=== PATIENT | male | born 1970 | race Two or more races ===

== ENCOUNTER 2020-02-09 13:24 | Inpatient (IN) | payer MEDICAID ==
[~2020-02-09] VITALS: Ht 172.7 cm; Wt 88.5 kg
--- NOTE | 2020-02-09 13:35 | NUR ---
ED Nurse Note: Patient walked in to ER from home c/o SOB x 1 week, his is COVID (+), pt appears to be in respiratory distress O2 saturation 77% on RA, 100.8 oral temp. Patient AAO x4, walked in with steady gait, skin is hot to touch
--- NOTE | 2020-02-09 13:38 | NUR ---
ED Nurse Note: IV line was established on right AC 18ga, blood sent to lab
[2020-02-09 13:40] VITALS: BP 133/77
[2020-02-09] MEDS ORDERED: cefTRIAXone 1 GM in NS 55 ML IV ONE (14:00)
[2020-02-09] MEDS ORDERED: Azithromycin 500 MG in NS 275 ML IVPB ONE (14:00)
[2020-02-09] MEDS ORDERED: Acetaminophen 500mg (ES) tab ORAL ONE (14:00)
[2020-02-09] MEDS ORDERED: dexAMETHasone 10mg/ml Inj IV ONE (14:00)
--- NOTE | 2020-02-09 14:02 | Emergency Room Report ---
History of Present Illness General Chief Complaint: Dyspnea/Respdistress Source: Patient Present Illness HPI Disclaimer: Please note that this report is being documented using Plex[employer] technology. This can lead to erroneous entry secondary to incorrect interpretation by the dictating instrument. HPI: 49-year-old male history of hypertension, asthma and diabetes presents for evaluation of shortness of breath. Patient states he has been feeling fatigued, low-grade fevers, chest congestion with cough and worsening shortness of breath over the past 2 weeks. His was diagnosed with COVID-19 last week but he himself has not yet been tested. Worsening shortness of breath over the past few days. Has not taken any medication prior to arrival. Is no longer using medication for diabetes or asthma. Denies smoking. Has not taken medication prior to arrival. No exacerbating or relieving factors. Denies chest pain, palpitations, abdominal pain, nausea. Reports diarrhea yesterday. PMH: Hypertension, asthma, diabetes PSH: Reviewed Allergies: Denied Social Hx: Non-smoker Allergies: Coded Allergies: No Known Allergies (Unverified , 02/09/20) COVID-19 Screening Contact w/high risk pt: Yes Experienced COVID-19 symptoms?: Yes COVID-19 Testing performed SUPPORT TECHNICIAN: No Nursing Documentation-PMH Hx Diabetes: Yes Review of Systems All Other Systems: negative except mentioned in HPI Physical Exam Vital Signs Date Time Temp Pulse Resp B/P (MAP) Pulse Ox O2 Delivery O2 Flow Rate FiO2 02/09/20 13:30 100.8 122 31 78 Room Air General: Awake and alert, appears uncomfortable HEENT: NC/AT. EOMI. Cardiovascular: Tachycardic Resp: Tachypnea and increased work of breathing. 78% on room air. Abdomen: Abdomen is soft, nondistended. Nontender Skin: Intact. No abrasions, laceration or rash over the exposed skin MSK: Normal tone and bulk. Moving all extremities. No obvious deformity. Neuro: Awake and alert. Mentating appropriately. Procedures Critical Care Time Critical Care Time Total critical care time: Approximately 45 minutes Due to a high probability of clinically significant, life threatening deterioration, the patient required the highest level of preparedness to intervene emergently and I personally spent this critical care time directly and personally managing the patient. This critical care time included obtaining a history, examining the patient, pulse oximetry, ordering and reviewing studies, ordering treatments, evaluating response to treatment and updating management plan as needed, frequent reassessment and discussion with other providers as well as arranging for ultimate disposition. This critical to care time was performed to assess and manage the high probability of life-threatening deterioration that could result in multiorgan failure. This critical care time is separate from the separately billable procedures and treating other patients. Medical Decision Making Diagnostic Impression: Primary Impression: Hypoxia Additional Impressions: COVID-19 Pneumonia Elevated d-dimer ER Course 49-year-old male presenting for evaluation of shortness of breath. Differential includes is not limited to COVID-19, pneumonia, asthma exacerbation, sepsis, viral syndrome, ACS, bronchitis, pneumothorax among others. Patient arrives hypoxic and given the recent positive COVID-19 test for his strong suspicion for COVID-19. Send rapid swab patient placed on supplemental oxygen which improved saturation to 95% on 15 L nonrebreather however he will require BiPAP for his work of breathing. Treated with dexamethasone and antibiotics. D-dimer positive and patient treated with Lovenox. Broad labs including culture sent. Will require admission. Accepted to panel physicianJaycee. Laboratory Tests Test 02/09/20 14:10 White Blood Count 7.2 K/UL (4.8-10.8) Red Blood Count 5.39 M/UL (4.70-6.10) Hemoglobin 15.8 G/DL (14.2-18.0) Hematocrit 47.7 % (42.0-52.0) Mean Corpuscular Volume 89 FL (80-99) Mean Corpuscular Hemoglobin 29.3 PG (27.0-31.0) Mean Corpuscular Hemoglobin Concent 33.1 G/DL (32.0-36.0) Red Cell Distribution Width 11.7 % (11.6-14.8) Platelet Count 290 K/UL (150-450) Mean Platelet Volume 5.6 FL (6.5-10.1) L Neutrophils (%) (Auto) 82.9 % (45.0-75.0) H Lymphocytes (%) (Auto) 13.4 % (20.0-45.0) L Monocytes (%) (Auto) 3.5 % (1.0-10.0) Eosinophils (%) (Auto) 0.0 % (0.0-3.0) Basophils (%) (Auto) 0.3 % (0.0-2.0) Prothrombin Time 10.9 SEC (9.30-11.50) Prothrombin Time INR 1.0 (0.9-1.1) Activated Partial Thromboplast Time 30 SEC (23-33) D-Dimer 0.73 mg/L FEU (0.00-0.49) H Sodium Level 134 MMOL/L (136-145) L Potassium Level 3.7 MMOL/L (3.5-5.1) Chloride Level 99 MMOL/L (98-107) Carbon Dioxide Level 26 MMOL/L (21-32) Anion Gap 9 mmol/L (5-15) Blood Urea Nitrogen 11 mg/dL (7-18) Creatinine 0.8 MG/DL (0.55-1.30) Estimated Glomerular Filtration Rate > 60 mL/min (>60) Glucose Level 246 MG/DL (74-106) H Lactic Acid Level 1.70 mmol/L (0.4-2.0) Calcium Level 8.9 MG/DL (8.5-10.1) Phosphorus Level 2.6 MG/DL (2.5-4.9) Magnesium Level 2.0 MG/DL (1.8-2.4) Ferritin 1441 NG/ML (8-388) H Total Bilirubin 0.5 MG/DL (0.2-1.0) Aspartate Amino Transferase (AST) 53 U/L (15-37) H Alanine Aminotransferase (ALT) 57 U/L (12-78) Alkaline Phosphatase 64 U/L (46-116) Lactate Dehydrogenase 401 U/L (81-234) H Total Creatine Kinase 107 U/L (26-308) Creatine Kinase MB < 0.5 NG/ML (0.0-3.6) Creatine Kinase MB Relative Index 0.4 Troponin I 0.000 ng/mL (0.000-0.056) C-Reactive Protein, Quantitative 31.9 mg/dL (0.00-0.90) H Pro-B-Type Natriuretic Peptide 41 pg/mL (0-125) Total Protein 8.2 G/DL (6.4-8.2) Albumin 2.8 G/DL (3.4-5.0) L Globulin 5.4 g/dL Albumin/Globulin Ratio 0.5 (1.0-2.7) L Lipase 138 U/L (73-393) Microbiology Date/Time Source Procedure Growth Status 02/09/20 14:10 Nasopharynx SARS-CoV-2 RdRp Gene Assay - Final Complete EKG Diagnostic Results Troponin ordered: Yes When was troponin ordered?: Feb 09, 2020 EKG Time: 14:15 Rate: normal Rhythm: NSR ST Segments: no acute changes Other Impression Sinus rhythm, normal axis, normal intervals, QTC [address] segment elevation Rhythm Strip Diag. Results Rhythm Strip Time: 14:15 EP Interpretation: yes Rate: 100 Rhythm: NSR, no PVC's, no ectopy Chest X-Ray Diagnostic Results Chest X-Ray Diagnostic Results : Chest X-Ray Ordered: Yes # of Views/Limited/Complete: 1 View Indication: Shortness of Breath EP Interpretation: Yes Interpretation: no pneumothorax, other - Bilateral infiltrates. Possible right-sided effusion Impression: Other - Bilateral pneumonia Electronically Signed by: Electronically signed by Dr. Tj He MD Last Vital Signs Date Time Temp Pulse Resp B/P (MAP) Pulse Ox O2 Delivery O2 Flow Rate FiO2 02/09/20 13:30 100.8 122 31 78 Room Air Disposition: ADMITTED INPATIENT Condition: Serious Tj He MD Feb 09, 2020 14:02
[2020-02-09 14:16] LABS: BASOPHILS % (AUTO) 0.3 % (0.0-2.0); HEMATOCRIT 47.7 % (42.0-52.0); HEMOGLOBIN 15.8 G/DL (14.2-18.0); LYMPHOCYTES % (AUTO) 13.4 % (20.0-45.0); MEAN CORPUSCULAR VOLUME 89 FL (80-99); MONOCYTES % (AUTO) 3.5 % (1.0-10.0); NEUTROPHILS % (AUTO) 82.9 % (45.0-75.0); PLATELET COUNT 290 K/UL (150-450); RED BLOOD COUNT 5.39 M/UL (4.70-6.10); RED CELL DISTRIBUTION WIDTH 11.7 % (11.6-14.8); WHITE BLOOD COUNT 7.2 K/UL (4.8-10.8)
[2020-02-09 14:30] LABS: ANION GAP 9 mmol/L (5-15); BLOOD UREA NITROGEN 11 mg/dL (7-18); CALCIUM 8.9 MG/DL (8.5-10.1); CARBON DIOXIDE 26 MMOL/L (21-32); CHLORIDE 99 MMOL/L (98-107); CREATININE 0.8 MG/DL (0.55-1.30); POTASSIUM 3.7 MMOL/L (3.5-5.1); SODIUM 134 MMOL/L (136-145)
--- NOTE | 2020-02-09 14:38 | Diagnostic Imaging Report ---
EXAM: XR Chest, 1 View CLINICAL HISTORY: SOB TECHNIQUE: Frontal view of the chest. COMPARISON: No relevant prior studies available. FINDINGS: Bilateral airspace infiltrates. Some predilection for the periphery in the left lung. Question pneumonia, with particular concern for coronavirus infection in this distribution. Component of atelectasis at the right base with elevation of the hemidiaphragm. No pneumothorax. Heart is not grossly enlarged given portable technique. Degenerative changes of the shoulders. IMPRESSION: Bilateral airspace infiltrates. Question pneumonia, with particular concern for coronavirus infection. Right basilar atelectasis.
[2020-02-09 14:47] LABS: ALANINE AMINOTRANSFERASE 57 U/L (12-78); ALBUMIN 2.8 G/DL (3.4-5.0); ALBUMIN/GLOBULIN RATIO 0.5 (1.0-2.7); ALKALINE PHOSPHATASE 64 U/L (46-116); ASPARTATE AMINO TRANSFERASE 53 U/L (15-37); BILIRUBIN,TOTAL 0.5 MG/DL (0.2-1.0); CKMB < 0.5 NG/ML (0.0-3.6); CREATINE KINASE 107 U/L (26-308); LACTATE DEHYDROGENASE 401 U/L (81-234); PHOSPHORUS 2.6 MG/DL (2.5-4.9)
[2020-02-09 15:14] LABS: FERRITIN 1441 NG/ML (8-388)
[2020-02-09] MEDS ORDERED: Enoxaparin 60mg Inj SUBQ ONE (15:15)
[2020-02-09 15:40] VITALS: BP 132/77
--- NOTE | 2020-02-09 17:40 | NUR ---
ED Nurse Note: Patient resting in the bed, VSS at this time
[2020-02-09 18:28] VITALS: BP 128/77
--- NOTE | 2020-02-09 19:12 | NUR ---
HAND-OFF: Report given to SHARIF Vinson.
[2020-02-09] MEDS ORDERED: oxyCODONE 5mg IR tab ORAL PRN (19:30)
[2020-02-09] MEDS ORDERED: Milk of Magnesia 30ml Ud ORAL PRN (19:30)
[2020-02-09] MEDS ORDERED: Albuterol ud Inhalation HHN SCH (19:30)
[2020-02-09] MEDS ORDERED: Miralax 17gm pkt ORAL PRN (19:30)
[2020-02-09] MEDS ORDERED: Acetaminophen 500mg (ES) tab ORAL PRN (19:30)
--- NOTE | 2020-02-09 20:10 | NUR ---
TRANSFER TO FLOOR: Patient transferred to [facility] as ordered, per Jason . Report given to SHARIF Proctor. All Belongings sent with the pt. RN and screening nurse transferred pt to floor in stable condition
--- NOTE | 2020-02-09 20:17 | Cardiac Electrophysiology PN ---
Subjective Subjective Seen in ER and DW ER [id number] Objective Last 24 Hour Vital Signs Date Time Temp Pulse Resp B/P (MAP) Pulse Ox O2 Delivery O2 Flow Rate FiO2 02/09/20 18:28 98.9 74 30 128/77 98 Non-Rebreather 15.0 02/09/20 15:40 99.5 80 28 132/77 97 Non-Rebreather 15.0 02/09/20 14:34 99.8 02/09/20 13:40 100.8 91 31 133/77 78 Room Air 02/09/20 13:40 122 31 Room Air 02/09/20 13:30 100.8 122 31 78 Room Air Laboratory Tests Test 02/09/20 14:10 White Blood Count 7.2 K/UL (4.8-10.8) Red Blood Count 5.39 M/UL (4.70-6.10) Hemoglobin 15.8 G/DL (14.2-18.0) Hematocrit 47.7 % (42.0-52.0) Mean Corpuscular Volume 89 FL (80-99) Mean Corpuscular Hemoglobin 29.3 PG (27.0-31.0) Mean Corpuscular Hemoglobin Concent 33.1 G/DL (32.0-36.0) Red Cell Distribution Width 11.7 % (11.6-14.8) Platelet Count 290 K/UL (150-450) Mean Platelet Volume 5.6 FL (6.5-10.1) L Neutrophils (%) (Auto) 82.9 % (45.0-75.0) H Lymphocytes (%) (Auto) 13.4 % (20.0-45.0) L Monocytes (%) (Auto) 3.5 % (1.0-10.0) Eosinophils (%) (Auto) 0.0 % (0.0-3.0) Basophils (%) (Auto) 0.3 % (0.0-2.0) Prothrombin Time 10.9 SEC (9.30-11.50) Prothromb Time International Ratio 1.0 (0.9-1.1) Activated Partial Thromboplast Time 30 SEC (23-33) D-Dimer 0.73 mg/L FEU (0.00-0.49) H Sodium Level 134 MMOL/L (136-145) L Potassium Level 3.7 MMOL/L (3.5-5.1) Chloride Level 99 MMOL/L (98-107) Carbon Dioxide Level 26 MMOL/L (21-32) Anion Gap 9 mmol/L (5-15) Blood Urea Nitrogen 11 mg/dL (7-18) Creatinine 0.8 MG/DL (0.55-1.30) Estimat Glomerular Filtration Rate > 60 mL/min (>60) Glucose Level 246 MG/DL (74-106) H Lactic Acid Level 1.70 mmol/L (0.4-2.0) Calcium Level 8.9 MG/DL (8.5-10.1) Phosphorus Level 2.6 MG/DL (2.5-4.9) Magnesium Level 2.0 MG/DL (1.8-2.4) Ferritin 1441 NG/ML (8-388) H Total Bilirubin 0.5 MG/DL (0.2-1.0) Aspartate Amino Transf (AST/SGOT) 53 U/L (15-37) H Alanine Aminotransferase (ALT/SGPT) 57 U/L (12-78) Alkaline Phosphatase 64 U/L (46-116) Lactate Dehydrogenase 401 U/L (81-234) H Total Creatine Kinase 107 U/L (26-308) Creatine Kinase MB < 0.5 NG/ML (0.0-3.6) Creatine Kinase MB Relative Index 0.4 Troponin I 0.000 ng/mL (0.000-0.056) C-Reactive Protein, Quantitative 31.9 mg/dL (0.00-0.90) H Pro-B-Type Natriuretic Peptide 41 pg/mL (0-125) Total Protein 8.2 G/DL (6.4-8.2) Albumin 2.8 G/DL (3.4-5.0) L Globulin 5.4 g/dL Albumin/Globulin Ratio 0.5 (1.0-2.7) L Lipase 138 U/L (73-393) Microbiology Date/Time Source Procedure Growth Status 02/09/20 14:10 Nasopharynx SARS-CoV-2 RdRp Gene Assay - Final Complete Kiko Rubalcava MD Feb 09, 2020 20:17
--- NOTE | 2020-02-09 20:22 | NUR ---
NURSE NOTES: Received report from SHARIF Vinson. 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 R AC 18g asymptomatic and flushing well. No complaints of pain. Vital signs are BP 128/98, 83 BPM, T 97.5. Will continue to monitor.
--- NOTE | 2020-02-09 20:31 | History and Physical ---
History of Present Illness General Date patient seen: Feb 09, 2020 Reason for Hospitalization: Dyspnea/Respdistress Present Illness Allergies: Coded Allergies: No Known Allergies (Unverified , 02/09/20) COVID-19 Screening Contact w/high risk pt: Yes Experienced COVID-19 symptoms?: Yes Coronavirus symptoms experienc: Shortness of Breath, Cough Patient History Healthcare decision maker Resuscitation status Full Code Advanced Directive on File Patient History Narrative Maltese Interpretor used This is a 49-year-old male with a past medical history of diabetes, hypertension, asthma who presents with 2-week history of worsening productive cough and shortness of breath. Also with subjective fever and chills. His was diagnosed with COVID-19 but he himself has not yet been tested. His symptoms have worsened over the past few days. He had some chest pain, midsternal, pleuritic, non-radiating, 2/10, earlier in the day which has now resolved. Also with some palpitations. But no dizziness, syncope or near syncope. Patient febrile to 100.8 tachycardic to 122 and working hard to breathe on admission. He was placed on nonrebreather and saturating 95 to 96%. Covid positive. Chest x-ray showing bilateral infiltrates. Troponin negative. EKG showing normal sinus rhythm no ischemic changes, QTC 425. He was given 1 L of fluid, Rocephin, azithromycin and dexamethasone. Allergies: NKDA Meds: none PMHx: See HPI SurgHx: none Family history: Mother DM Social Hx: Harvey tobacco, etoh or drug use Review of Systems ROS Narrative Review of systems: Constitutional: Endorses chills and fatigue HEENT: Denies: eye pain, blurred vision, double vision, ear pain, nose pain, throat pain, Cardiovascular: Denies: chest pain, edema, lightheadedness, palpitations Respiratory: Endorses cough and SOB Gastrointestinal/Abdominal: Denies: abdominal pain, black stools, blood in stool, constipation, diarrhea, nausea, poor fluid intake vomiting, other Genitourinary: Denies: burning, discharge, frequency, Neurologic/Psychiatric: Denies: headache, numbness, paresthesia, new weakness, other Endocrine: Denies: excessive sweating, flushing, intolerance to cold, MSK: denies joint pains, swelling, stiffness Hematologic/Lymphatic: Denies: anemia, easy bleeding, easy bruising, Psych: no anxiety, depression, SI or HI Physical Exam Physical Exam Narrative General: WDWN male in NAD, A&O x 4 HEENT: Normocephalic cephalic atraumatic, pupils equal round reactive to light and accommodation, nares patent and no symmetrical, no tonsillar exudates, mucous membranes moist CV: Regular rate regular rhythm, no murmurs, rubs, or gallops Pulm: Lungs clear to auscultation bilaterally. No wheezes, rhonchi, or rales GI: Soft, nontender, nondistended, bowel sounds present Neuro: CN 2-12 intact bilaterally, no focal signs. Ext: No lower extremity edema bilaterally Skin: no rashes lesions or ulcers Msk: Joints symmetrical in upper extremity and lower extremity bilaterally, no joint swelling. Lymph: No lymphadenopathy in upper extremity and lower extremity Last 24 Hour Vital Signs Date Time Temp Pulse Resp B/P (MAP) Pulse Ox O2 Delivery O2 Flow Rate FiO2 02/09/20 18:28 98.9 74 30 128/77 98 Non-Rebreather 15.0 02/09/20 15:40 99.5 80 28 132/77 97 Non-Rebreather 15.0 02/09/20 14:34 99.8 02/09/20 13:40 100.8 91 31 133/77 78 Room Air 02/09/20 13:40 122 31 Room Air 02/09/20 13:30 100.8 122 31 78 Room Air Laboratory Tests Test 02/09/20 14:10 White Blood Count 7.2 K/UL (4.8-10.8) Red Blood Count 5.39 M/UL (4.70-6.10) Hemoglobin 15.8 G/DL (14.2-18.0) Hematocrit 47.7 % (42.0-52.0) Mean Corpuscular Volume 89 FL (80-99) Mean Corpuscular Hemoglobin 29.3 PG (27.0-31.0) Mean Corpuscular Hemoglobin Concent 33.1 G/DL (32.0-36.0) Red Cell Distribution Width 11.7 % (11.6-14.8) Platelet Count 290 K/UL (150-450) Mean Platelet Volume 5.6 FL (6.5-10.1) L Neutrophils (%) (Auto) 82.9 % (45.0-75.0) H Lymphocytes (%) (Auto) 13.4 % (20.0-45.0) L Monocytes (%) (Auto) 3.5 % (1.0-10.0) Eosinophils (%) (Auto) 0.0 % (0.0-3.0) Basophils (%) (Auto) 0.3 % (0.0-2.0) Prothrombin Time 10.9 SEC (9.30-11.50) Prothromb Time International Ratio 1.0 (0.9-1.1) Activated Partial Thromboplast Time 30 SEC (23-33) D-Dimer 0.73 mg/L FEU (0.00-0.49) H Sodium Level 134 MMOL/L (136-145) L Potassium Level 3.7 MMOL/L (3.5-5.1) Chloride Level 99 MMOL/L (98-107) Carbon Dioxide Level 26 MMOL/L (21-32) Anion Gap 9 mmol/L (5-15) Blood Urea Nitrogen 11 mg/dL (7-18) Creatinine 0.8 MG/DL (0.55-1.30) Estimat Glomerular Filtration Rate > 60 mL/min (>60) Glucose Level 246 MG/DL (74-106) H Lactic Acid Level 1.70 mmol/L (0.4-2.0) Calcium Level 8.9 MG/DL (8.5-10.1) Phosphorus Level 2.6 MG/DL (2.5-4.9) Magnesium Level 2.0 MG/DL (1.8-2.4) Ferritin 1441 NG/ML (8-388) H Total Bilirubin 0.5 MG/DL (0.2-1.0) Aspartate Amino Transf (AST/SGOT) 53 U/L (15-37) H Alanine Aminotransferase (ALT/SGPT) 57 U/L (12-78) Alkaline Phosphatase 64 U/L (46-116) Lactate Dehydrogenase 401 U/L (81-234) H Total Creatine Kinase 107 U/L (26-308) Creatine Kinase MB < 0.5 NG/ML (0.0-3.6) Creatine Kinase MB Relative Index 0.4 Troponin I 0.000 ng/mL (0.000-0.056) C-Reactive Protein, Quantitative 31.9 mg/dL (0.00-0.90) H Pro-B-Type Natriuretic Peptide 41 pg/mL (0-125) Total Protein 8.2 G/DL (6.4-8.2) Albumin 2.8 G/DL (3.4-5.0) L Globulin 5.4 g/dL Albumin/Globulin Ratio 0.5 (1.0-2.7) L Lipase 138 U/L (73-393) Microbiology Date/Time Source Procedure Growth Status 02/09/20 14:10 Nasopharynx SARS-CoV-2 RdRp Gene Assay - Final Complete Height (Feet): 5 Height (Inches): 8.00 Weight (Pounds): 200 Medications Current Medications Medications (Trade) Dose Ordered Sig/Deepa Route PRN Reason Start Time Stop Time Status Last Admin Dose Admin Acetaminophen (Tylenol) 500 mg Q6H PRN ORAL Mild Pain (Pain Scale 1-3) 02/09/20 19:30 03/10/20 19:29 Acetaminophen (Tylenol) 500 mg Q6H PRN ORAL Temp >100.5 02/09/20 19:45 03/10/20 19:44 Albuterol/ Ipratropium (Combivent Respimat) 1 puff Q6HRT INH 02/10/20 20:00 03/11/20 19:59 Bisacodyl (Dulcolax) 10 mg DAILYPRN PRN RECTAL Constipation 02/09/20 19:30 05/09/20 19:29 Ceftriaxone Sodium 1 gm/ Dextrose 55 ml @ 110 mls/hr Q24H IVPB 02/10/20 14:00 02/17/20 13:59 Dexamethasone Sodium Phosphate (Decadron 10mg/ ml Inj) 6 mg DAILY IV 02/10/20 09:00 02/19/20 09:01 Dextrose (Dextrose 50%) 25 ml Q30M PRN IV Hypoglycemia 02/09/20 19:30 05/09/20 19:29 Dextrose (Dextrose 50%) 50 ml Q30M PRN IV Hypoglycemia 02/09/20 19:30 05/09/20 19:29 Diphenhydramine HCl (Benadryl) 25 mg Q6H PRN ORAL Itching/Pruritis 02/09/20 19:30 03/10/20 19:29 Docusate Sodium (Colace) 100 mg EVERY 12 HOURS ORAL 02/09/20 21:00 03/10/20 20:59 Doxycycline Monohydrate (Doxycycline Monohydrate) 100 mg EVERY 12 HOURS ORAL 02/09/20 21:00 02/16/20 20:59 Enoxaparin Sodium (Lovenox) 40 mg Q24H SUBQ 02/10/20 15:00 05/10/20 14:59 Hydralazine HCl (Apresoline) 10 mg Q4H PRN IV htn 02/09/20 20:30 05/09/20 20:29 Insulin Aspart (NovoLOG) BEFORE MEALS AND HS SUBQ 02/09/20 21:00 05/09/20 20:59 Magnesium Hydroxide (Mom) 30 ml HSPRN PRN ORAL Constipation 02/09/20 19:30 03/10/20 19:29 Ondansetron HCl (Zofran) 4 mg Q6H PRN IVP Nausea & Vomiting 02/09/20 19:30 03/10/20 19:29 Oxycodone HCl (Roxicodone) 5 mg Q6H PRN ORAL pain 4-10 02/09/20 19:30 02/16/20 19:29 Pantoprazole (Protonix) 40 mg DAILY ORAL 02/10/20 09:00 03/11/20 08:59 Polyethylene Glycol (Miralax) 17 gm DAILYPRN PRN ORAL Constipation 02/09/20 19:30 03/10/20 19:29 Prochlorperazine (Compazine) 10 mg Q6H PRN IVP Nausea & Vomiting 02/09/20 19:30 03/10/20 19:29 Remdesivir 100 mg/ Sodium Chloride 250 ml @ 250 mls/hr Q24H IV 02/10/20 21:00 02/13/20 21:59 Remdesivir 200 mg/ Sodium Chloride 250 ml @ 125 mls/hr ONCE IV 02/09/20 21:00 02/09/20 22:59 Assessment/Plan Assessment/Plan: #Acute hypoxic respiratory failure secondary to Covid pneumonia #?CAP #Covid pneumonia #Dyspnea #Sinus tachycardia due to COVID pna #chest pain, resolved. Likely related to COVID. Appreciate cards input #Fever due to above #asthma, does not appear to be in exacerbation > onset of symptoms around 11/19 > Admission labs: dimer 0.73, trop neg, lactate 1.7, CRP 31 > CXR with bilateral infiltrates -Admit to SDU -ABG PRN -Wean to keep sats >92% -Appreciate pulmonary consult: Dr. Malagon -Appreciate ID consult: Dr. Thompson -Appreciate Cardiology consult: Dr. Rubalcava -Trend inflammatory markers -Follow blood cultures -Keep on dry side -Remdesivir per ID (1/2 - ) -Decadron 6mg Daily (/2 - ) -Rocephin 1gm daily (12 - ) -Doxycyline 100mg Q12hr (2 - ) -Albuterol Q6hr #Diabetes mellitus type 2 Accu-Cheks before meals and at bedtime Diabetic diet SSI Hypoglycemia protocol FENPPX DVTPPX:Lovenox GI PPX: protonix Fluids: PRN Diet: diabetic Lines: peripheral PT/OT: pending Code status: Full Dispo: Home vs. rehab Reason for Continued Hospitalization: hypoxia MIPS (Merit-based Incentive Payment System) Applicable CPT: 01864, 10239 CHECK ALL THAT ARE MET: [] Measure #5 (CHF): All ages. Prescribe ROYA/ARB upon discharge for patients with left ventricular systolic dysfunction. If not, the reason is clearly documented in the medical chart [] Measure #8 (CHF): All ages. Prescribe a beta yudy upon discharge for patients with left ventricular systolic dysfunction. If not, the reason is clearly documented in the medical chart. [x] Measure #47: Advance care plan or surrogate decision maker documented in the medical record. [x] Measure #130 The provider has documented, updated, or reviewed the patients current medication list and has documented it in the patients note. [x] Measure #374 (All): Send report to referring provider. [] Measure #407(Sepsis due to MSSA bacteremia): Age 18+ Patient treated with a beta-lactam antibiotic (Nafcillin, Oxacillin or Cefazolin) as definitive ther apy. MEDICAL COMPLEXITYHigh complexity medical decision making (need 2/3 categories)Problem - need 4 points [x]Acute/new problem with new plan for workup (4 points, 1 max) [] Acute/new problem without additional workup (3 points, 1 max) [x] Unstable chronic problem actively being managed (2 point each, 2 max) [x] Stable chronic problem actively being managed (1 point each, 2 max) [] Self-limited/transient process (constipation, muscle ache, etc) (1 point each, 2 max) Data - need 4 points [x] Reviewed labs/imaging studies (1 points, 2 max) [x] Independent review of imaging (EKG, xrays, etc) (2 points, 2 max) [x] Discussed case with consult/other MD/RN (2 points, 2 max) High Risk - qualify if have one of the following: [x] Severe exacerbation of acute problem, acute mental status change, IV narcotics, monitoring drug levels (vancomycin, INR, tacrolimus etc) I spent 72 minutes on this patient's case, and 40 mins was dedicated to counseling and/or care coordination. Discussed with ID, cardiology, pulmonology, RN Time of note may not reflect time of encounter Salvatore Alexandra D.O. Feb 09, 2020 20:31
--- NOTE | 2020-02-09 20:45 | General Progress Note ---
Advance Care Planning Advance Care Planning Advance Care Planning [facility] An independent Hospitalist group, where every patient is our [facility] Internal Medicine Hospitalist Advanced Care Planning Note Please contact us at Date of Discussion: A [id number] discussion with the patient regarding the patient's advanced care planning took place during this hospitalization on the above date. The discussion included the explanation and discussion of advance directives and associated forms/documents, as well as the patient's current code status. We also discussed at length the patient's medical conditions (both acute and chroni c), general prognosis, treatment options, and goals of care. The following summarizes the discussion: Advance Care Planning/Goals of Care: - Will attempt to fill out an AD and/or POLST with the patient prior to discharge, if not already completed - Continue current evaluation and management of any acute and chronic medical issues - Will continue to support the patient/family - Will continue to discuss both short- and long-term goals of care DPOA-HC/Surrogate Decision Maker: None currently appointed Code Status: Full Code Advanced Care Planning Forms/Documents Completed: Deferred until later encounter/visit A total of 16 minutes was spent on this discussion, including counseling, answering questions, and completing, if any, pertinent advanced care planning forms/documents. Time of note may not reflect time of encounter. Salvatore Alexandra D.O. Feb 09, 2020 20:45
[2020-02-09] MEDS: Doxycycline Monohydrate 100mg ORAL SCH (20:59)
[2020-02-09] MEDS: Docusate 100mg cap ORAL SCH (20:59)
[2020-02-09] MEDS ORDERED: Loading Dose:Remdesivir 200mg/NS 210ml IV SCH ×2 (21:00)
--- NOTE | 2020-02-09 21:05 | Consultation ---
Consult Note Consult Note PULMONARY & CRITICAL CARE CONSULTATION 02/09/20 REFERRED BY:Salvatore Alexandra DO REASON FOR CONSULTATION: COVID PNA and hypoxemia HPI: 49M h/o obesity, DM and HTN p/w cough, fevers and SOB 2 weeks. He did not have a prior COVID test but his has COVID. He did not taken any OTC meds prior to coming. In the ER Tm 100.8, S @ 122 and VSS o/w on 15L NRBFM. CXR with b infiltrates, COVID PCR +, ferritin 1441, LDH 401, CRP 31, D-dimer 0.73. He h as been off of DM and asthma meds for some time. PMH: DM. asthma, HTN PSH: None ALL: NKDA MEDS: None SHx: , no ESTRELLITA use FHx: N/C ROS: Unobtained PE: Last 24 Hour Vital Signs Date Time Temp Pulse Resp B/P (MAP) Pulse Ox O2 Delivery O2 Flow Rate FiO2 02/09/20 20:10 98.7 69 26 132/69 96 Non-Rebreather 15.0 02/09/20 18:28 98.9 74 30 128/77 98 Non-Rebreather 15.0 02/09/20 15:40 99.5 80 28 132/77 97 Non-Rebreather 15.0 02/09/20 14:34 99.8 02/09/20 13:40 100.8 91 31 133/77 78 Room Air 02/09/20 13:40 122 31 Room Air 02/09/20 13:30 100.8 122 31 78 Room Air Overweight male, mild respiratory distress Further exam deferred 03/11 COVID19 ISO, PPE requirements and hospital policy CXR: B INF Laboratory Tests Test 02/09/20 14:10 White Blood Count 7.2 K/UL (4.8-10.8) Red Blood Count 5.39 M/UL (4.70-6.10) Hemoglobin 15.8 G/DL (14.2-18.0) Hematocrit 47.7 % (42.0-52.0) Mean Corpuscular Volume 89 FL (80-99) Mean Corpuscular Hemoglobin 29.3 PG (27.0-31.0) Mean Corpuscular Hemoglobin Concent 33.1 G/DL (32.0-36.0) Red Cell Distribution Width 11.7 % (11.6-14.8) Platelet Count 290 K/UL (150-450) Mean Platelet Volume 5.6 FL (6.5-10.1) L Neutrophils (%) (Auto) 82.9 % (45.0-75.0) H Lymphocytes (%) (Auto) 13.4 % (20.0-45.0) L Monocytes (%) (Auto) 3.5 % (1.0-10.0) Eosinophils (%) (Auto) 0.0 % (0.0-3.0) Basophils (%) (Auto) 0.3 % (0.0-2.0) Prothrombin Time 10.9 SEC (9.30-11.50) Prothromb Time International Ratio 1.0 (0.9-1.1) Activated Partial Thromboplast Time 30 SEC (23-33) D-Dimer 0.73 mg/L FEU (0.00-0.49) H Sodium Level 134 MMOL/L (136-145) L Potassium Level 3.7 MMOL/L (3.5-5.1) Chloride Level 99 MMOL/L (98-107) Carbon Dioxide Level 26 MMOL/L (21-32) Anion Gap 9 mmol/L (5-15) Blood Urea Nitrogen 11 mg/dL (7-18) Creatinine 0.8 MG/DL (0.55-1.30) Estimat Glomerular Filtration Rate > 60 mL/min (>60) Glucose Level 246 MG/DL (74-106) H Lactic Acid Level 1.70 mmol/L (0.4-2.0) Calcium Level 8.9 MG/DL (8.5-10.1) Phosphorus Level 2.6 MG/DL (2.5-4.9) Magnesium Level 2.0 MG/DL (1.8-2.4) Ferritin 1441 NG/ML (8-388) H Total Bilirubin 0.5 MG/DL (0.2-1.0) Aspartate Amino Transf (AST/SGOT) 53 U/L (15-37) H Alanine Aminotransferase (ALT/SGPT) 57 U/L (12-78) Alkaline Phosphatase 64 U/L (46-116) Lactate Dehydrogenase 401 U/L (81-234) H Total Creatine Kinase 107 U/L (26-308) Creatine Kinase MB < 0.5 NG/ML (0.0-3.6) Creatine Kinase MB Relative Index 0.4 Troponin I 0.000 ng/mL (0.000-0.056) C-Reactive Protein, Quantitative 31.9 mg/dL (0.00-0.90) H Pro-B-Type Natriuretic Peptide 41 pg/mL (0-125) Total Protein 8.2 G/DL (6.4-8.2) Albumin 2.8 G/DL (3.4-5.0) L Globulin 5.4 g/dL Albumin/Globulin Ratio 0.5 (1.0-2.7) L Lipase 138 U/L (73-393) Assessment/Plan ASSESSMENT/PROBLEM LIST: * COVID 19 PNEUMONIA * ACUTE HYPOXEMIC RESPIRATORY FAILURE 2/2 ABOVE * B PULMONARY INFILTRATES 2/2 ABOVE * Asthma * DM * HTN * Obestiy PLAN: * ABG * Optimize pulmonary hygiene/mobilize as tolerated * Titrate down FiO2 to keep SaO2 > 90% * Dex D1 * Rem D1 * COMBIVENT * Monitor inflammatory labs * Monitor volumes and renal function * DVT Px: LMWH * FC D/W Mikal Melendez MD Feb 09, 2020 21:05
[2020-02-09] MEDS: NovoLOG Insulin Flexpen SUBQ SCH (21:19)
--- NOTE | 2020-02-09 22:50 | NUR ---
NURSE NOTES: Offered oral care, inserted R Wrist 22g IV. Pt is stable at this time, denies pain or discomfort.
[2020-02-10] VITALS: BP 132/84
[2020-02-10] MEDS ORDERED: Ipratropium 0.02% Inh Soln 2.5ml UD HHN SCH
--- NOTE | 2020-02-10 02:14 | Consultation ---
DATE OF CONSULTATION: 02/09/2020 CARDIOLOGY CONSULTATION CONSULTING PHYSICIAN: Kiko Rubalcava M.D. REFERRING PHYSICIAN: Christiano Champion M.D. REASON FOR CONSULTATION: Management of hypertension and tachycardia in addition with COVID-19 pneumonia. HISTORY OF PRESENT ILLNESS: The patient is a 49-year-old gentleman with history of hypertension, diabetes, and asthma who presents for evaluation of increased shortness of breath. The patient has been feeling fatigued and had low-grade fever and chest congestion with cough. This shortness of breath has gotten worse in the last 2 weeks. His was diagnosed with COVID-19 last week, but he himself has not been tested. The patient has not been using any medication for diabetes or asthma. Denies smoking. The patient reports diarrhea yesterday as well. The patient came to the emergency room for tachycardia with heart rate of 122 with temperature 100.8. Cardiology consultation was obtained for further evaluation and management. At the time of my evaluation, the patient is in the emergency room on non-rebreather face mask. REVIEW OF SYSTEMS: Negative other than what is mentioned in the history of present illness. PAST MEDICAL HISTORY: As mentioned above. FAMILY HISTORY: Noncontributory. SOCIAL HISTORY: He lives at home. Does not use drugs or drink alcohol. PHYSICAL EXAMINATION: VITAL SIGNS: Blood pressure is 110/70, pulse is 110, respiration is 31, pulse oximetry 78%. HEAD AND NECK: Shows no JVD. LUNGS: Coarse rhonchi. CARDIOVASCULAR: Shows regular S1 and S2 and tachycardic. ABDOMEN: Soft. EXTREMITIES: No pitting edema. LABORATORY AND DIAGNOSTIC DATA: Labs show white count 7.2, hemoglobin of 15.2, hematocrit of 47%, and platelet count of 290. INR is 1. D-dimer is 0.73. Sodium 134, potassium 3.7, BUN of 11, creatinine of 0.8, and glucose of 246. Lactic acid is 1.7. Troponin is negative. BNP is . His COVID-19 was positive. ASSESSMENT AND PLAN: 1. Tachycardia due to respiratory failure due to COVID-19. His EKG shows sinus rhythm with right bundle-branch block. We will get an echocardiogram for further evaluation. 2. COVID-19 pneumonia. The patient is on dexamethasone as well as ceftriaxone and non-rebreather face mask. 3. History of hypertension, on p.r.n. IV hydralazine. As the blood pressure in 120s, avoid clonidine or beta-yudy as the patient with risk of bradycardia. 4. Diabetes, on sliding scale insulin. Thank you very much for allowing me to participate in the care of this patient. Please do not hesitate to contact me for any questions regarding my evaluation. Sincerely, Kiko Rubalcava M.D. DR: Jean-Claude JOB#: [id number] CC:
--- NOTE | 2020-02-10 03:36 | NUR ---
NURSE NOTES: Assisted pt to bedside commode. Pt had one small brown formed stool. No discomfort or pain verbalized. Will continue plan of care. Will continue to monitor.
[2020-02-10 04:00] VITALS: BP 117/86
[2020-02-10 04:39] LABS: HEMATOCRIT 42.6 % (42.0-52.0); HEMOGLOBIN 14.5 G/DL (14.2-18.0); MEAN CORPUSCULAR VOLUME 88 FL (80-99); PLATELET COUNT 325 K/UL (150-450); RED BLOOD COUNT 4.86 M/UL (4.70-6.10); RED CELL DISTRIBUTION WIDTH 12.2 % (11.6-14.8); WHITE BLOOD COUNT 8.3 K/UL (4.8-10.8)
[2020-02-10 05:12] LABS: PHOSPHORUS 3.6 MG/DL (2.5-4.9)
[2020-02-10 05:32] LABS: ALANINE AMINOTRANSFERASE 52 U/L (12-78); ALBUMIN 2.4 G/DL (3.4-5.0); ALBUMIN/GLOBULIN RATIO 0.5 (1.0-2.7); ALKALINE PHOSPHATASE 58 U/L (46-116); ANION GAP 11 mmol/L (5-15); ASPARTATE AMINO TRANSFERASE 43 U/L (15-37); BILIRUBIN,TOTAL 0.4 MG/DL (0.2-1.0); BLOOD UREA NITROGEN 15 mg/dL (7-18); CALCIUM 9.3 MG/DL (8.5-10.1); CARBON DIOXIDE 23 MMOL/L (21-32); CHLORIDE 103 MMOL/L (98-107); CHOLESTEROL 189 MG/DL (< 200); CREATININE 0.7 MG/DL (0.55-1.30); HDL CHOLESTEROL 47 MG/DL (40-60); POTASSIUM 3.6 MMOL/L (3.5-5.1); SODIUM 137 MMOL/L (136-145); TRIGLYCERIDES 148 MG/DL (30-150)
[2020-02-10] MEDS: NovoLOG Insulin Flexpen SUBQ SCH ×4 (06:06→21:13)
--- NOTE | 2020-02-10 06:31 | NUR ---
NURSE NOTES: Assisted with oral care and partial bed bath. Pt tolerated well. O2 saturation noted to have dropped to 83% within 45s of oral care. Will continue to monitor.
--- NOTE | 2020-02-10 07:27 | NUR ---
NURSE HAND-OFF REPORT: Important Events on Shift:[Admitted to SDU] Patient Status: [Stable] Diet: [CCHO Medium] Pending Orders: [NA] Pending Results/Labs:[NA] Pending MD notification:[NA] Latest Vital Signs: Temperature 98.8 , Pulse 82 , B/P 117 /86 , Respiratory Rate 20 , O2 SAT 93 , Non-Rebreather, O2 Flow Rate 15.0 . Vital Sign Comment: [Stable] EKG Rhythm: Sinus Rhythm Rhythm change?: N MD Notified?: - MD Response: Latest [place] Fall Score: 35 Fall Risk: Medium Risk Safety Measures: Call light Within Reach, Bed Alarm Zone 1, Side Rails Side Rails x2, Bed position Low and Locked. Fall Precautions: Yellow Socks Patient Fall Education Report given to [SHARIF Gutierrez].
--- NOTE | 2020-02-10 07:30 | NUR ---
NURSE NOTES: Received pt from SHARIF Barrios, pt is awake and alert, pt has non rebreather mask high flow with spo2 92%, pt is on continues heart monitoring, pt has intact iv access RAC 18G and L wrist 22g SL. No complain of pain at this moment. all needs attended, bed is locked and is in the lowest position, call light within easy reach. will continue to monitor. Addendum: 02/10/20 at 0802 by Matt Ellison RN Received pt from SHARIF Okeefe.
[2020-02-10 08:00] VITALS: BP 133/79
[2020-02-10] MEDS: dexAMETHasone 10mg/ml Inj IV SCH (08:53)
[2020-02-10] MEDS: Docusate 100mg cap ORAL SCH ×2 (08:53→20:36)
[2020-02-10] MEDS: Doxycycline Monohydrate 100mg ORAL SCH ×2 (08:53→20:39)
[2020-02-10 12:00] VITALS: BP 132/88
--- NOTE | 2020-02-10 12:03 | Pulmonology Progress Note ---
Subjective Allergies: Coded Allergies: No Known Allergies (Unverified , 02/09/20) Subjective on 100 % NRM, denies C{, reports dry intermittent persistent cough, + chest discomfort with cough and deep breathingm started 02/08 on DEX and REM remains afebrile, no leukocytosis Objective Last 24 Hour Vital Signs Date Time Temp Pulse Resp B/P (MAP) Pulse Ox O2 Delivery O2 Flow Rate FiO2 02/10/20 08:00 Non-Rebreather 15.0 02/10/20 08:00 98.1 100 20 133/79 (97) 93 02/10/20 08:00 15.0 100 02/10/20 07:47 107 02/10/20 04:00 15.0 100 02/10/20 04:00 Non-Rebreather 15.0 02/10/20 04:00 89 02/10/20 04:00 98.8 82 20 117/86 (96) 93 02/10/20 00:00 15.0 100 02/10/20 00:00 99.0 83 28 132/84 (100) 92 02/10/20 00:00 Non-Rebreather 15.0 02/10/20 00:00 81 02/09/20 20:18 83 02/09/20 20:10 98.7 69 26 132/69 96 Non-Rebreather 15.0 02/09/20 20:03 Non-Rebreather 15.0 02/09/20 18:28 98.9 74 30 128/77 98 Non-Rebreather 15.0 02/09/20 15:40 99.5 80 28 132/77 97 Non-Rebreather 15.0 02/09/20 14:34 99.8 02/09/20 13:40 100.8 91 31 133/77 78 Room Air 02/09/20 13:40 122 31 Room Air 02/09/20 13:30 100.8 122 31 78 Room Air Intake and Output 02/09/20 02/10/20 19:00 07:00 Intake Total 480 ml Output Total 620 ml Balance -140 ml Intake Oral 480 ml Output Urine Total 620 ml # Voids 1 3 # Bowel Movements 2 General Appearance: WD/WN - middle age Spanisg speaking male in mild resp distress , no acute distress HEENT: normocephalic, atraumatic, anicteric, mucous membranes moist, PERRL Respiratory: decreased breath sounds Cardiovascular: normal rate, regular rhythm Abdomen: normal bowel sounds, soft, non tender Extremities: no edema, pedal pulses normal Skin: no rash 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 normal, no motor/sensory deficits, alert, oriented x 3, responsive Musculoskeletal: normal muscle bulk Microbiology Date/Time Source Procedure Growth Status 02/09/20 14:10 Nasopharynx SARS-CoV-2 RdRp Gene Assay - Final Complete Laboratory Tests 02/09/20 14:10: White Blood Count 7.2, Red Blood Count 5.39, Hemoglobin 15.8, Hematocrit 47.7, Mean Corpuscular Volume 89, Mean Corpuscular Hemoglobin 29.3, Mean Corpuscular Hemoglobin Concent 33.1, Red Cell Distribution Width 11.7, Platelet Count 290, Mean Platelet Volume 5.6L, Neutrophils (%) (Auto) 82.9H, Lymphocytes (%) (Auto) 13.4L, Monocytes (%) (Auto) 3.5, Eosinophils (%) (Auto) 0.0, Basophils (%) (Auto) 0.3, Prothrombin Time 10.9, Prothromb Time International Ratio 1.0, Activated Partial Thromboplast Time 30, D-Dimer 0.73H, Sodium Level 134L, Potassium Level 3.7, Chloride Level 99, Carbon Dioxide Level 26, Anion Gap 9, Blood Urea Nitrogen 11, Creatinine 0.8, Estimat Glomerular Filtration Rate > 60, Glucose Level 246H, Lactic Acid Level 1.70, Calcium Level 8.9, Phosphorus Level 2.6, Magnesium Level 2.0, Ferritin 1441H, Total Bilirubin 0.5, Aspartate Amino Transf (AST/SGOT) 53H, Alanine Aminotransferase (ALT/SGPT) 57, Alkaline Phosphatase 64, Lactate Dehydrogenase 401H, Total Creatine Kinase 107, Creatine Kinase MB < 0.5, Creatine Kinase MB Relative Index 0.4, Troponin I 0.000, C- Reactive Protein, Quantitative 31.9H, Pro-B-Type Natriuretic Peptide 41, Total Protein 8.2, Albumin 2.8L, Globulin 5.4, Albumin/Globulin Ratio 0.5L, Lipase 138 02/09/20 21:06: POC Whole Blood Glucose 243H 02/10/20 03:55: White Blood Count 8.3, Red Blood Count 4.86, Hemoglobin 14.5, Hematocrit 42.6, Mean Corpuscular Volume 88, Mean Corpuscular Hemoglobin 29.8, Mean Corpuscular Hemoglobin Concent 34.0, Red Cell Distribution Width 12.2, Platelet Count 325, Mean Platelet Volume 5.7L, Neutrophils (%) (Auto) , Lymphocytes (%) (Auto) , Monocytes (%) (Auto) , Eosinophils (%) (Auto) , Basophils (%) (Auto) , Sodium Level 137, Potassium Level 3.6, Chloride Level 103, Carbon Dioxide Level 23, Anion Gap 11, Blood Urea Nitrogen 15, Creatinine 0.7, Estimat Glomerular Filtration Rate > 60, Glucose Level 229H, Calcium Level 9.3, Phosphorus Level 3.6, Magnesium Level 1.9, Total Bilirubin 0.4, Aspartate Amino Transf (AST/SGOT) 43H, Alanine Aminotransferase (ALT/SGPT) 52, Alkaline Phosphatase 58, Troponin I 0.000, Pro-B-Type Natriuretic Peptide 50, Total Protein 7.5, Albumin 2.4L, Globulin 5.1, Albumin/Globulin Ratio 0.5L, Differential Total Cells Counted 100, Neutrophils % (Manual) 90H, Lymphocytes % (Manual) 6L, Monocytes % (Manual) 4, Eosinophils % (Manual) 0, Basophils % (Manual) 0, Band Neutrophils 0, Platelet Estimate Adequate, Platelet Morphology Normal, Red Blood Cell Morphology Normal, Hemoglobin A1c 8.4H, Direct Bilirubin 0.2, Triglycerides Level 148, Cholesterol Level 189, LDL Cholesterol 117H, HDL Cholesterol 47, Cholesterol/HDL Ratio 4.0, Thyroid Stimulating Hormone (TSH) 0.476, Free Thyroxine 1.33 02/10/20 05:57: POC Whole Blood Glucose 213H 02/10/20 11:04: POC Whole Blood Glucose [Pending] Current Medications Medications (Trade) Dose Ordered Sig/Deepa Route PRN Reason Start Time Stop Time Status Last Admin Dose Admin Acetaminophen (Tylenol) 500 mg Q6H PRN ORAL Mild Pain (Pain Scale 1-3) 02/09/20 19:30 03/10/20 19:29 Acetaminophen (Tylenol) 500 mg Q6H PRN ORAL Temp >100.5 02/09/20 19:45 03/10/20 19:44 Albuterol/ Ipratropium (Combivent Respimat) 1 puff Q6HRT INH 02/10/20 20:00 03/11/20 19:59 Bisacodyl (Dulcolax) 10 mg DAILYPRN PRN RECTAL Constipation 02/09/20 19:30 05/09/20 19:29 Ceftriaxone Sodium 1 gm/ Dextrose 55 ml @ 110 mls/hr Q24H IVPB 02/10/20 14:00 02/17/20 13:59 Dexamethasone Sodium Phosphate (Decadron 10mg/ ml Inj) 6 mg DAILY IV 02/10/20 09:00 02/19/20 09:01 02/10/20 08:53 Dextrose (Dextrose 50%) 25 ml Q30M PRN IV Hypoglycemia 02/09/20 19:30 05/09/20 19:29 Dextrose (Dextrose 50%) 50 ml Q30M PRN IV Hypoglycemia 02/09/20 19:30 05/09/20 19:29 Diphenhydramine HCl (Benadryl) 25 mg Q6H PRN ORAL Itching/Pruritis 02/09/20 19:30 03/10/20 19:29 Docusate Sodium (Colace) 100 mg EVERY 12 HOURS ORAL 02/09/20 21:00 03/10/20 20:59 02/10/20 08:53 Doxycycline Monohydrate (Doxycycline Monohydrate) 100 mg EVERY 12 HOURS ORAL 02/09/20 21:00 02/16/20 20:59 02/10/20 08:53 Enoxaparin Sodium (Lovenox) 40 mg Q24H SUBQ 02/10/20 15:00 05/10/20 14:59 Hydralazine HCl (Apresoline) 10 mg Q4H PRN IV htn 02/09/20 20:30 05/09/20 20:29 Insulin Aspart (NovoLOG) BEFORE MEALS AND HS SUBQ 02/09/20 21:00 05/09/20 20:59 02/10/20 06:06 Magnesium Hydroxide (Mom) 30 ml HSPRN PRN ORAL Constipation 02/09/20 19:30 03/10/20 19:29 Ondansetron HCl (Zofran) 4 mg Q6H PRN IVP Nausea & Vomiting 02/09/20 19:30 03/10/20 19:29 Oxycodone HCl (Roxicodone) 5 mg Q6H PRN ORAL pain 4-10 02/09/20 19:30 02/16/20 19:29 Pantoprazole (Protonix) 40 mg DAILY ORAL 02/10/20 09:00 03/11/20 08:59 02/10/20 08:53 Polyethylene Glycol (Miralax) 17 gm DAILYPRN PRN ORAL Constipation 02/09/20 19:30 03/10/20 19:29 Prochlorperazine (Compazine) 10 mg Q6H PRN IVP Nausea & Vomiting 02/09/20 19:30 03/10/20 19:29 Remdesivir 100 mg/ Sodium Chloride 250 ml @ 250 mls/hr Q24H IV 02/10/20 21:00 02/13/20 21:59 Assessment/Plan Assessment/Plan ASSESSMENT/PROBLEM LIST: * COVID 19 PNEUMONIA * ACUTE HYPOXEMIC RESPIRATORY FAILURE 2/2 ABOVE * B PULMONARY INFILTRATES 2/2 ABOVE * Asthma * DM * HTN * Obesity PLAN: * ABG * Optimize pulmonary hygiene/mobilize as tolerated * Titrate down FiO2 to keep SaO2 > 90% * Dex D2 ( 1/2 -) * Rem D2 ( 12 -) * COMBIVENT * Monitor inflammatory markers CRP 31.9-> * fup with CXR * Monitor volumes and renal function * DVT Px: LMWH * a/tussive prn * FC * f/up with consultants recs * * case discussed and evaluated by supervising physician Clarissa Loera NP Feb 10, 2020 12:03 Mikal Malagon MD Feb 10, 2020 20:47
[2020-02-10] MEDS: guaiFENesin /DM 10ml syrup ORAL PRN ×2 (12:28→17:32)
[2020-02-10] MEDS: cefTRIAXone 1 GM in D5W 55 ML IVPB SCH (13:12)
[2020-02-10] MEDS ORDERED: NS 275ml ONE (13:17)
[2020-02-10] MEDS ORDERED: Tubing IV Secondary IV ONE (13:18)
--- NOTE | 2020-02-10 13:50 | NUR ---
RESPIRATORY NOTE: ABG DRAWN ON NRB MASK. UNABLE TO ANALYZE PO2 AT THIS TIME. RN AWARE. ABG SATURATION IS 95.7 AND SPO2 IS @ 95%.
[2020-02-10 16:00] VITALS: BP 137/83
[2020-02-10] MEDS: Enoxaparin 40mg Inj SUBQ SCH (16:01)
--- NOTE | 2020-02-10 17:46 | Cardiac Electrophysiology PN ---
Assessment/Plan Assessment/Plan 1. Tachycardia due to respiratory failure due to COVID-19. His EKG shows sinus rhythm with right bundle-branch block. EF 65% on echocardiogram 2. COVID-19 pneumonia. The patient is on dexamethasone as well as ceftriaxone and non-rebreather face mask. 3. History of hypertension, on p.r.n. IV hydralazine. 4. Diabetes, on sliding scale insulin. Subjective Subjective On 15 liter VM and 100% Fio2. EF 65% in Sinus tach 100-120 Objective Last 24 Hour Vital Signs Date Time Temp Pulse Resp B/P (MAP) Pulse Ox O2 Delivery O2 Flow Rate FiO2 02/10/20 16:00 15.0 100 02/10/20 16:00 Non-Rebreather 15.0 02/10/20 16:00 93 02/10/20 12:01 97 02/10/20 12:00 Non-Rebreather 15.0 02/10/20 12:00 15.0 100 02/10/20 12:00 97.3 88 20 132/88 (103) 96 02/10/20 08:00 Non-Rebreather 15.0 02/10/20 08:00 98.1 100 20 133/79 (97) 93 02/10/20 08:00 15.0 100 02/10/20 07:47 107 02/10/20 06:57 96 Non-Rebreather 15.0 100 02/10/20 06:57 97 20 96 Non-Rebreather 15.0 100 02/10/20 04:00 15.0 100 02/10/20 04:00 Non-Rebreather 15.0 02/10/20 04:00 89 02/10/20 04:00 98.8 82 20 117/86 (96) 93 02/10/20 00:00 15.0 100 02/10/20 00:00 99.0 83 28 132/84 (100) 92 02/10/20 00:00 Non-Rebreather 15.0 02/10/20 00:00 81 02/09/20 20:18 83 02/09/20 20:10 98.7 69 26 132/69 96 Non-Rebreather 15.0 02/09/20 20:03 Non-Rebreather 15.0 02/09/20 18:28 98.9 74 30 128/77 98 Non-Rebreather 15.0 Intake and Output 02/09/20 02/10/20 19:00 07:00 Intake Total 480 ml Output Total 620 ml Balance -140 ml Intake Oral 480 ml Output Urine Total 620 ml # Voids 1 3 # Bowel Movements 2 Laboratory Tests Test 02/09/20 21:06 02/10/20 03:55 02/10/20 05:57 02/10/20 11:04 POC Whole Blood Glucose 243 MG/DL (74-106) H 213 MG/DL (74-106) H Pending White Blood Count 8.3 K/UL (4.8-10.8) Red Blood Count 4.86 M/UL (4.70-6.10) Hemoglobin 14.5 G/DL (14.2-18.0) Hematocrit 42.6 % (42.0-52.0) Mean Corpuscular Volume 88 FL (80-99) Mean Corpuscular Hemoglobin 29.8 PG (27.0-31.0) Mean Corpuscular Hemoglobin Concent 34.0 G/DL (32.0-36.0) Red Cell Distribution Width 12.2 % (11.6-14.8) Platelet Count 325 K/UL (150-450) Mean Platelet Volume 5.7 FL (6.5-10.1) L Neutrophils (%) (Auto) % (45.0-75.0) Lymphocytes (%) (Auto) % (20.0-45.0) Monocytes (%) (Auto) % (1.0-10.0) Eosinophils (%) (Auto) % (0.0-3.0) Basophils (%) (Auto) % (0.0-2.0) Differential Total Cells Counted 100 Neutrophils % (Manual) 90 % (45-75) H Lymphocytes % (Manual) 6 % (20-45) L Monocytes % (Manual) 4 % (1-10) Eosinophils % (Manual) 0 % (0-3) Basophils % (Manual) 0 % (0-2) Band Neutrophils 0 % (0-8) Platelet Estimate Adequate Platelet Morphology Normal Red Blood Cell Morphology Normal Sodium Level 137 MMOL/L (136-145) Potassium Level 3.6 MMOL/L (3.5-5.1) Chloride Level 103 MMOL/L (98-107) Carbon Dioxide Level 23 MMOL/L (21-32) Anion Gap 11 mmol/L (5-15) Blood Urea Nitrogen 15 mg/dL (7-18) Creatinine 0.7 MG/DL (0.55-1.30) Estimat Glomerular Filtration Rate > 60 mL/min (>60) Glucose Level 229 MG/DL (74-106) H Hemoglobin A1c 8.4 % (4.3-6.0) H Calcium Level 9.3 MG/DL (8.5-10.1) Phosphorus Level 3.6 MG/DL (2.5-4.9) Magnesium Level 1.9 MG/DL (1.8-2.4) Total Bilirubin 0.4 MG/DL (0.2-1.0) Direct Bilirubin 0.2 MG/DL (0.0-0.3) Aspartate Amino Transf (AST/SGOT) 43 U/L (15-37) H Alanine Aminotransferase (ALT/SGPT) 52 U/L (12-78) Alkaline Phosphatase 58 U/L (46-116) Troponin I 0.000 ng/mL (0.000-0.056) Pro-B-Type Natriuretic Peptide 50 pg/mL (0-125) Total Protein 7.5 G/DL (6.4-8.2) Albumin 2.4 G/DL (3.4-5.0) L Globulin 5.1 g/dL Albumin/Globulin Ratio 0.5 (1.0-2.7) L Triglycerides Level 148 MG/DL (30-150) Cholesterol Level 189 MG/DL (< 200) LDL Cholesterol 117 mg/dL (<100) H HDL Cholesterol 47 MG/DL (40-60) Cholesterol/HDL Ratio 4.0 (3.3-4.4) Thyroid Stimulating Hormone (TSH) 0.476 uiU/mL (0.358-3.740) Free Thyroxine 1.33 NG/DL (0.76-1.46) Test 02/10/20 13:50 02/10/20 16:07 Arterial Blood pH 7.430 (7.350-7.450) Arterial Blood Partial Pressure CO2 32.2 mmHg (35.0-45.0) L Arterial Blood Partial Pressure O2 Pending Arterial Blood HCO3 20.9 mmol/L (22.0-26.0) L Arterial Blood Oxygen Saturation 95.7 % (95-100) Arterial Blood Base Excess -2.4 (-2-2) L William Test Positive POC Whole Blood Glucose 308 MG/DL (74-106) H Microbiology Date/Time Source Procedure Growth Status 02/09/20 14:10 Nasopharynx SARS-CoV-2 RdRp Gene Assay - Final Complete Objective HEAD AND NECK: no JVD.VM is on LUNGS: Coarse rhonchi. CARDIOVASCULAR: regular S1 and S2 and tachycardic. ABDOMEN: Soft. EXTREMITIES: No pitting edema. Kiko Rubalcava MD Feb 10, 2020 17:46
--- NOTE | 2020-02-10 18:14 | General Progress Note ---
Subjective Date patient seen: Feb 10, 2020 Allergies: Coded Allergies: No Known Allergies (Unverified , 02/09/20) Subjective No acute events overnight per nursing. Patient continues to be on nonrebreather 80% FiO2 saturating in the low 90s. Feels better overall. No further fevers. No other complaints. No pain. Review of systems: Constitutional: Denies: chills, diaphoresis, fever, malaise, weakness, HEENT: Denies: eye pain, blurred vision, double vision, ear pain, nose pain, throat pain, Cardiovascular: Denies: chest pain, edema, lightheadedness, palpitations Respiratory: + Dyspnea and cough Gastrointestinal/Abdominal: Denies: abdominal pain, black stools, blood in stool, constipation, diarrhea, nausea, poor fluid intake vomiting, other Genitourinary: Denies: burning, discharge, frequency, Neurologic/Psychiatric: Denies: headache, numbness, paresthesia, new weakness, other Endocrine: Denies: excessive sweating, flushing, intolerance to cold, MSK: denies joint pains, swelling, stiffness Hematologic/Lymphatic: Denies: anemia, easy bleeding, easy bruising, Psych: no anxiety, depression, SI or HI Objective Last 24 Hour Vital Signs Date Time Temp Pulse Resp B/P (MAP) Pulse Ox O2 Delivery O2 Flow Rate FiO2 02/10/20 16:00 15.0 100 02/10/20 16:00 Non-Rebreather 15.0 02/10/20 16:00 93 02/10/20 16:00 98.2 98 22 137/83 (101) 93 02/10/20 12:01 97 02/10/20 12:00 Non-Rebreather 15.0 02/10/20 12:00 15.0 100 02/10/20 12:00 97.3 88 20 132/88 (103) 96 02/10/20 08:00 Non-Rebreather 15.0 02/10/20 08:00 98.1 100 20 133/79 (97) 93 02/10/20 08:00 15.0 100 02/10/20 07:47 107 02/10/20 06:57 96 Non-Rebreather 15.0 100 02/10/20 06:57 97 20 96 Non-Rebreather 15.0 100 02/10/20 04:00 15.0 100 02/10/20 04:00 Non-Rebreather 15.0 02/10/20 04:00 89 02/10/20 04:00 98.8 82 20 117/86 (96) 93 02/10/20 00:00 15.0 100 02/10/20 00:00 99.0 83 28 132/84 (100) 92 02/10/20 00:00 Non-Rebreather 15.0 02/10/20 00:00 81 02/09/20 20:18 83 02/09/20 20:10 98.7 69 26 132/69 96 Non-Rebreather 15.0 02/09/20 20:03 Non-Rebreather 15.0 02/09/20 18:28 98.9 74 30 128/77 98 Non-Rebreather 15.0 Intake and Output 02/09/20 02/10/20 19:00 07:00 Intake Total 480 ml Output Total 620 ml Balance -140 ml Intake Oral 480 ml Output Urine Total 620 ml # Voids 1 3 # Bowel Movements 2 Laboratory Tests 02/09/20 21:06: POC Whole Blood Glucose 243H 02/10/20 03:55: White Blood Count 8.3, Red Blood Count 4.86, Hemoglobin 14.5, Hematocrit 42.6, Mean Corpuscular Volume 88, Mean Corpuscular Hemoglobin 29.8, Mean Corpuscular Hemoglobin Concent 34.0, Red Cell Distribution Width 12.2, Platelet Count 325, Mean Platelet Volume 5.7L, Neutrophils (%) (Auto) , Lymphocytes (%) (Auto) , Monocytes (%) (Auto) , Eosinophils (%) (Auto) , Basophils (%) (Auto) , Differential Total Cells Counted 100, Neutrophils % (Manual) 90H, Lymphocytes % (Manual) 6L, Monocytes % (Manual) 4, Eosinophils % (Manual) 0, Basophils % (Manual) 0, Band Neutrophils 0, Platelet Estimate Adequate, Platelet Morphology Normal, Red Blood Cell Morphology Normal, Sodium Level 137, Potassium Level 3.6, Chloride Level 103, Carbon Dioxide Level 23, Anion Gap 11, Blood Urea Nitrogen 15, Creatinine 0.7, Estimat Glomerular Filtration Rate > 60, Glucose Level 229H, Hemoglobin A1c 8.4H, Calcium Level 9.3, Phosphorus Level 3.6, Magnesium Level 1.9, Total Bilirubin 0.4, Direct Bilirubin 0.2, Aspartate Amino Transf (AST/SGOT) 43H, Alanine Aminotransferase (ALT/SGPT) 52, Alkaline Phosphatase 58, Troponin I 0.000, Pro-B-Type Natriuretic Peptide 50, Total Protein 7.5, Albumin 2.4L, Globulin 5.1, Albumin/Globulin Ratio 0.5L, Triglycerides Level 148, Cholesterol Level 189, LDL Cholesterol 117H, HDL Cholesterol 47, Cholesterol/HDL Ratio 4.0, Thyroid Stimulating Hormone (TSH) 0.476, Free Thyroxine 1.33 02/10/20 05:57: POC Whole Blood Glucose 213H 02/10/20 11:04: POC Whole Blood Glucose [Pending] 02/10/20 13:50: Arterial Blood pH 7.430, Arterial Blood Partial Pressure CO2 32.2L, Arterial Blood Partial Pressure O2 [Pending], Arterial Blood HCO3 20.9L, Arterial Blood Oxygen Saturation 95.7, Arterial Blood Base Excess -2.4L, William Test Positive 02/10/20 16:07: POC Whole Blood Glucose 308H Height (Feet): 5 Height (Inches): 8.00 Weight (Pounds): 195 Objective General: WDWN male in mild distress A&O x 4 HEENT: Normocephalic cephalic atraumatic, pupils equal round reactive to light and accommodation, nares patent and no symmetrical, no tonsillar exudates, mucous membranes moist CV: Regular rate regular rhythm, no murmurs, rubs, or gallops Pulm: Lungs clear to auscultation bilaterally. No wheezes, rhonchi, or rales + tachypnea GI: Soft, nontender, nondistended, bowel sounds present Neuro: CN 2-12 intact bilaterally, no focal signs. Ext: No lower extremity edema bilaterally Skin: no rashes lesions or ulcers Msk: Joints symmetrical in upper extremity and lower extremity bilaterally, no joint swelling. Lymph: No lymphadenopathy in upper extremity and lower extremity Assessment/Plan Assessment/Plan: #Acute hypoxic respiratory failure secondary to Covid pneumonia #?CAP #Covid pneumonia #Dyspnea #Sinus tachycardia due to COVID pna #chest pain, resolved. Likely related to COVID. Appreciate cards input #Fever due to above #asthma, does not appear to be in exacerbation > onset of symptoms around 11/19 > Admission labs: dimer 0.73, trop neg, lactate 1.7, CRP 31 > CXR with bilateral infiltrates -Admit to SDU -ABG PRN -Wean to keep sats >92% -Appreciate pulmonary consult: Dr. Malagon -Appreciate ID consult: Dr. Thompson -Appreciate Cardiology consult: Dr. Rubalcava -Trend inflammatory markers -Follow blood cultures -Keep on dry side -Remdesivir per ID (1/2 - ) -Decadron 6mg Daily (1/2 - ) -Rocephin 1gm daily (1/2 - ) -Doxycyline 100mg Q12hr (1/2 - ) -Albuterol Q6hr -tte #Diabetes mellitus type 2 Accu-Cheks before meals and at bedtime Diabetic diet SSI Hypoglycemia protocol FENPPX DVTPPX:Lovenox GI PPX: protonix Fluids: PRN Diet: diabetic Lines: peripheral PT/OT: pending Code status: Full Dispo: Home vs. rehab Reason for Continued Hospitalization: hypoxia MIPS ([employer]-based Incentive Payment System) Applicable CPT: 48842, 81615 CHECK ALL THAT ARE MET: [] Measure #5 (CHF): All ages. Prescribe ROYA/ARB upon discharge for patients with left ventricular systolic dysfunction. If not, the reason is clearly documented in the medical chart [] Measure #8 (CHF): All ages. Prescribe a beta yudy upon discharge for patients with left ventricular systolic dysfunction. If not, the reason is clearly documented in the medical chart. [x] Measure #47: Advance care plan or surrogate decision maker documented in the medical record. [x] Measure #130 The provider has documented, updated, or reviewed the patients current medication list and has documented it in the patients note. [x] Measure #374 (All): Send report to referring provider. [] Measure #407(Sepsis due to MSSA bacteremia): Age 18+ Patient treated with a beta-lactam antibiotic (Nafcillin, Oxacillin or Cefazolin) as definitive therapy. MEDICAL COMPLEXITYHigh complexity medical decision making (need 2/3 categorie s)Problem - need 4 points [x]Acute/new problem with new plan for workup (4 points, 1 max) [] Acute/new problem without additional workup (3 points, 1 max) [x] Unstable chronic problem actively being managed (2 point each, 2 max) [x] Stable chronic problem actively being managed (1 point each, 2 max) [] Self-limited/transient process (constipation, muscle ache, etc) (1 point each, 2 max) Data - need 4 points [x] Reviewed labs/imaging studies (1 points, 2 max) [x] Independent review of imaging (EKG, xrays, etc) (2 points, 2 max) [x] Discussed case with consult/other MD/RN (2 points, 2 max) High Risk - qualify if have one of the following: [x] Severe exacerbation of acute problem, acute mental status change, IV narcotics, monitoring drug levels (vancomycin, INR, tacrolimus etc) I spent 40 minutes on this patient's case, and 20 mins was dedicated to counseling and/or care coordination. Discussed with ID, cardiology, pulmonology, RN Time of note may not reflect time of encounter Salvatore Alexandra D.O. Feb 10, 2020 18:14
--- NOTE | 2020-02-10 19:00 | NUR ---
NURSE NOTES: Received report from SHARIF Gutierrez. Pt is seen lying in bed in high chaudhari's position, Pt is alert x 4, able to follow commands and verbally responsive. pt has RAC g18 and Left wrist g22 patent and intact. Pt is voiding and bedside commode near the pt bed. pt able to tolerate diet per AM nurse, not in respiratory distress o2 sat- 95%. VS WNL, no fever noted. No pain noted. Call light within reach. Bed in lowest position, instructed to call the nurse if needed something. Bed in locked continue to plan of care.
--- NOTE | 2020-02-10 19:06 | NUR ---
NURSE HAND-OFF REPORT: Important Events on Shift: Patient Status: Diet: Pending Orders: Pending Results/Labs: Pending MD notification: Latest Vital Signs: Temperature 98.2 , Pulse 98 , B/P 137 /83 , Respiratory Rate 22 , O2 SAT 93 , Non-Rebreather, O2 Flow Rate 15.0 . Vital Sign Comment: EKG Rhythm: Sinus Rhythm Rhythm change?: N MD Notified?: Jw Oneil MD Response: No New Orders Received Latest [place] Fall Score: 35 Fall Risk: Medium Risk Safety Measures: Call light Within Reach, Bed Alarm Zone 1, Side Rails Side Rails x2, Bed position Low and Locked. Fall Precautions: Yellow Socks Patient Fall Education Report given to . Pt is awake and stable, no stress noted, endorsed plan of care, endorsed to monitor spo2.
[2020-02-10 20:00] VITALS: BP 115/70
[2020-02-10] MEDS: Maintenance Dose:Remdesivir 100mg/NS 230ml x 4 Doses IV SCH ×2 (20:37)
--- NOTE | 2020-02-10 23:03 | Infectious Diseases Prog Note ---
Assessment/Plan Assessment/Plan A) 1) covid-19 virus infection, ? CAP 2) hypoxia 3) fevers 4) DM P) 1) dexamethasone and remdesivir 2) ceftriaxone and doxycycline 3) monitor hypoxia, monitor labs, chest x-ray 4) will f/u 5) thanks Subjective Allergies: Coded Allergies: No Known Allergies (Unverified , 02/09/20) Objective Last 24 Hour Vital Signs Date Time Temp Pulse Resp B/P (MAP) Pulse Ox O2 Delivery O2 Flow Rate FiO2 02/10/20 20:00 15.0 100 02/10/20 20:00 98.2 89 21 115/70 (85) 95 02/10/20 20:00 98 02/10/20 20:00 Non-Rebreather 15.0 02/10/20 19:47 92 20 93 Non-Rebreather 15.0 100 02/10/20 19:47 93 Non-Rebreather 15.0 100 02/10/20 16:00 15.0 100 02/10/20 16:00 Non-Rebreather 15.0 02/10/20 16:00 93 02/10/20 16:00 98.2 98 22 137/83 (101) 93 02/10/20 12:01 97 02/10/20 12:00 Non-Rebreather 15.0 02/10/20 12:00 15.0 100 02/10/20 12:00 97.3 88 20 132/88 (103) 96 02/10/20 08:00 Non-Rebreather 15.0 02/10/20 08:00 98.1 100 20 133/79 (97) 93 02/10/20 08:00 15.0 100 02/10/20 07:47 107 02/10/20 06:57 96 Non-Rebreather 15.0 100 02/10/20 06:57 97 20 96 Non-Rebreather 15.0 100 02/10/20 04:00 15.0 100 02/10/20 04:00 Non-Rebreather 15.0 02/10/20 04:00 89 02/10/20 04:00 98.8 82 20 117/86 (96) 93 02/10/20 00:00 15.0 100 02/10/20 00:00 99.0 83 28 132/84 (100) 92 02/10/20 00:00 Non-Rebreather 15.0 02/10/20 00:00 81 Height (Feet): 5 Height (Inches): 8.00 Weight (Pounds): 195 Microbiology Date/Time Source Procedure Growth Status 02/09/20 14:10 Nasopharynx SARS-CoV-2 RdRp Gene Assay - Final Complete Laboratory Tests Test 02/10/20 03:55 02/10/20 05:57 02/10/20 11:04 02/10/20 13:50 White Blood Count 8.3 K/UL (4.8-10.8) Red Blood Count 4.86 M/UL (4.70-6.10) Hemoglobin 14.5 G/DL (14.2-18.0) Hematocrit 42.6 % (42.0-52.0) Mean Corpuscular Volume 88 FL (80-99) Mean Corpuscular Hemoglobin 29.8 PG (27.0-31.0) Mean Corpuscular Hemoglobin Concent 34.0 G/DL (32.0-36.0) Red Cell Distribution Width 12.2 % (11.6-14.8) Platelet Count 325 K/UL (150-450) Mean Platelet Volume 5.7 FL (6.5-10.1) L Neutrophils (%) (Auto) % (45.0-75.0) Lymphocytes (%) (Auto) % (20.0-45.0) Monocytes (%) (Auto) % (1.0-10.0) Eosinophils (%) (Auto) % (0.0-3.0) Basophils (%) (Auto) % (0.0-2.0) Differential Total Cells Counted 100 Neutrophils % (Manual) 90 % (45-75) H Lymphocytes % (Manual) 6 % (20-45) L Monocytes % (Manual) 4 % (1-10) Eosinophils % (Manual) 0 % (0-3) Basophils % (Manual) 0 % (0-2) Band Neutrophils 0 % (0-8) Platelet Estimate Adequate Platelet Morphology Normal Red Blood Cell Morphology Normal Sodium Level 137 MMOL/L (136-145) Potassium Level 3.6 MMOL/L (3.5-5.1) Chloride Level 103 MMOL/L (98-107) Carbon Dioxide Level 23 MMOL/L (21-32) Anion Gap 11 mmol/L (5-15) Blood Urea Nitrogen 15 mg/dL (7-18) Creatinine 0.7 MG/DL (0.55-1.30) Estimat Glomerular Filtration Rate > 60 mL/min (>60) Glucose Level 229 MG/DL (74-106) H Hemoglobin A1c 8.4 % (4.3-6.0) H Calcium Level 9.3 MG/DL (8.5-10.1) Phosphorus Level 3.6 MG/DL (2.5-4.9) Magnesium Level 1.9 MG/DL (1.8-2.4) Total Bilirubin 0.4 MG/DL (0.2-1.0) Direct Bilirubin 0.2 MG/DL (0.0-0.3) Aspartate Amino Transf (AST/SGOT) 43 U/L (15-37) H Alanine Aminotransferase (ALT/SGPT) 52 U/L (12-78) Alkaline Phosphatase 58 U/L (46-116) Troponin I 0.000 ng/mL (0.000-0.056) Pro-B-Type Natriuretic Peptide 50 pg/mL (0-125) Total Protein 7.5 G/DL (6.4-8.2) Albumin 2.4 G/DL (3.4-5.0) L Globulin 5.1 g/dL Albumin/Globulin Ratio 0.5 (1.0-2.7) L Triglycerides Level 148 MG/DL (30-150) Cholesterol Level 189 MG/DL (< 200) LDL Cholesterol 117 mg/dL (<100) H HDL Cholesterol 47 MG/DL (40-60) Cholesterol/HDL Ratio 4.0 (3.3-4.4) Thyroid Stimulating Hormone (TSH) 0.476 uiU/mL (0.358-3.740) Free Thyroxine 1.33 NG/DL (0.76-1.46) POC Whole Blood Glucose 213 MG/DL (74-106) H Pending Arterial Blood pH 7.430 (7.350-7.450) Arterial Blood Partial Pressure CO2 32.2 mmHg (35.0-45.0) L Arterial Blood Partial Pressure O2 Pending Arterial Blood HCO3 20.9 mmol/L (22.0-26.0) L Arterial Blood Oxygen Saturation 95.7 % (95-100) Arterial Blood Base Excess -2.4 (-2-2) L William Test Positive Test 02/10/20 16:07 POC Whole Blood Glucose 308 MG/DL (74-106) H Current Medications Medications (Trade) Dose Ordered Sig/Deepa Route PRN Reason Start Time Stop Time Status Last Admin Dose Admin Acetaminophen (Tylenol) 500 mg Q6H PRN ORAL Mild Pain (Pain Scale 1-3) 02/09/20 19:30 03/10/20 19:29 Acetaminophen (Tylenol) 500 mg Q6H PRN ORAL Temp >100.5 02/09/20 19:45 03/10/20 19:44 Albuterol/ Ipratropium (Combivent Respimat) 1 puff Q6HRT INH 02/10/20 20:00 03/11/20 19:59 Bisacodyl (Dulcolax) 10 mg DAILYPRN PRN RECTAL Constipation 02/09/20 19:30 05/09/20 19:29 Ceftriaxone Sodium 1 gm/ Dextrose 55 ml @ 110 mls/hr Q24H IVPB 02/10/20 14:00 02/17/20 13:59 02/10/20 13:12 Dexamethasone Sodium Phosphate (Decadron 10mg/ ml Inj) 6 mg DAILY IV 02/10/20 09:00 02/19/20 09:01 02/10/20 08:53 Dextrose (Dextrose 50%) 25 ml Q30M PRN IV Hypoglycemia 02/09/20 19:30 05/09/20 19:29 Dextrose (Dextrose 50%) 50 ml Q30M PRN IV Hypoglycemia 02/09/20 19:30 05/09/20 19:29 Diphenhydramine HCl (Benadryl) 25 mg Q6H PRN ORAL Itching/Pruritis 02/09/20 19:30 03/10/20 19:29 Docusate Sodium (Colace) 100 mg EVERY 12 HOURS ORAL 02/09/20 21:00 03/10/20 20:59 02/10/20 08:53 Doxycycline Monohydrate (Doxycycline Monohydrate) 100 mg EVERY 12 HOURS ORAL 02/09/20 21:00 02/16/20 20:59 02/10/20 20:39 Enoxaparin Sodium (Lovenox) 40 mg Q24H SUBQ 02/10/20 15:00 05/10/20 14:59 02/10/20 16:01 Guaifenesin/ Dextromethorphan (Robitussin DM Syrup) 10 ml Q4H PRN ORAL For Cough 02/10/20 12:00 05/10/20 11:59 02/10/20 17:32 Hydralazine HCl (Apresoline) 10 mg Q4H PRN IV htn 02/09/20 20:30 05/09/20 20:29 Insulin Aspart (NovoLOG) BEFORE MEALS AND HS SUBQ 02/09/20 21:00 05/09/20 20:59 02/10/20 21:13 Magnesium Hydroxide (Mom) 30 ml HSPRN PRN ORAL Constipation 02/09/20 19:30 03/10/20 19:29 Ondansetron HCl (Zofran) 4 mg Q6H PRN IVP Nausea & Vomiting 02/09/20 19:30 03/10/20 19:29 Oxycodone HCl (Roxicodone) 5 mg Q6H PRN ORAL pain 4-10 02/09/20 19:30 02/16/20 19:29 Pantoprazole (Protonix) 40 mg DAILY ORAL 02/10/20 09:00 03/11/20 08:59 02/10/20 08:53 Polyethylene Glycol (Miralax) 17 gm DAILYPRN PRN ORAL Constipation 02/09/20 19:30 03/10/20 19:29 Prochlorperazine (Compazine) 10 mg Q6H PRN IVP Nausea & Vomiting 02/09/20 19:30 03/10/20 19:29 Remdesivir 100 mg/ Sodium Chloride 250 ml @ 250 mls/hr Q24H IV 02/10/20 21:00 02/13/20 21:59 02/10/20 20:37 Sonia Jade MD Feb 10, 2020 23:03
--- NOTE | 2020-02-10 23:41 | NUR ---
NURSE NOTES: Pt is sleeping o2 sat- 92%, no respiratory distress noted. pt is sleeping comfortably in semi- chaudhari's position.
[2020-02-11] VITALS: BP 135/81
--- NOTE | 2020-02-11 01:29 | Consultation ---
DATE OF CONSULTATION: 02/10/2020 INFECTIOUS DISEASE CONSULTATION CONSULTING PHYSICIAN: Sonia Jade MD. ATTENDING PHYSICIAN: Christiano Champion MD. REFERRING PHYSICIAN: Salvatore Alexandra DO. REASON FOR CONSULTATION: COVID-19 infection, pneumonia, hypoxia, fevers. CHIEF COMPLAINT: The patient's chief complaint coming in the hospital is COVID pneumonia and shortness of breath, hypoxia requiring BiPAP. HISTORY OF PRESENT ILLNESS: A very pleasant 49-year-old male who comes into [facility] with hypoxia. The patient requires BiPAP. The patient has pneumonia. COVID testing is positive. The patient currently is on remdesivir, dexamethasone, Rocephin, and doxycycline. Infectious Disease consultation is requested. REVIEW OF SYSTEMS: CONSTITUTIONAL: The patient came in with fevers and hypoxia. No chills. HEENT: No dysphagia, thrush, headache, or neck stiffness. CARDIAC: No chest pain. PULMONARY: Short of breath. GASTROINTESTINAL: No nausea, vomiting, or diarrhea. GENITOURINARY: No dysuria or frequency. SKIN: No rash. NEUROLOGICAL: No seizures. PAST MEDICAL HISTORY: The patient has history of diabetes type 2. No hypertension. ALLERGIES: No known drug allergies. SOCIAL HISTORY: Negative for smoking, alcohol, or drug abuse. FAMILY HISTORY: Noncontributory. MEDICATIONS: Upon reviewing the MAR, he is on following medications, on remdesivir, dexamethasone, albuterol, enoxaparin, Rocephin, doxycycline, docusate, oxycodone and acetaminophen, hydralazine p.r.n., Zofran, magnesium hydroxide, and insulin. Outside medications noted and reconciliated. PHYSICAL EXAMINATION: VITAL SIGNS: Temperature 98.2, pulse rate 98, respiratory rate 21, saturation 95% FiO2 15 liters non-rebreather and BiPAP, blood pressure 115/70. T-max 100.8. GENERAL: Alert and responsive, in no distress. He is on BiPAP in a COVID isolation and short of breath. HEAD AND NECK: Oral exam, no thrush. Eye exam, no icterus. Normocephalic. Neck is supple. No JVD. HEART: Regular. No gallop or murmur. No friction rub. LUNGS: Bilateral rhonchi and rales. ABDOMEN: Soft, positive bowel sounds. Nontender. SKIN: No rashes. MUSCULOSKELETAL: No effusions. Legs are without cellulitis. PERIPHERAL VASCULAR: No cyanosis or gangrene. : No Patel. LINE SITES: Without phlebitis. NEUROLOGIC: Intact. Nonfocal. Alert and oriented. LABORATORY DATA: White count is 8.3, hemoglobin 14.5. Glucose is 308. Creatinine 0.7. LFTs noted. COVID nasopharyngeal molecular testing was positive. IMAGING: Chest x-ray shows bilateral airspace disease consistent with pneumonia, possible viral pneumonia is noted and reviewed. ASSESSMENT AND PLAN: 1. The patient has COVID-19 infection with pneumonia, rule out community-acquired pneumonia. The patient is hypoxic BiPAP requiring and fevers. At this time, we will continue dexamethasone and remdesivir for COVID-19 infection with pneumonia and hypoxia. Also, we will continue Rocephin and doxycycline for community-acquired pneumonia. Continue supportive respiratory treatment including BiPAP. Monitor the patient clinically. Monitor hypoxia, laboratories, and chest x-ray. Continue COVID isolation. 2. Diabetes. 3. No history of hypertension. 4. Blood sugar treatment per primary medical team. 5. Continue treatment per primary consultants. 6. No known drug allergies. 7. Social history is negative. 8. Family history is noncontributory. 9. MAR is noted. 10. Case was discussed with RN. Sonia Jade M.D. DR: GEGE JOB#: [id number] CC:
[2020-02-11 04:00] VITALS: BP 137/79
--- NOTE | 2020-02-11 04:56 | NUR ---
NURSE NOTES: Changed pt, no bm noted. O2 sat 92% upon changing pt. Not in distress. Continue to monitor pt closely.
[2020-02-11] MEDS: guaiFENesin /DM 10ml syrup ORAL PRN (05:30)
[2020-02-11] MEDS: NovoLOG Insulin Flexpen SUBQ SCH ×4 (05:56→21:09)
--- NOTE | 2020-02-11 06:13 | NUR ---
NURSE NOTES: Pt sleeping o2 sat- 95%.
[2020-02-11 07:01] LABS: BASOPHILS % (AUTO) 0.1 % (0.0-2.0); HEMATOCRIT 42.6 % (42.0-52.0); HEMOGLOBIN 14.1 G/DL (14.2-18.0); MEAN CORPUSCULAR VOLUME 90 FL (80-99); NEUTROPHILS % (AUTO) 81.9 % (45.0-75.0); PLATELET COUNT 336 K/UL (150-450); RED BLOOD COUNT 4.74 M/UL (4.70-6.10); RED CELL DISTRIBUTION WIDTH 11.5 % (11.6-14.8); WHITE BLOOD COUNT 7.8 K/UL (4.8-10.8)
--- NOTE | 2020-02-11 07:10 | NUR ---
NURSE HAND-OFF REPORT: Important Events on Shift: pt is stable, persistent cough, on NRB @15- 02 sat- 95% Patient Status: Guarding Diet: Consistent carb Pending Orders: none Pending Results/Labs: none Pending MD notification: none Latest Vital Signs: Temperature 99.1 , Pulse 77 , B/P 137 /79 , Respiratory Rate 22 , O2 SAT 92 , Non-Rebreather, O2 Flow Rate 15.0 . Vital Sign Comment: WNL, 99.1- cooling measure provided EKG Rhythm: Sinus Rhythm Rhythm change?: N MD Notified?: Y -Dr Clarice BLOOM Response: No New Orders Received Latest [place] Fall Score: 45 Fall Risk: High Risk Safety Measures: Call light Within Reach, Bed Alarm Zone 1, Side Rails Side Rails x2, Bed position Low and Locked. Fall Precautions: Yellow Socks Patient Fall Education Report given to [SHARIF Mac].
[2020-02-11 07:52] LABS: PHOSPHORUS 3.2 MG/DL (2.5-4.9)
[2020-02-11 07:56] LABS: ALANINE AMINOTRANSFERASE 64 U/L (12-78); ALBUMIN 2.5 G/DL (3.4-5.0); ALBUMIN/GLOBULIN RATIO 0.6 (1.0-2.7); ALKALINE PHOSPHATASE 64 U/L (46-116); ANION GAP 9 mmol/L (5-15); ASPARTATE AMINO TRANSFERASE 29 U/L (15-37); BILIRUBIN,DIRECT 0.1 MG/DL (0.0-0.3); BILIRUBIN,TOTAL 0.4 MG/DL (0.2-1.0); BLOOD UREA NITROGEN 20 mg/dL (7-18); CALCIUM 8.6 MG/DL (8.5-10.1); CARBON DIOXIDE 26 MMOL/L (21-32); CHLORIDE 105 MMOL/L (98-107); CREATININE 0.7 MG/DL (0.55-1.30); POTASSIUM 4.1 MMOL/L (3.5-5.1); SODIUM 140 MMOL/L (136-145)
[2020-02-11 08:00] VITALS: BP 127/67
--- NOTE | 2020-02-11 08:20 | NUR ---
NURSE NOTES: Received report from SHARIF Cornejo. Pt is awake and AOX4 and able to follow commands and verbally responsive. Iv sites are c/d/i. Pt is on non rebreather at 15L not in respiratory distress o2 sat- 95%. color television console monitor shows SR. Pt is voiding and bedside commode near the pt bed. VS WNL, no fever noted. No pain noted. Call light within reach. Bed in lowest position, instructed to call the nurse if needed something. Bed in locked continue to plan of care.
[2020-02-11] MEDS: Docusate 100mg cap ORAL SCH ×2 (08:39→21:07)
[2020-02-11] MEDS: dexAMETHasone 10mg/ml Inj IV SCH (08:39)
[2020-02-11] MEDS: Doxycycline Monohydrate 100mg ORAL SCH ×2 (08:39→20:51)
--- NOTE | 2020-02-11 09:58 | Pulmonology Progress Note ---
Subjective Allergies: Coded Allergies: No Known Allergies (Unverified , 02/09/20) Subjective on 100 % NRM, denies CP, reports dry intermittent persistent cough, + chest discomfort with cough and deep breathing started 02/08 on DEX and REM remains afebrile, no leukocytosis Objective Last 24 Hour Vital Signs Date Time Temp Pulse Resp B/P (MAP) Pulse Ox O2 Delivery O2 Flow Rate FiO2 02/11/20 08:00 15.0 100 02/11/20 08:00 98.1 95 21 127/67 (87) 94 02/11/20 08:00 Non-Rebreather 15.0 02/11/20 07:08 93 Non-Rebreather 15.0 100 02/11/20 07:08 82 18 93 Non-Rebreather 15.0 100 02/11/20 04:00 77 02/11/20 04:00 99.1 83 22 137/79 (98) 92 02/11/20 04:00 Non-Rebreather 15.0 02/11/20 04:00 15.0 100 02/11/20 00:00 15.0 100 02/11/20 00:00 78 02/11/20 00:00 Non-Rebreather 15.0 02/11/20 00:00 99.0 87 24 135/81 (99) 93 02/10/20 20:00 15.0 100 02/10/20 20:00 98.2 89 21 115/70 (85) 95 02/10/20 20:00 98 02/10/20 20:00 Non-Rebreather 15.0 02/10/20 19:47 92 20 93 Non-Rebreather 15.0 100 02/10/20 19:47 93 Non-Rebreather 15.0 100 02/10/20 16:00 15.0 100 02/10/20 16:00 Non-Rebreather 15.0 02/10/20 16:00 93 02/10/20 16:00 98.2 98 22 137/83 (101) 93 02/10/20 12:01 97 02/10/20 12:00 Non-Rebreather 15.0 02/10/20 12:00 15.0 100 02/10/20 12:00 97.3 88 20 132/88 (103) 96 Intake and Output 02/10/20 02/11/20 19:00 07:00 Intake Total 375 ml 650 ml Output Total 1700 ml 650 ml Balance -1325 ml 0 ml Intake Oral 320 ml 400 ml IV Total 55 ml 250 ml Output Urine Total 1700 ml 650 ml # Voids 5 # Bowel Movements 1 General Appearance: WD/WN - middle age Spanisg speaking male in mild resp distress , no acute distress HEENT: normocephalic, atraumatic, anicteric, mucous membranes moist, PERRL Respiratory: decreased breath sounds Cardiovascular: normal rate, regular rhythm Abdomen: normal bowel sounds, soft, non tender Extremities: no edema, pedal pulses normal Skin: no rash 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, no motor/sensory deficits, alert, oriented x 3, responsive Musculoskeletal: normal muscle bulk Microbiology Date/Time Source Procedure Growth Status 02/09/20 14:10 Nasopharynx SARS-CoV-2 RdRp Gene Assay - Final Complete 02/09/20 14:10 Blood Blood Culture - Preliminary NO GROWTH AFTER 24 HOURS Resulted 02/09/20 13:55 Blood Blood Culture - Preliminary NO GROWTH AFTER 24 HOURS Resulted Laboratory Tests 02/10/20 11:04: POC Whole Blood Glucose [Pending] 02/10/20 13:50: Arterial Blood pH 7.430, Arterial Blood Partial Pressure CO2 32.2L, Arterial Blood Partial Pressure O2 [Pending], Arterial Blood HCO3 20.9L, Arterial Blood Oxygen Saturation 95.7, Arterial Blood Base Excess -2.4L, William Test Positive 02/10/20 16:07: POC Whole Blood Glucose 308H 02/11/20 04:58: White Blood Count 7.8, Red Blood Count 4.74, Hemoglobin 14.1L, Hematocrit 42.6, Mean Corpuscular Volume 90, Mean Corpuscular Hemoglobin 29.7, Mean Corpuscular Hemoglobin Concent 33.0, Red Cell Distribution Width 11.5L, Platelet Count 336, Mean Platelet Volume 5.4L, Neutrophils (%) (Auto) 81.9H, Lymphocytes (%) (Auto) 13.0L, Monocytes (%) (Auto) 5.0, Eosinophils (%) (Auto) 0.0, Basophils (%) (Auto) 0.1, Sodium Level 140, Potassium Level 4.1, Chloride Level 105, Carbon Dioxide Level 26, Anion Gap 9, Blood Urea Nitrogen 20H, Creatinine 0.7, Estimat Glomerular Filtration Rate > 60, Glucose Level 257H, Calcium Level 8.6, Phos phorus Level 3.2, Magnesium Level 2.0, Total Bilirubin 0.4, Direct Bilirubin 0.1, Aspartate Amino Transf (AST/SGOT) 29, Alanine Aminotransferase (ALT/SGPT) 64, Alkaline Phosphatase 64, C-Reactive Protein, Quantitative [Pending], Total Protein 6.5, Albumin 2.5L, Globulin 4.0, Albumin/Globulin Ratio 0.6L Current Medications Medications (Trade) Dose Ordered Sig/Deepa Route PRN Reason Start Time Stop Time Status Last Admin Dose Admin Acetaminophen (Tylenol) 500 mg Q6H PRN ORAL Mild Pain (Pain Scale 1-3) 02/09/20 19:30 03/10/20 19:29 Acetaminophen (Tylenol) 500 mg Q6H PRN ORAL Temp >100.5 02/09/20 19:45 03/10/20 19:44 Albuterol/ Ipratropium (Combivent Respimat) 1 puff Q6HRT INH 02/10/20 20:00 03/11/20 19:59 02/11/20 07:00 Bisacodyl (Dulcolax) 10 mg DAILYPRN PRN RECTAL Constipation 02/09/20 19:30 05/09/20 19:29 Ceftriaxone Sodium 1 gm/ Dextrose 55 ml @ 110 mls/hr Q24H IVPB 02/10/20 14:00 02/17/20 13:59 02/10/20 13:12 Dexamethasone Sodium Phosphate (Decadron 10mg/ ml Inj) 6 mg DAILY IV 02/10/20 09:00 02/19/20 09:01 02/11/20 08:39 Dextrose (Dextrose 50%) 25 ml Q30M PRN IV Hypoglycemia 02/09/20 19:30 05/09/20 19:29 Dextrose (Dextrose 50%) 50 ml Q30M PRN IV Hypoglycemia 02/09/20 19:30 05/09/20 19:29 Diphenhydramine HCl (Benadryl) 25 mg Q6H PRN ORAL Itching/Pruritis 02/09/20 19:30 03/10/20 19:29 Docusate Sodium (Colace) 100 mg EVERY 12 HOURS ORAL 02/09/20 21:00 03/10/20 20:59 02/11/20 08:39 Doxycycline Monohydrate (Doxycycline Monohydrate) 100 mg EVERY 12 HOURS ORAL 02/09/20 21:00 02/16/20 20:59 02/11/20 08:39 Enoxaparin Sodium (Lovenox) 40 mg Q24H SUBQ 02/10/20 15:00 05/10/20 14:59 02/10/20 16:01 Guaifenesin/ Dextromethorphan (Robitussin DM Syrup) 10 ml Q4H PRN ORAL For Cough 02/10/20 12:00 05/10/20 11:59 02/11/20 05:30 Hydralazine HCl (Apresoline) 10 mg Q4H PRN IV htn 02/09/20 20:30 05/09/20 20:29 Insulin Aspart (NovoLOG) BEFORE MEALS AND HS SUBQ 02/09/20 21:00 05/09/20 20:59 02/11/20 05:56 Magnesium Hydroxide (Mom) 30 ml HSPRN PRN ORAL Constipation 02/09/20 19:30 03/10/20 19:29 Ondansetron HCl (Zofran) 4 mg Q6H PRN IVP Nausea & Vomiting 02/09/20 19:30 03/10/20 19:29 Oxycodone HCl (Roxicodone) 5 mg Q6H PRN ORAL pain 4-10 02/09/20 19:30 02/16/20 19:29 Pantoprazole (Protonix) 40 mg DAILY ORAL 02/10/20 09:00 03/11/20 08:59 02/11/20 08:39 Polyethylene Glycol (Miralax) 17 gm DAILYPRN PRN ORAL Constipation 02/09/20 19:30 03/10/20 19:29 Prochlorperazine (Compazine) 10 mg Q6H PRN IVP Nausea & Vomiting 02/09/20 19:30 03/10/20 19:29 Remdesivir 100 mg/ Sodium Chloride 250 ml @ 250 mls/hr Q24H IV 02/10/20 21:00 02/13/20 21:59 02/10/20 20:37 Assessment/Plan Assessment/Plan ASSESSMENT/PROBLEM LIST: * COVID 19 PNEUMONIA * ACUTE HYPOXEMIC RESPIRATORY FAILURE 2/2 ABOVE * B PULMONARY INFILTRATES 2/2 ABOVE * Asthma * DM * HTN * Obesity PLAN: * Day of positive test : 02/08 rapid COVID 19 + * O2- BiPAP FiO2 100%, titrate settings as tolerated * ABG noted , sat 93% * Optimize pulmonary hygiene/mobilize as tolerated * Titrate down FiO2 to keep SaO2 > 90% * encourage prone position as tolerated * Dex D3 ( 1/2 -) * Rem D3 ( 1/2 -) * COMBIVENT * Monitor inflammatory markers CRP 31.9-> * fup with CXR in am * Monitor volumes and renal function * DVT Px: LMWH * a/tussive prn * FC * f/up with consultants recs case discussed and evaluated by supervising physician Clarissa Loera NP Feb 11, 2020 09:58 Mikal Malagon MD Feb 11, 2020 22:01
--- NOTE | 2020-02-11 11:45 | NUR ---
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 CC: Shortness of Breath x 1 week. Spouse tested (+) for COVID-19. O2 sat 77% on RA SI: Respiratory Failure, COVID PNA T-100.8, HR 122, RR 31, BP 133/77 15L NRM, FiO2 100% O2 sat 98% Cxray Bilateral airspace infiltrates, question pna IS: Remdisivir IV Lovenox sq Rocephin IV Dexamethasone IV Apresoline IV admit to SDU SDU Status DCP: Pending hospitalization
[2020-02-11 12:00] VITALS: BP 124/74
[2020-02-11] MEDS: Levemir Flexpen SUBQ SCH (12:07)
[2020-02-11] MEDS ORDERED: BENAZEPRIL HCL10 MG ORAL (14:18)
[2020-02-11] MEDS ORDERED: BACTRIM DOUBLE S1 E1 ORAL (14:18)
[2020-02-11] MEDS ORDERED: ACETAMINOPHEN500 M3 ORAL (14:18)
[2020-02-11] MEDS ORDERED: METFORMIN HCL500 M1 ORAL (14:18)
[2020-02-11] MEDS: cefTRIAXone 1 GM in D5W 55 ML IVPB SCH (14:41)
[2020-02-11] MEDS: Enoxaparin 40mg Inj SUBQ SCH (14:42)
--- NOTE | 2020-02-11 15:32 | Cardiac Electrophysiology PN ---
Assessment/Plan Assessment/Plan 1. Tachycardia due to respiratory failure due to COVID-19. His EKG shows sinus rhythm with right bundle-branch block. EF 65% 2. COVID-19 pneumonia. On dexamethasone, ceftriaxone and non-rebreather face mask. 3. History of hypertension, on p.r.n. IV hydralazine. 4. Diabetes, on sliding scale insulin. Subjective Subjective On 15 liter VM and 100% Fio2. EF 65% in Sinus rhythm Objective Last 24 Hour Vital Signs Date Time Temp Pulse Resp B/P (MAP) Pulse Ox O2 Delivery O2 Flow Rate FiO2 02/11/20 12:00 73 02/11/20 12:00 15.0 100 02/11/20 12:00 98.4 73 21 124/74 (91) 95 02/11/20 12:00 Non-Rebreather 15.0 02/11/20 08:00 15.0 100 02/11/20 08:00 85 02/11/20 08:00 98.1 95 21 127/67 (87) 94 02/11/20 08:00 Non-Rebreather 15.0 02/11/20 07:08 93 Non-Rebreather 15.0 100 02/11/20 07:08 82 18 93 Non-Rebreather 15.0 100 02/11/20 04:00 77 02/11/20 04:00 99.1 83 22 137/79 (98) 92 02/11/20 04:00 Non-Rebreather 15.0 02/11/20 04:00 15.0 100 02/11/20 00:00 15.0 100 02/11/20 00:00 78 02/11/20 00:00 Non-Rebreather 15.0 02/11/20 00:00 99.0 87 24 135/81 (99) 93 02/10/20 20:00 15.0 100 02/10/20 20:00 98.2 89 21 115/70 (85) 95 02/10/20 20:00 98 02/10/20 20:00 Non-Rebreather 15.0 02/10/20 19:47 92 20 93 Non-Rebreather 15.0 100 02/10/20 19:47 93 Non-Rebreather 15.0 100 02/10/20 16:00 15.0 100 02/10/20 16:00 Non-Rebreather 15.0 02/10/20 16:00 93 02/10/20 16:00 98.2 98 22 137/83 (101) 93 Intake and Output 02/10/20 02/11/20 19:00 07:00 Intake Total 375 ml 650 ml Output Total 1700 ml 650 ml Balance -1325 ml 0 ml Intake Oral 320 ml 400 ml IV Total 55 ml 250 ml Output Urine Total 1700 ml 650 ml # Voids 5 # Bowel Movements 1 Laboratory Tests Test 02/10/20 16:07 02/11/20 04:58 02/11/20 10:17 02/11/20 11:52 POC Whole Blood Glucose 308 MG/DL (74-106) H 336 MG/DL (74-106) H White Blood Count 7.8 K/UL (4.8-10.8) Red Blood Count 4.74 M/UL (4.70-6.10) Hemoglobin 14.1 G/DL (14.2-18.0) L Hematocrit 42.6 % (42.0-52.0) Mean Corpuscular Volume 90 FL (80-99) Mean Corpuscular Hemoglobin 29.7 PG (27.0-31.0) Mean Corpuscular Hemoglobin Concent 33.0 G/DL (32.0-36.0) Red Cell Distribution Width 11.5 % (11.6-14.8) L Platelet Count 336 K/UL (150-450) Mean Platelet Volume 5.4 FL (6.5-10.1) L Neutrophils (%) (Auto) 81.9 % (45.0-75.0) H Lymphocytes (%) (Auto) 13.0 % (20.0-45.0) L Monocytes (%) (Auto) 5.0 % (1.0-10.0) Eosinophils (%) (Auto) 0.0 % (0.0-3.0) Basophils (%) (Auto) 0.1 % (0.0-2.0) Sodium Level 140 MMOL/L (136-145) Potassium Level 4.1 MMOL/L (3.5-5.1) Chloride Level 105 MMOL/L (98-107) Carbon Dioxide Level 26 MMOL/L (21-32) Anion Gap 9 mmol/L (5-15) Blood Urea Nitrogen 20 mg/dL (7-18) H Creatinine 0.7 MG/DL (0.55-1.30) Estimat Glomerular Filtration Rate > 60 mL/min (>60) Glucose Level 257 MG/DL (74-106) H Calcium Level 8.6 MG/DL (8.5-10.1) Phosphorus Level 3.2 MG/DL (2.5-4.9) Magnesium Level 2.0 MG/DL (1.8-2.4) Total Bilirubin 0.4 MG/DL (0.2-1.0) Direct Bilirubin 0.1 MG/DL (0.0-0.3) Aspartate Amino Transf (AST/SGOT) 29 U/L (15-37) Alanine Aminotransferase (ALT/SGPT) 64 U/L (12-78) Alkaline Phosphatase 64 U/L (46-116) C-Reactive Protein, Quantitative Pending Total Protein 6.5 G/DL (6.4-8.2) Albumin 2.5 G/DL (3.4-5.0) L Globulin 4.0 g/dL Albumin/Globulin Ratio 0.6 (1.0-2.7) L Arterial Blood pH 7.410 (7.350-7.450) Arterial Blood Partial Pressure CO2 40.0 mmHg (35.0-45.0) Arterial Blood Partial Pressure O2 mmHg (75.0-100.0) Arterial Blood HCO3 24.8 mmol/L (22.0-26.0) Arterial Blood Oxygen Saturation 93.0 % (95-100) L Arterial Blood Base Excess 0.2 (-2-2) William Test Positive Microbiology Date/Time Source Procedure Growth Status 02/09/20 14:10 Nasopharynx SARS-CoV-2 RdRp Gene Assay - Final Complete 02/09/20 14:10 Blood Blood Culture - Preliminary NO GROWTH AFTER 24 HOURS Resulted 02/09/20 13:55 Blood Blood Culture - Preliminary NO GROWTH AFTER 24 HOURS Resulted Objective HEAD AND NECK: no JVD.VM is on LUNGS: Coarse rhonchi. CARDIOVASCULAR: regular S1 and S2 and tachycardic. ABDOMEN: Soft. EXTREMITIES: No pitting edema. Kiko Rubalcava MD Feb 11, 2020 15:32
[2020-02-11 16:00] VITALS: BP 140/82
--- NOTE | 2020-02-11 16:00 | General Progress Note ---
Subjective Allergies: Coded Allergies: No Known Allergies (Unverified , 02/09/20) Subjective No acute events overnight per nursing. Patient continues to be on NRB. Saturating low 90s. Still SOB. Feeling better overall though. No further fevers. No other complaints. No pain. Review of systems: Constitutional: Denies: chills, diaphoresis, fever, malaise, weakness, HEENT: Denies: eye pain, blurred vision, double vision, ear pain, nose pain, t hroat pain, Cardiovascular: Denies: chest pain, edema, lightheadedness, palpitations Respiratory: + Dyspnea and cough Gastrointestinal/Abdominal: Denies: abdominal pain, black stools, blood in stool, constipation, diarrhea, nausea, poor fluid intake vomiting, other Genitourinary: Denies: burning, discharge, frequency, Neurologic/Psychiatric: Denies: headache, numbness, paresthesia, new weakness, other Endocrine: Denies: excessive sweating, flushing, intolerance to cold, MSK: denies joint pains, swelling, stiffness Hematologic/Lymphatic: Denies: anemia, easy bleeding, easy bruising, Psych: no anxiety, depression, SI or HI Objective Last 24 Hour Vital Signs Date Time Temp Pulse Resp B/P (MAP) Pulse Ox O2 Delivery O2 Flow Rate FiO2 02/11/20 12:00 73 02/11/20 12:00 15.0 100 02/11/20 12:00 98.4 73 21 124/74 (91) 95 02/11/20 12:00 Non-Rebreather 15.0 02/11/20 08:00 15.0 100 02/11/20 08:00 85 02/11/20 08:00 98.1 95 21 127/67 (87) 94 02/11/20 08:00 Non-Rebreather 15.0 02/11/20 07:08 93 Non-Rebreather 15.0 100 02/11/20 07:08 82 18 93 Non-Rebreather 15.0 100 02/11/20 04:00 77 02/11/20 04:00 99.1 83 22 137/79 (98) 92 02/11/20 04:00 Non-Rebreather 15.0 02/11/20 04:00 15.0 100 02/11/20 00:00 15.0 100 02/11/20 00:00 78 02/11/20 00:00 Non-Rebreather 15.0 02/11/20 00:00 99.0 87 24 135/81 (99) 93 02/10/20 20:00 15.0 100 02/10/20 20:00 98.2 89 21 115/70 (85) 95 02/10/20 20:00 98 02/10/20 20:00 Non-Rebreather 15.0 02/10/20 19:47 92 20 93 Non-Rebreather 15.0 100 02/10/20 19:47 93 Non-Rebreather 15.0 100 02/10/20 16:00 15.0 100 02/10/20 16:00 Non-Rebreather 15.0 02/10/20 16:00 93 02/10/20 16:00 98.2 98 22 137/83 (101) 93 Intake and Output 02/10/20 02/11/20 19:00 07:00 Intake Total 375 ml 650 ml Output Total 1700 ml 650 ml Balance -1325 ml 0 ml Intake Oral 320 ml 400 ml IV Total 55 ml 250 ml Output Urine Total 1700 ml 650 ml # Voids 5 # Bowel Movements 1 Laboratory Tests 02/10/20 16:07: POC Whole Blood Glucose 308H 02/11/20 04:58: White Blood Count 7.8, Red Blood Count 4.74, Hemoglobin 14.1L, Hematocrit 42.6, Mean Corpuscular Volume 90, Mean Corpuscular Hemoglobin 29.7, Mean Corpuscular Hemoglobin Concent 33.0, Red Cell Distribution Width 11.5L, Platelet Count 336, Mean Platelet Volume 5.4L, Neutrophils (%) (Auto) 81.9H, Lymphocytes (%) (Auto) 13.0L, Monocytes (%) (Auto) 5.0, Eosinophils (%) (Auto) 0.0, Basophils (%) (Auto) 0.1, Sodium Level 140, Potassium Level 4.1, Chloride Level 105, Carbon Dioxide Level 26, Anion Gap 9, Blood Urea Nitrogen 20H, Creatinine 0.7, Estimat Glomerular Filtration Rate > 60, Glucose Level 257H, Calcium Level 8.6, Phosphorus Level 3.2, Magnesium Level 2.0, Total Bilirubin 0.4, Direct Bilirubin 0.1, Aspartate Amino Transf (AST/SGOT) 29, Alanine Aminotransferase (ALT/SGPT) 64, Alkaline Phosphatase 64, C-Reactive Protein, Quantitative [Pending], Total Protein 6.5, Albumin 2.5L, Globulin 4.0, Albumin/Globulin Ratio 0.6L 02/11/20 10:17: Arterial Blood pH 7.410, Arterial Blood Partial Pressure CO2 40.0, Arterial Blood Partial Pressure O2 , Arterial Blood HCO3 24.8, Arterial Blood Oxygen Saturation 93.0L, Arterial Blood Base Excess 0.2, William Test Positive 02/11/20 11:52: POC Whole Blood Glucose 336H Height (Feet): 5 Height (Inches): 8.00 Weight (Pounds): 195 Objective General: WDWN male in mild distress A&O x 4 HEENT: Normocephalic cephalic atraumatic, pupils equal round reactive to light and accommodation, nares patent and no symmetrical, no tonsillar exudates, mucous membranes moist CV: Regular rate regular rhythm, no murmurs, rubs, or gallops Pulm: Lungs clear to auscultation bilaterally. No wheezes, rhonchi, or rales + tachypnea GI: Soft, nontender, nondistended, bowel sounds present Neuro: CN 2-12 intact bilaterally, no focal signs. Ext: No lower extremity edema bilaterally Skin: no rashes lesions or ulcers Msk: Joints symmetrical in upper extremity and lower extremity bilaterally, no joint swelling. Lymph: No lymphadenopathy in upper extremity and lower extremity Assessment/Plan Assessment/Plan: #Acute hypoxic respiratory failure secondary to Covid pneumonia #?CAP #Covid pneumonia #Dyspnea #Sinus tachycardia due to COVID pna #chest pain, resolved. Likely related to COVID. Appreciate cards input #Fever due to above #asthma, does not appear to be in exacerbation > onset of symptoms around 12/26 > Admission labs: dimer 0.73, trop neg, lactate 1.7, CRP 31 > CXR with bilateral infiltrates -Admit to SDU -ABG PRN -Wean to keep sats >92% -Appreciate pulmonary consult: Dr. Malagon -Appreciate ID consult: Dr. Thompson -Appreciate Cardiology consult: Dr. Rubalcava -Trend inflammatory markers -Follow blood cultures -Keep on dry side -Remdesivir per ID (02/08 - ) -Decadron 6mg Daily (1/2 - ) -Rocephin 1gm daily (1/2 - ) -Doxycyline 100mg Q12hr (1/2 - ) -Albuterol Q6hr -tte #Diabetes mellitus type 2 Accu-Cheks before meals and at bedtime Diabetic diet SSI Hypoglycemia protocol -Lantus 5 units daily FENPPX DVTPPX:Lovenox GI PPX: protonix Fluids: PRN Diet: diabetic Lines: peripheral PT/OT: pending Code status: Full Dispo: Home vs. rehab Reason for Continued Hospitalization: hypoxia MIPS ([employer]-based Incentive Payment System) Applicable CPT: 26484, 78796 CHECK ALL THAT ARE MET: [] Measure #5 (CHF): All ages. Prescribe ROYA/ARB upon discharge for patients with left ventricular systolic dysfunction. If not, the reason is clearly documented in the medical chart [] Measure #8 (CHF): All ages. Prescribe a beta yudy upon discharge for patients with left ventricular systolic dysfunction. If not, the reason is clearly documented in the medical chart. [x] Measure #47: Advance care plan or surrogate decision maker documented in the medical record. [x] Measure #130 The provider has documented, updated, or reviewed the patients current medication list and has documented it in the patients note. [x] Measure #374 (All): Send report to referring provider. [] Measure #407(Sepsis due to MSSA bacteremia): Age 18+ Patient treated with a beta-lactam antibiotic (Nafcillin, Oxacillin or Cefazolin) as definitive therapy. MEDICAL COMPLEXITYHigh complexity medical decision making (need 2/3 categories)Problem - need 4 points [x]Acute/new problem with new plan for workup (4 points, 1 max) [] Acute/new problem without additional workup (3 points, 1 max) [x] Unstable chronic problem actively being managed (2 point each, 2 max) [x] Stable chronic problem actively being managed (1 point each, 2 max) [] Self-limited/transient process (constipation, muscle ache, etc) (1 point each, 2 max) Data - need 4 points [x] Reviewed labs/imaging studies (1 points, 2 max) [x] Independent review of imaging (EKG, xrays, etc) (2 points, 2 max) [x] Discussed case with consult/other MD/RN (2 points, 2 max) High Risk - qualify if have one of the following: [x] Severe exacerbation of acute problem, acute mental status change, IV narcotics, monitoring drug levels (vancomycin, INR, tacrolimus etc) I spent 36 minutes on this patient's case, and 22 mins was dedicated to counseling and/or care coordination. Discussed with ID, cardiology, pulmonology, RN Time of note may not reflect time of encounter Salvatore Alexandra D.O. Feb 11, 2020 16:00
--- NOTE | 2020-02-11 19:10 | NUR ---
NURSE NOTES: Received report from rai Constantino RN. Pt is lying in bed, on non-rebreather mask 15L O2, 100% FiO2, saturating 93-95%. Denies pain, not in acute distress. Pt is alert and oriented x 4. Denies pain, uses urinal to urinate. Peripheral IV on L wrist is intact and patent. No skin issues noted. Bed is locked and in lowest position, bed alarm on, call light is with the pt. Fall ans aspiration precautions in place. Recent labs, MD orders and medications reviewed. Will continue to monitor pt. Will continue with the plan of care.
[2020-02-11 20:00] VITALS: BP 132/91
[2020-02-11] MEDS: Maintenance Dose:Remdesivir 100mg/NS 230ml x 4 Doses IV SCH ×2 (20:51)
--- NOTE | 2020-02-11 22:00 | NUR ---
NURSE NOTES: Initial assessment done. Medications administered per order. Labs reviewed. Pt denies pain. Will continue to monitor pt.
[2020-02-12] VITALS: BP 118/76
[2020-02-12 04:00] VITALS: BP 120/80
--- NOTE | 2020-02-12 05:00 | NUR ---
NURSE NOTES: Pt assisted in cleaning himself and changing his gown. Pt is continent, had bowel movement in the bedside commode. Will continue to monitor pt.
[2020-02-12] MEDS: NovoLOG Insulin Flexpen SUBQ SCH ×4 (05:36→20:51)
[2020-02-12 06:19] LABS: BASOPHILS % (AUTO) 0.3 % (0.0-2.0); EOSINOPHILS % (AUTO) 0.2 % (0.0-3.0); HEMATOCRIT 42.9 % (42.0-52.0); HEMOGLOBIN 14.6 G/DL (14.2-18.0); LYMPHOCYTES % (AUTO) 11.8 % (20.0-45.0); MEAN CORPUSCULAR VOLUME 87 FL (80-99); MONOCYTES % (AUTO) 5.4 % (1.0-10.0); NEUTROPHILS % (AUTO) 82.3 % (45.0-75.0); PLATELET COUNT 331 K/UL (150-450); RED BLOOD COUNT 4.91 M/UL (4.70-6.10); RED CELL DISTRIBUTION WIDTH 12.5 % (11.6-14.8)
--- NOTE | 2020-02-12 07:10 | NUR ---
NURSE NOTES: Received patient report from SHARIF Bates. Patient in bed, awake. Patient on Non rebreather @ 15L FiO2 100%, no symptoms of respiratory distress at this time. Patient with L wrist 22G TKO, patent and intact. Patient denies pain or discomfort at this time. Bed in lowest position, locked with side rails x2 up. Call light within reach.
[2020-02-12 07:13] LABS: ALANINE AMINOTRANSFERASE 50 U/L (12-78); ALBUMIN 2.3 G/DL (3.4-5.0); ALBUMIN/GLOBULIN RATIO 0.5 (1.0-2.7); ALKALINE PHOSPHATASE 61 U/L (46-116); ANION GAP 8 mmol/L (5-15); ASPARTATE AMINO TRANSFERASE 22 U/L (15-37); BILIRUBIN,DIRECT 0.2 MG/DL (0.0-0.3); BILIRUBIN,TOTAL 0.3 MG/DL (0.2-1.0); BLOOD UREA NITROGEN 20 mg/dL (7-18); CALCIUM 9.1 MG/DL (8.5-10.1); CARBON DIOXIDE 28 MMOL/L (21-32); CHLORIDE 104 MMOL/L (98-107); CREATININE 0.8 MG/DL (0.55-1.30); POTASSIUM 3.5 MMOL/L (3.5-5.1); SODIUM 140 MMOL/L (136-145)
--- NOTE | 2020-02-12 07:25 | NUR ---
NURSE HAND-OFF REPORT: Important Events on Shift:None Patient Status: Full code Diet: consistent carb Pending Orders: N Pending Results/Labs:N Pending MD notification:N Latest Vital Signs: Temperature 98.4 , Pulse 71 , B/P 120 /80 , Respiratory Rate 22 , O2 SAT 92 , Non-Rebreather, O2 Flow Rate 15.0 . Vital Sign Comment: stable EKG Rhythm: Sinus Rhythm Rhythm change?: N MD Notified?: Y -Dr Clarice BLOOM Response: No New Orders Received Latest [place] Fall Score: 45 Fall Risk: High Risk Safety Measures: Call light Within Reach, Bed Alarm Zone 1, Side Rails Side Rails x2, Bed position Low and Locked. Fall Precautions: Yellow Socks Patient Fall Education Report given to rai Bustillo RN.
[2020-02-12 08:00] VITALS: BP 136/92
[2020-02-12] MEDS: Docusate 100mg cap ORAL SCH ×2 (08:25→20:33)
[2020-02-12] MEDS: dexAMETHasone 10mg/ml Inj IV SCH (08:26)
[2020-02-12] MEDS: Levemir Flexpen SUBQ SCH (08:26)
[2020-02-12] MEDS: Doxycycline Monohydrate 100mg ORAL SCH ×2 (08:26→20:33)
--- NOTE | 2020-02-12 09:05 | Pulmonology Progress Note ---
Subjective Allergies: Coded Allergies: No Known Allergies (Unverified , 02/09/20) Subjective on 100 % NRM, denies CP, reports dry intermittent persistent cough, + chest discomfort with cough and deep breathing started 02/08 on DEX and REM remains afebrile, no leukocytosis Objective Last 24 Hour Vital Signs Date Time Temp Pulse Resp B/P (MAP) Pulse Ox O2 Delivery O2 Flow Rate FiO2 02/12/20 07:10 93 Non-Rebreather 15.0 100 02/12/20 07:10 79 20 93 Non-Rebreather 15.0 100 02/12/20 04:00 Non-Rebreather 15.0 02/12/20 04:00 85 02/12/20 04:00 98.4 71 22 120/80 (93) 92 02/12/20 04:00 15.0 100 02/12/20 00:00 97.9 72 22 118/76 (90) 94 02/12/20 00:00 Non-Rebreather 15.0 02/12/20 00:00 67 02/12/20 00:00 15.0 100 02/11/20 20:00 97.7 82 22 132/91 (105) 95 02/11/20 20:00 15.0 100 02/11/20 20:00 70 02/11/20 20:00 Non-Rebreather 15.0 02/11/20 19:36 94 Non-Rebreather 15.0 100 02/11/20 19:36 70 20 94 Non-Rebreather 15.0 100 02/11/20 16:00 15.0 100 02/11/20 16:00 78 02/11/20 16:00 Non-Rebreather 15.0 02/11/20 16:00 97.7 78 20 140/82 (101) 96 02/11/20 12:00 73 02/11/20 12:00 15.0 100 02/11/20 12:00 98.4 73 21 124/74 (91) 95 02/11/20 12:00 Non-Rebreather 15.0 Intake and Output 02/11/20 02/12/20 19:00 07:00 Intake Total 1600 ml 587.5 ml Output Total 2400 ml 2050 ml Balance -800 ml -1462.5 ml Intake Oral 1600 ml 300 ml IV Total 287.5 ml Output Urine Total 2400 ml 2050 ml # Voids 6 4 # Bowel Movements 2 2 General Appearance: WD/WN - middle age Spanisg speaking male in mild resp distress , no acute distress HEENT: normocephalic, atraumatic, anicteric, mucous membranes moist, PERRL Respiratory: decreased breath sounds, other - NRM Cardiovascular: normal rate, regular rhythm Abdomen: normal bowel sounds, soft, non tender Extremities: no edema, pedal pulses normal Skin: no rash 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 grossly normal, no motor/sensory deficits, alert, oriented x 3, responsive Musculoskeletal: normal muscle bulk Microbiology Date/Time Source Procedure Growth Status 02/09/20 14:10 Nasopharynx SARS-CoV-2 RdRp Gene Assay - Final Complete 02/09/20 14:10 Blood Blood Culture - Preliminary NO GROWTH AFTER 48 HOURS Resulted 02/09/20 13:55 Blood Blood Culture - Preliminary NO GROWTH AFTER 48 HOURS Resulted Laboratory Tests 02/11/20 10:17: Arterial Blood pH 7.410, Arterial Blood Partial Pressure CO2 40.0, Arterial Blood Partial Pressure O2 , Arterial Blood HCO3 24.8, Arterial Blood Oxygen Saturation 93.0L, Arterial Blood Base Excess 0.2, William Test Positive 02/11/20 11:52: POC Whole Blood Glucose 336H 02/11/20 16:58: POC Whole Blood Glucose [Pending] 02/11/20 20:54: POC Whole Blood Glucose 315H 02/12/20 04:00: White Blood Count 9.0, Red Blood Count 4.91, Hemoglobin 14.6, Hematocrit 42.9, Mean Corpuscular Volume 87, Mean Corpuscular Hemoglobin 29.8, Mean Corpuscular Hemoglobin Concent 34.0, Red Cell Distribution Width 12.5, Platelet Count 331, Mean Platelet Volume 5.4L, Neutrophils (%) (Auto) 82.3H, Lymphocytes (%) (Auto) 11.8L, Monocytes (%) (Auto) 5.4, Eosinophils (%) (Auto) 0.2, Basophils (%) (Auto) 0.3, Sodium Level 140, Potassium Level 3.5, Chloride Level 104, Carbon Dioxide Level 28, Anion Gap 8, Blood Urea Nitrogen 20H, Creatinine 0.8, Estimat Glomerular Filtration Rate > 60, Glucose Level 193H, Hemoglobin A1c 8.2H, Calcium Level 9.1, Total Bilirubin 0.3, Direct Bilirubin 0.2, Aspartate Amino Transf (AST/SGOT) 22, Alanine Aminotransferase (ALT/SGPT) 50, Alkaline Phosphatase 61, Total Protein 7.0, Albumin 2.3L, Globulin 4.7, Albumin/Globulin Ratio 0.5L 02/12/20 05:33: POC Whole Blood Glucose 182H 02/12/20 08:10: Arterial Blood pH 7.460H, Arterial Blood Partial Pressure CO2 35.4, Arterial Blood Partial Pressure O2 , Arterial Blood HCO3 24.6, Arterial Blood Oxygen Saturation 92.3L, Arterial Blood Base Excess 1.2, William Test Positive Current Medications Medications (Trade) Dose Ordered Sig/Deepa Route PRN Reason Start Time Stop Time Status Last Admin Dose Admin Acetaminophen (Tylenol) 500 mg Q6H PRN ORAL Mild Pain (Pain Scale 1-3) 02/09/20 19:30 03/10/20 19:29 Acetaminophen (Tylenol) 500 mg Q6H PRN ORAL Temp >100.5 02/09/20 19:45 03/10/20 19:44 Albuterol/ Ipratropium (Combivent Respimat) 1 puff Q6HRT INH 02/10/20 20:00 03/11/20 19:59 02/12/20 06:26 Bisacodyl (Dulcolax) 10 mg DAILYPRN PRN RECTAL Constipation 02/09/20 19:30 05/09/20 19:29 Ceftriaxone Sodium 1 gm/ Dextrose 55 ml @ 110 mls/hr Q24H IVPB 02/10/20 14:00 02/17/20 13:59 02/11/20 14:41 Dexamethasone Sodium Phosphate (Decadron 10mg/ ml Inj) 6 mg DAILY IV 02/10/20 09:00 02/19/20 09:01 02/12/20 08:26 Dextrose (Dextrose 50%) 25 ml Q30M PRN IV Hypoglycemia 02/09/20 19:30 05/09/20 19:29 Dextrose (Dextrose 50%) 50 ml Q30M PRN IV Hypoglycemia 02/09/20 19:30 05/09/20 19:29 Diphenhydramine HCl (Benadryl) 25 mg Q6H PRN ORAL Itching/Pruritis 02/09/20 19:30 2/1/21 19:29 Docusate Sodium (Colace) 100 mg EVERY 12 HOURS ORAL 02/09/20 21:00 03/10/20 20:59 02/12/20 08:25 Doxycycline Monohydrate (Doxycycline Monohydrate) 100 mg EVERY 12 HOURS ORAL 02/09/20 21:00 02/16/20 20:59 02/12/20 08:26 Enoxaparin Sodium (Lovenox) 40 mg Q24H SUBQ 02/10/20 15:00 05/10/20 14:59 02/11/20 14:42 Guaifenesin/ Dextromethorphan (Robitussin DM Syrup) 10 ml Q4H PRN ORAL For Cough 02/10/20 12:00 05/10/20 11:59 02/11/20 05:30 Hydralazine HCl (Apresoline) 10 mg Q4H PRN IV htn 02/09/20 20:30 05/09/20 20:29 Insulin Aspart (NovoLOG) BEFORE MEALS AND HS SUBQ 02/09/20 21:00 05/09/20 20:59 02/12/20 05:36 Insulin Detemir (Levemir) 5 units DAILY SUBQ 02/11/20 12:00 05/11/20 11:59 02/12/20 08:26 Magnesium Hydroxide (Mom) 30 ml HSPRN PRN ORAL Constipation 02/09/20 19:30 03/10/20 19:29 Ondansetron HCl (Zofran) 4 mg Q6H PRN IVP Nausea & Vomiting 02/09/20 19:30 03/10/20 19:29 Oxycodone HCl (Roxicodone) 5 mg Q6H PRN ORAL pain 4-10 02/09/20 19:30 02/16/20 19:29 Pantoprazole (Protonix) 40 mg DAILY ORAL 02/10/20 09:00 03/11/20 08:59 02/12/20 08:25 Polyethylene Glycol (Miralax) 17 gm DAILYPRN PRN ORAL Constipation 02/09/20 19:30 03/10/20 19:29 Prochlorperazine (Compazine) 10 mg Q6H PRN IVP Nausea & Vomiting 02/09/20 19:30 03/10/20 19:29 Remdesivir 100 mg/ Sodium Chloride 250 ml @ 250 mls/hr Q24H IV 02/10/20 21:00 02/13/20 21:59 02/11/20 20:51 Assessment/Plan Assessment/Plan ASSESSMENT/PROBLEM LIST: * COVID 19 PNEUMONIA * ACUTE HYPOXEMIC RESPIRATORY FAILURE 2/2 ABOVE * B PULMONARY INFILTRATES 2/2 ABOVE * Asthma * DM * HTN * Obesity PLAN: Day of positive test : 02/08 rapid COVID 19 + * O2- NRM titrate settings as tolerated * ABG noted , sat 92- 93% on monitor * Optimize pulmonary hygiene/mobilize as tolerated * Titrate down FiO2 to keep SaO2 > 90% * encourage prone position as tolerated * Dex D4 ( 2 -) * Rem D4 ( 2 -) * COMBIVENT * Monitor inflammatory markers CRP 31.9-> 133.2 - * fup with CXR this am * Monitor volumes and renal function * DVT Px: LMWH * Venous Duplex BLE * a/tussive prn * FC * f/up with consultants recs case discussed and evaluated by supervising physician Clarissa Loera NP Feb 12, 2020 09:04
--- NOTE | 2020-02-12 10:57 | Cardiac Electrophysiology PN ---
Assessment/Plan Assessment/Plan 1. Sinus tachycardia due to respiratory failure due to COVID-19. EKG shows sinus rhythm with right bundle-branch block. EF 65% 2. COVID-19 pneumonia. On dexamethasone, ceftriaxone and non-rebreather face mask. 3. History of hypertension, on p.r.n. IV hydralazine. 4. Diabetes, on sliding scale insulin. Subjective Subjective On 15 liter VM and 100% Fio2. EF 65% in Sinus rhythm. No events Objective Last 24 Hour Vital Signs Date Time Temp Pulse Resp B/P (MAP) Pulse Ox O2 Delivery O2 Flow Rate FiO2 02/12/20 07:10 93 Non-Rebreather 15.0 100 02/12/20 07:10 79 20 93 Non-Rebreather 15.0 100 02/12/20 04:00 Non-Rebreather 15.0 02/12/20 04:00 85 02/12/20 04:00 98.4 71 22 120/80 (93) 92 02/12/20 04:00 15.0 100 02/12/20 00:00 97.9 72 22 118/76 (90) 94 02/12/20 00:00 Non-Rebreather 15.0 02/12/20 00:00 67 02/12/20 00:00 15.0 100 02/11/20 20:00 97.7 82 22 132/91 (105) 95 02/11/20 20:00 15.0 100 02/11/20 20:00 70 02/11/20 20:00 Non-Rebreather 15.0 02/11/20 19:36 94 Non-Rebreather 15.0 100 02/11/20 19:36 70 20 94 Non-Rebreather 15.0 100 02/11/20 16:00 15.0 100 02/11/20 16:00 78 02/11/20 16:00 Non-Rebreather 15.0 02/11/20 16:00 97.7 78 20 140/82 (101) 96 02/11/20 12:00 73 02/11/20 12:00 15.0 100 02/11/20 12:00 98.4 73 21 124/74 (91) 95 02/11/20 12:00 Non-Rebreather 15.0 Intake and Output 02/11/20 02/12/20 19:00 07:00 Intake Total 1600 ml 587.5 ml Output Total 2400 ml 2050 ml Balance -800 ml -1462.5 ml Intake Oral 1600 ml 300 ml IV Total 287.5 ml Output Urine Total 2400 ml 2050 ml # Voids 6 4 # Bowel Movements 2 2 Laboratory Tests Test 02/11/20 11:52 02/11/20 16:58 02/11/20 20:54 02/12/20 04:00 POC Whole Blood Glucose 336 MG/DL (74-106) H Pending 315 MG/DL (74-106) H White Blood Count 9.0 K/UL (4.8-10.8) Red Blood Count 4.91 M/UL (4.70-6.10) Hemoglobin 14.6 G/DL (14.2-18.0) Hematocrit 42.9 % (42.0-52.0) Mean Corpuscular Volume 87 FL (80-99) Mean Corpuscular Hemoglobin 29.8 PG (27.0-31.0) Mean Corpuscular Hemoglobin Concent 34.0 G/DL (32.0-36.0) Red Cell Distribution Width 12.5 % (11.6-14.8) Platelet Count 331 K/UL (150-450) Mean Platelet Volume 5.4 FL (6.5-10.1) L Neutrophils (%) (Auto) 82.3 % (45.0-75.0) H Lymphocytes (%) (Auto) 11.8 % (20.0-45.0) L Monocytes (%) (Auto) 5.4 % (1.0-10.0) Eosinophils (%) (Auto) 0.2 % (0.0-3.0) Basophils (%) (Auto) 0.3 % (0.0-2.0) Sodium Level 140 MMOL/L (136-145) Potassium Level 3.5 MMOL/L (3.5-5.1) Chloride Level 104 MMOL/L (98-107) Carbon Dioxide Level 28 MMOL/L (21-32) Anion Gap 8 mmol/L (5-15) Blood Urea Nitrogen 20 mg/dL (7-18) H Creatinine 0.8 MG/DL (0.55-1.30) Estimat Glomerular Filtration Rate > 60 mL/min (>60) Glucose Level 193 MG/DL (74-106) H Hemoglobin A1c 8.2 % (4.3-6.0) H Calcium Level 9.1 MG/DL (8.5-10.1) Total Bilirubin 0.3 MG/DL (0.2-1.0) Direct Bilirubin 0.2 MG/DL (0.0-0.3) Aspartate Amino Transf (AST/SGOT) 22 U/L (15-37) Alanine Aminotransferase (ALT/SGPT) 50 U/L (12-78) Alkaline Phosphatase 61 U/L (46-116) Total Protein 7.0 G/DL (6.4-8.2) Albumin 2.3 G/DL (3.4-5.0) L Globulin 4.7 g/dL Albumin/Globulin Ratio 0.5 (1.0-2.7) L Test 02/12/20 05:33 02/12/20 08:10 POC Whole Blood Glucose 182 MG/DL (74-106) H Arterial Blood pH 7.460 (7.350-7.450) Arterial Blood Partial Pressure CO2 35.4 mmHg (35.0-45.0) Arterial Blood Partial Pressure O2 mmHg (75.0-100.0) Arterial Blood HCO3 24.6 mmol/L (22.0-26.0) Arterial Blood Oxygen Saturation 92.3 % (95-100) L Arterial Blood Base Excess 1.2 (-2-2) William Test Positive Microbiology Date/Time Source Procedure Growth Status 02/09/20 14:10 Nasopharynx SARS-CoV-2 RdRp Gene Assay - Final Complete 02/09/20 14:10 Blood Blood Culture - Preliminary NO GROWTH AFTER 48 HOURS Resulted 02/09/20 13:55 Blood Blood Culture - Preliminary NO GROWTH AFTER 48 HOURS Resulted Objective HEAD AND NECK: no JVD.VM is on LUNGS: Coarse rhonchi. CARDIOVASCULAR: regular S1 and S2 and tachycardic. ABDOMEN: Soft. EXTREMITIES: No pitting edema. Kiko Rubalcava MD Feb 12, 2020 10:57
--- NOTE | 2020-02-12 11:02 | NUR ---
Customer Acquisition ManagerWool Dyer SI: Respiratory Failure, COVID PNA T-98.4, HR 85, RR 22, BP 120/80 15L NRM, FiO2 100% O2 sat 94% IS: Remdisivir IV Lovenox sq Rocephin IV Dexamethasone IV Apresoline IV SDU Status
[2020-02-12 12:00] VITALS: BP 140/83
--- NOTE | 2020-02-12 12:40 | NUR ---
RADIOLOGY DEPT., CHEST X-RAY DONE.-P.DYE
[2020-02-12] MEDS: cefTRIAXone 1 GM in D5W 55 ML IVPB SCH (14:31)
[2020-02-12] MEDS: Enoxaparin 40mg Inj SUBQ SCH (14:32)
--- NOTE | 2020-02-12 14:39 | Diagnostic Imaging Report ---
Indication: Shortness of breath Technique: One view of the chest Comparison: 02/09/2020 Findings: Bilateral infiltrates again demonstrated, probably unchanged. Upper limits normal heart size. Impression: Unchanged, over 3 days, findings as above.
[2020-02-12 16:00] VITALS: BP 142/84
--- NOTE | 2020-02-12 17:53 | General Progress Note ---
Subjective Date patient seen: Feb 12, 2020 ROS Limited/Unobtainable: No Allergies: Coded Allergies: No Known Allergies (Unverified , 02/09/20) Subjective No acute events overnight per nursing. Patient remains on NRB. Saturating well. Still has mild to moderate SOB. No other complaints. Review of systems: Constitutional: Denies: chills, diaphoresis, fever, malaise, weakness, HEENT: Denies: eye pain, blurred vision, double vision, ear pain, nose pain, throat pain, Cardiovascular: Denies: chest pain, edema, lightheadedness, palpitations Respiratory: + Dyspnea and cough Gastrointestinal/Abdominal: Denies: abdominal pain, black stools, blood in stool, constipation, diarrhea, nausea, poor fluid intake vomiting, other Genitourinary: Denies: burning, discharge, frequency, Neurologic/Psychiatric: Denies: headache, numbness, paresthesia, new weakness, other Endocrine: Denies: excessive sweating, flushing, intolerance to cold, MSK: denies joint pains, swelling, stiffness Hematologic/Lymphatic: Denies: anemia, easy bleeding, easy bruising, Psych: no anxiety, depression, SI or HI Objective Last 24 Hour Vital Signs Date Time Temp Pulse Resp B/P (MAP) Pulse Ox O2 Delivery O2 Flow Rate FiO2 02/12/20 16:00 74 02/12/20 16:00 97.7 80 22 142/84 (103) 96 02/12/20 16:00 Non-Rebreather 15.0 02/12/20 16:00 15.0 100 02/12/20 12:31 77 02/12/20 12:00 Non-Rebreather 15.0 02/12/20 12:00 98.2 92 24 140/83 (102) 97 02/12/20 12:00 15.0 100 02/12/20 08:00 15.0 100 02/12/20 08:00 98.4 94 26 136/92 (107) 93 02/12/20 08:00 88 02/12/20 08:00 Non-Rebreather 15.0 02/12/20 07:10 93 Non-Rebreather 15.0 100 02/12/20 07:10 79 20 93 Non-Rebreather 15.0 100 02/12/20 04:00 Non-Rebreather 15.0 02/12/20 04:00 85 02/12/20 04:00 98.4 71 22 120/80 (93) 92 02/12/20 04:00 15.0 100 02/12/20 00:00 97.9 72 22 118/76 (90) 94 02/12/20 00:00 Non-Rebreather 15.0 02/12/20 00:00 67 02/12/20 00:00 15.0 100 02/11/20 20:00 97.7 82 22 132/91 (105) 95 02/11/20 20:00 15.0 100 02/11/20 20:00 70 02/11/20 20:00 Non-Rebreather 15.0 02/11/20 19:36 94 Non-Rebreather 15.0 100 02/11/20 19:36 70 20 94 Non-Rebreather 15.0 100 Intake and Output 02/11/20 02/12/20 19:00 07:00 Intake Total 1600 ml 587.5 ml Output Total 2400 ml 2050 ml Balance -800 ml -1462.5 ml Intake Oral 1600 ml 300 ml IV Total 287.5 ml Output Urine Total 2400 ml 2050 ml # Voids 6 4 # Bowel Movements 2 2 Laboratory Tests 02/11/20 20:54: POC Whole Blood Glucose 315H 02/12/20 04:00: White Blood Count 9.0, Red Blood Count 4.91, Hemoglobin 14.6, Hematocrit 42.9, Mean Corpuscular Volume 87, Mean Corpuscular Hemoglobin 29.8, Mean Corpuscular Hemoglobin Concent 34.0, Red Cell Distribution Width 12.5, Platelet Count 331, Mean Platelet Volume 5.4L, Neutrophils (%) (Auto) 82.3H, Lymphocytes (%) (Auto) 11.8L, Monocytes (%) (Auto) 5.4, Eosinophils (%) (Auto) 0.2, Basophils (%) (Auto) 0.3, Sodium Level 140, Potassium Level 3.5, Chloride Level 104, Carbon Dioxide Level 28, Anion Gap 8, Blood Urea Nitrogen 20H, Creatinine 0.8, Estimat Glomerular Filtration Rate > 60, Glucose Level 193H, Hemoglobin A1c 8.2H, Calcium Level 9.1, Total Bilirubin 0.3, Direct Bilirubin 0.2, Aspartate Amino Transf (AST/SGOT) 22, Alanine Aminotransferase (ALT/SGPT) 50, Alkaline Phospha tase 61, Total Protein 7.0, Albumin 2.3L, Globulin 4.7, Albumin/Globulin Ratio 0.5L 02/12/20 05:33: POC Whole Blood Glucose 182H 02/12/20 08:10: Arterial Blood pH 7.460H, Arterial Blood Partial Pressure CO2 35.4, Arterial Blood Partial Pressure O2 , Arterial Blood HCO3 24.6, Arterial Blood Oxygen Saturation 92.3L, Arterial Blood Base Excess 1.2, William Test Positive Height (Feet): 5 Height (Inches): 8.00 Weight (Pounds): 195 Objective General: WDWN male in mild respiratory distress. A&O x 4 HEENT: Normocephalic cephalic atraumatic, pupils equal round reactive to light and accommodation, nares patent and no symmetrical, no tonsillar exudates, mucous membranes moist CV: Regular rate regular rhythm, no murmurs, rubs, or gallops Pulm: Lungs clear to auscultation bilaterally. No wheezes, rhonchi, or rales + tachypnea GI: Soft, nontender, nondistended, bowel sounds present Neuro: CN 2-12 intact bilaterally, no focal signs. Ext: No lower extremity edema bilaterally Skin: no rashes lesions or ulcers Msk: Joints symmetrical in upper extremity and lower extremity bilaterally, no joint swelling. Lymph: No lymphadenopathy in upper extremity and lower extremity Assessment/Plan Assessment/Plan: #Acute hypoxic respiratory failure secondary to Covid pneumonia - stable #?CAP #Covid pneumonia #Dyspnea #Sinus tachycardia due to COVID pna #chest pain, resolved. Likely related to COVID. Appreciate cards input #Fever due to above #asthma, does not appear to be in exacerbation > onset of symptoms around 12/26 > Admission labs: dimer 0.73, trop neg, lactate 1.7, CRP 31 > CXR with bilateral infiltrates -Admit to SDU -ABG PRN -Wean to keep sats >92% -Appreciate pulmonary consult: Dr. Malagon -Appreciate ID consult: Dr. Thompson -Appreciate Cardiology consult: Dr. Rubalcava -Trend inflammatory markers -Follow blood cultures -Keep on dry side -Remdesivir per ID (02/08 - ) -Decadron 6mg Daily (1/2 - ) -Rocephin 1gm daily (1/2 - ) -Doxycyline 100mg Q12hr (1/2 - ) -Albuterol Q6hr -tte #Diabetes mellitus type 2 Accu-Cheks before meals and at bedtime Diabetic diet SSI Hypoglycemia protocol -Lantus 5 units daily FENPPX DVTPPX:Lovenox GI PPX: protonix Fluids: PRN Diet: diabetic Lines: peripheral PT/OT: pending Code status: Full Dispo: Home vs. rehab Reason for Continued Hospitalization: hypoxia MIPS ([employer]-based Incentive Payment System) Applicable CPT: 72138, 25169 CHECK ALL THAT ARE MET: [] Measure #5 (CHF): All ages. Prescribe ROYA/ARB upon discharge for patients with left ventricular systolic dysfunction. If not, the reason is clearly documented in the medical chart [] Measure #8 (CHF): All ages. Prescribe a beta yudy upon discharge for patients with left ventricular systolic dysfunction. If not, the reason is clearly documented in the medical chart. [x] Measure #47: Advance care plan or surrogate decision maker documented in the medical record. [x] Measure #130 The provider has documented, updated, or reviewed the patients current medication list and has documented it in the patients note. [x] Measure #374 (All): Send report to referring provider. [] Measure #407(Sepsis due to MSSA bacteremia): Age 18+ Patient treated with a beta-lactam antibiotic (Nafcillin, Oxacillin or Cefazolin) as definitive therapy. MEDICAL COMPLEXITYHigh complexity medical decision making (need 2/3 categories)Problem - need 4 points [x]Acute/new problem with new plan for workup (4 points, 1 max) [] Acute/new problem without additional workup (3 points, 1 max) [x] Unstable chronic problem actively being managed (2 point each, 2 max) [x] Stable chronic problem actively being managed (1 point each, 2 max) [] Self-limited/transient process (constipation, muscle ache, etc) (1 point each, 2 max) Data - need 4 points [x] Reviewed labs/imaging studies (1 points, 2 max) [x] Independent review of imaging (EKG, xrays, etc) (2 points, 2 max) [x] Discussed case with consult/other MD/RN (2 points, 2 max) High Risk - qualify if have one of the following: [x] Severe exacerbation of acute problem, acute mental status change, IV narcotics, monitoring drug levels (vancomycin, INR, tacrolimus etc) I spent 38 minutes on this patient's case, and 21 mins was dedicated to counseling and/or care coordination. Discussed with ID, cardiology, pulmonology, RN Time of note may not reflect time of encounter Hank Sherwood M.D. Feb 12, 2020 17:53
--- NOTE | 2020-02-12 18:31 | Infectious Diseases Prog Note ---
Assessment/Plan Assessment/Plan ASSESSMENT AND PLAN: 1. covid-19 virus infection, pna, ? CAP, hypoxia, fevers - dexamethasone and remdesivir - ceftriaxone and doxycycline - monitor hypoxia, labs and chest x-ray 2. Diabetes. 3. No history of hypertension. 4. Blood sugar treatment per primary medical team. 5. Continue treatment per primary consultants. 6. No known drug allergies. 7. Social history is negative. 8. Family history is noncontributory. 9. MAR is noted. 10. Case was discussed with RN. Subjective Constitutional: Denies: fever HEENT: Reports: congestion Respiratory: Reports: shortness of breath Cardiovascular: Denies: chest pain Gastrointestinal/Abdominal: Denies: nausea Genitourinary: Denies: dysuria, hematuria Neurologic: Denies: headache Psychiatric: Denies: depression Skin: Denies: rash Hematologic: Denies: bleeding Musculoskeletal: Denies: pain Allergies: Coded Allergies: No Known Allergies (Unverified , 02/09/20) Objective Last 24 Hour Vital Signs Date Time Temp Pulse Resp B/P (MAP) Pulse Ox O2 Delivery O2 Flow Rate FiO2 02/12/20 16:00 74 02/12/20 16:00 97.7 80 22 142/84 (103) 96 02/12/20 16:00 Non-Rebreather 15.0 02/12/20 16:00 15.0 100 02/12/20 12:31 77 02/12/20 12:00 Non-Rebreather 15.0 02/12/20 12:00 98.2 92 24 140/83 (102) 97 02/12/20 12:00 15.0 100 02/12/20 08:00 15.0 100 02/12/20 08:00 98.4 94 26 136/92 (107) 93 02/12/20 08:00 88 02/12/20 08:00 Non-Rebreather 15.0 02/12/20 07:10 93 Non-Rebreather 15.0 100 02/12/20 07:10 79 20 93 Non-Rebreather 15.0 100 02/12/20 04:00 Non-Rebreather 15.0 02/12/20 04:00 85 02/12/20 04:00 98.4 71 22 120/80 (93) 92 02/12/20 04:00 15.0 100 02/12/20 00:00 97.9 72 22 118/76 (90) 94 02/12/20 00:00 Non-Rebreather 15.0 02/12/20 00:00 67 02/12/20 00:00 15.0 100 02/11/20 20:00 97.7 82 22 132/91 (105) 95 02/11/20 20:00 15.0 100 02/11/20 20:00 70 02/11/20 20:00 Non-Rebreather 15.0 02/11/20 19:36 94 Non-Rebreather 15.0 100 02/11/20 19:36 70 20 94 Non-Rebreather 15.0 100 Height (Feet): 5 Height (Inches): 8.00 Weight (Pounds): 195 General Appearance: no acute distress HEENT: normocephalic, atraumatic, anicteric, mucous membranes moist Respiratory/Chest: crackles/rales, rhonchi - bilaterally Cardiovascular: normal rate, regular rhythm, no gallop/murmur Abdomen: normal bowel sounds, soft, non tender, no organomegaly, non distended Genitourinary: other - no savage Extremities: no cyanosis Skin: no rash Neurologic/Psychiatric: clinical document improvement educator II-XII grossly normal, alert, responsive Lymphatic: no neck adenopathy Musculoskeletal: no effusion Chest x-ray - 02/12/20 - Procedure: XRAY Chest 1v Indication: Shortness of breath Technique: One view of the chest Comparison: 02/09/2020 Findings: Bilateral infiltrates again demonstrated, probably unchanged. Upper limits normal heart size. Impression: Unchanged, over 3 days, findings as above. Microbiology Date/Time Source Procedure Growth Status 02/09/20 14:10 Nasopharynx SARS-CoV-2 RdRp Gene Assay - Final Complete 02/09/20 14:10 Blood Blood Culture - Preliminary NO GROWTH AFTER 48 HOURS Resulted Laboratory Tests Test 02/11/20 20:54 02/12/20 04:00 02/12/20 05:33 02/12/20 08:10 POC Whole Blood Glucose 315 MG/DL (74-106) H 182 MG/DL (74-106) H White Blood Count 9.0 K/UL (4.8-10.8) Red Blood Count 4.91 M/UL (4.70-6.10) Hemoglobin 14.6 G/DL (14.2-18.0) Hematocrit 42.9 % (42.0-52.0) Mean Corpuscular Volume 87 FL (80-99) Mean Corpuscular Hemoglobin 29.8 PG (27.0-31.0) Mean Corpuscular Hemoglobin Concent 34.0 G/DL (32.0-36.0) Red Cell Distribution Width 12.5 % (11.6-14.8) Platelet Count 331 K/UL (150-450) Mean Platelet Volume 5.4 FL (6.5-10.1) L Neutrophils (%) (Auto) 82.3 % (45.0-75.0) H Lymphocytes (%) (Auto) 11.8 % (20.0-45.0) L Monocytes (%) (Auto) 5.4 % (1.0-10.0) Eosinophils (%) (Auto) 0.2 % (0.0-3.0) Basophils (%) (Auto) 0.3 % (0.0-2.0) Sodium Level 140 MMOL/L (136-145) Potassium Level 3.5 MMOL/L (3.5-5.1) Chloride Level 104 MMOL/L (98-107) Carbon Dioxide Level 28 MMOL/L (21-32) Anion Gap 8 mmol/L (5-15) Blood Urea Nitrogen 20 mg/dL (7-18) H Creatinine 0.8 MG/DL (0.55-1.30) Estimat Glomerular Filtration Rate > 60 mL/min (>60) Glucose Level 193 MG/DL (74-106) H Hemoglobin A1c 8.2 % (4.3-6.0) H Calcium Level 9.1 MG/DL (8.5-10.1) Total Bilirubin 0.3 MG/DL (0.2-1.0) Direct Bilirubin 0.2 MG/DL (0.0-0.3) Aspartate Amino Transf (AST/SGOT) 22 U/L (15-37) Alanine Aminotransferase (ALT/SGPT) 50 U/L (12-78) Alkaline Phosphatase 61 U/L (46-116) Total Protein 7.0 G/DL (6.4-8.2) Albumin 2.3 G/DL (3.4-5.0) L Globulin 4.7 g/dL Albumin/Globulin Ratio 0.5 (1.0-2.7) L Arterial Blood pH 7.460 (7.350-7.450) Arterial Blood Partial Pressure CO2 35.4 mmHg (35.0-45.0) Arterial Blood Partial Pressure O2 mmHg (75.0-100.0) Arterial Blood HCO3 24.6 mmol/L (22.0-26.0) Arterial Blood Oxygen Saturation 92.3 % (95-100) L Arterial Blood Base Excess 1.2 (-2-2) William Test Positive Current Medications Medications (Trade) Dose Ordered Sig/Deepa Route PRN Reason Start Time Stop Time Status Last Admin Dose Admin Acetaminophen (Tylenol) 500 mg Q6H PRN ORAL Mild Pain (Pain Scale 1-3) 02/09/20 19:30 03/10/20 19:29 Acetaminophen (Tylenol) 500 mg Q6H PRN ORAL Temp >100.5 02/09/20 19:45 03/10/20 19:44 Albuterol/ Ipratropium (Combivent Respimat) 1 puff Q6HRT INH 02/10/20 20:00 03/11/20 19:59 02/12/20 13:00 Bisacodyl (Dulcolax) 10 mg DAILYPRN PRN RECTAL Constipation 02/09/20 19:30 05/09/20 19:29 Ceftriaxone Sodium 1 gm/ Dextrose 55 ml @ 110 mls/hr Q24H IVPB 02/10/20 14:00 02/17/20 13:59 02/12/20 14:31 Dexamethasone Sodium Phosphate (Decadron 10mg/ ml Inj) 6 mg DAILY IV 02/10/20 09:00 02/19/20 09:01 02/12/20 08:26 Dextrose (Dextrose 50%) 25 ml Q30M PRN IV Hypoglycemia 02/09/20 19:30 05/09/20 19:29 Dextrose (Dextrose 50%) 50 ml Q30M PRN IV Hypoglycemia 02/09/20 19:30 05/09/20 19:29 Diphenhydramine HCl (Benadryl) 25 mg Q6H PRN ORAL Itching/Pruritis 02/09/20 19:30 03/10/20 19:29 Docusate Sodium (Colace) 100 mg EVERY 12 HOURS ORAL 02/09/20 21:00 03/10/20 20:59 02/12/20 08:25 Doxycycline Monohydrate (Doxycycline Monohydrate) 100 mg EVERY 12 HOURS ORAL 02/09/20 21:00 02/16/20 20:59 02/12/20 08:26 Enoxaparin Sodium (Lovenox) 40 mg Q24H SUBQ 02/10/20 15:00 05/10/20 14:59 02/12/20 14:32 Guaifenesin/ Dextromethorphan (Robitussin DM Syrup) 10 ml Q4H PRN ORAL For Cough 02/10/20 12:00 05/10/20 11:59 02/11/20 05:30 Hydralazine HCl (Apresoline) 10 mg Q4H PRN IV htn 02/09/20 20:30 05/09/20 20:29 Insulin Aspart (NovoLOG) BEFORE MEALS AND HS SUBQ 02/09/20 21:00 05/09/20 20:59 02/12/20 16:30 Insulin Detemir (Levemir) 5 units DAILY SUBQ 02/11/20 12:00 05/11/20 11:59 02/12/20 08:26 Magnesium Hydroxide (Mom) 30 ml HSPRN PRN ORAL Constipation 02/09/20 19:30 03/10/20 19:29 Ondansetron HCl (Zofran) 4 mg Q6H PRN IVP Nausea & Vomiting 02/09/20 19:30 03/10/20 19:29 Oxycodone HCl (Roxicodone) 5 mg Q6H PRN ORAL pain 4-10 02/09/20 19:30 02/16/20 19:29 Pantoprazole (Protonix) 40 mg DAILY ORAL 02/10/20 09:00 03/11/20 08:59 02/12/20 08:25 Polyethylene Glycol (Miralax) 17 gm DAILYPRN PRN ORAL Constipation 02/09/20 19:30 03/10/20 19:29 Prochlorperazine (Compazine) 10 mg Q6H PRN IVP Nausea & Vomiting 02/09/20 19:30 03/10/20 19:29 Remdesivir 100 mg/ Sodium Chloride 250 ml @ 250 mls/hr Q24H IV 02/10/20 21:00 02/13/20 21:59 02/11/20 20:51 Sonia Jade MD Feb 12, 2020 18:31
--- NOTE | 2020-02-12 19:00 | NUR ---
NURSE HAND-OFF REPORT: Important Events on Shift:NA Patient Status: Stable Diet: CCHO Pending Orders: NA Pending Results/Labs:NA Pending notification:NA Latest Vital Signs: Temperature 97.7 , Pulse 74 , B/P 142 /84 , Respiratory Rate 22 , O2 SAT 96 , Non-Rebreather, O2 Flow Rate 15.0 . Vital Sign Comment: Stable EKG Rhythm: Sinus Rhythm Rhythm change?: N MD Notified?: Jw Oneil MD Response: No New Orders Received Latest [place] Fall Score: 45 Fall Risk: High Risk Safety Measures: Call light Within Reach, Bed Alarm Zone 1, Side Rails Side Rails x2, Bed position Low and Locked. Fall Precautions: Yellow Socks Patient Fall Education Report given to SHARIF Mcdonald.
--- NOTE | 2020-02-12 19:43 | NUR ---
NURSE NOTES: Report received from SHARIF Veliz. Observed pt lying in the bed, denies pain at this time. SR noted. On NRB, 15L, saturating on 94%. IV on L W 22G, TKO. Bed in the lowest position. Side rails up x3. Will continue to monitor.
[2020-02-12 20:00] VITALS: BP 132/82
[2020-02-12] MEDS: Maintenance Dose:Remdesivir 100mg/NS 230ml x 4 Doses IV SCH ×2 (20:33)
--- NOTE | 2020-02-12 22:53 | NUR ---
NURSE NOTES: Pt lying in the bed, sleeping. SR noted. On bipap, 21/06, 100%, 94% noted. Reposition done. Will continue to monitor. Addendum: 02/12/20 at 2255 by Alexis Hall RN wrong pt. Pt on NRB, 94%. SR noted. pt sleeping calm. No other distress noted.
[2020-02-13] VITALS: BP 129/80
[2020-02-13 04:00] VITALS: BP 124/73
--- NOTE | 2020-02-13 04:00 | NUR ---
HAND-OFF: Report given to SHARIF Luque.
--- NOTE | 2020-02-13 04:33 | NUR ---
NURSE NOTES: Received report from SHARIF Mcdonald- pt. in bed awake- Indian speaking- A/O x's 4- able to make needs known, no signs or symptoms of acute cardiac or respiratory distress noted, bed alarm on, side rails up x's3 and safety brakes engaged, bed locked in position, pt. aware to ask for assist if ambulating to commode- call light within easy reach, pt. appears to be sating well on non-rebreather 15L at 955- no distress noted, pt. appears clean and dry- HOB elevated- aspiration precautions observed, Left wrist 22G IV intact and patent- TKO, safety measures continued, will continue with plan of care. Addendum: 02/13/20 at 0437 by JOSSY SHAW RN RN correction to message above sating at 95%.
[2020-02-13] MEDS: NovoLOG Insulin Flexpen SUBQ SCH ×4 (05:46→21:10)
[2020-02-13 06:52] LABS: BASOPHILS % (AUTO) 0.3 % (0.0-2.0); EOSINOPHILS % (AUTO) 0.9 % (0.0-3.0); HEMATOCRIT 43.3 % (42.0-52.0); LYMPHOCYTES % (AUTO) 14.4 % (20.0-45.0); MEAN CORPUSCULAR VOLUME 86 FL (80-99); MONOCYTES % (AUTO) 2.6 % (1.0-10.0); NEUTROPHILS % (AUTO) 81.8 % (45.0-75.0); PLATELET COUNT 326 K/UL (150-450); RED BLOOD COUNT 5.01 M/UL (4.70-6.10); RED CELL DISTRIBUTION WIDTH 12.6 % (11.6-14.8); WHITE BLOOD COUNT 10.9 K/UL (4.8-10.8)
[2020-02-13 07:01] LABS: ALANINE AMINOTRANSFERASE 51 U/L (12-78); ALBUMIN 2.5 G/DL (3.4-5.0); ALBUMIN/GLOBULIN RATIO 0.5 (1.0-2.7); ALKALINE PHOSPHATASE 63 U/L (46-116); ANION GAP 7 mmol/L (5-15); ASPARTATE AMINO TRANSFERASE 26 U/L (15-37); BILIRUBIN,DIRECT 0.2 MG/DL (0.0-0.3); BILIRUBIN,TOTAL 0.6 MG/DL (0.2-1.0); BLOOD UREA NITROGEN 17 mg/dL (7-18); CALCIUM 8.7 MG/DL (8.5-10.1); CARBON DIOXIDE 28 MMOL/L (21-32); CHLORIDE 101 MMOL/L (98-107); CREATININE 0.7 MG/DL (0.55-1.30); POTASSIUM 3.5 MMOL/L (3.5-5.1); SODIUM 136 MMOL/L (136-145)
--- NOTE | 2020-02-13 07:09 | NUR ---
NURSE HAND-OFF REPORT: Important Events on Shift:none Patient Status: stable Diet: CCHO Pending Orders: Pending Results/Labs: Pending MD notification: Latest Vital Signs: Temperature 98.8 , Pulse 89 , B/P 124 /73 , Respiratory Rate 24 , O2 SAT 95 , Non-Rebreather, O2 Flow Rate 15.0 . Vital Sign Comment: EKG Rhythm: Sinus Rhythm Rhythm change?: N MD Notified?: MD Response: Latest [place] Fall Score: 45 Fall Risk: High Risk Safety Measures: Call light Within Reach, Bed Alarm Zone 1, Side Rails Side Rails x2, Bed position Low and Locked. Fall Precautions: Yellow Socks Patient Fall Education Report given to SHARIF Price- aware to f/u on any abnormal am labs.
--- NOTE | 2020-02-13 07:09 | NUR ---
NURSE NOTES: Received report from SHARIF Luque
--- NOTE | 2020-02-13 07:20 | NUR ---
NURSE HAND-OFF REPORT: Important Events on Shift: stable Patient Status: Diet: Pending Orders: Pending Results/Labs: Pending notification: Latest Vital Signs: Temperature 98.4 , Pulse 80 , B/P 127 /78 , Respiratory Rate 20 , O2 SAT 94 , Non-Rebreather, O2 Flow Rate 15.0 . Vital Sign Comment: EKG Rhythm: Sinus Rhythm Rhythm change?: N Notified?: Y -Dr Clarice BLOOM Response: No New Orders Received Latest [place] Fall Score: 45 Fall Risk: High Risk Safety Measures: Call light Within Reach, Bed Alarm Zone 1, Side Rails Side Rails x2, Bed position Low and Locked. Fall Precautions: Yellow Socks Patient Fall Education Report given to Jazmyne Greer. Addendum: 02/13/20 at 1945 by Phylicia Lima RN wrong time. should be at 1920
[2020-02-13 08:00] VITALS: BP 134/69
--- NOTE | 2020-02-13 08:30 | NUR ---
NURSE NOTES: Patient is awake. No signs of grimacing and distress noted. Patient is on nonrebreather 15 L, tolerating well saturating mid 90s. Patient is on CCHO diet. Patient has a L wrist 22 g, patent, intact, saline locked. HOB elevated, bed is on lowest position, locked, side rails up. Patient will continue to be monitored.
[2020-02-13] MEDS: Doxycycline Monohydrate 100mg ORAL SCH ×2 (08:44→20:50)
[2020-02-13] MEDS: dexAMETHasone 10mg/ml Inj IV SCH (08:44)
[2020-02-13] MEDS: Docusate 100mg cap ORAL SCH ×2 (08:44→21:08)
[2020-02-13] MEDS: Levemir Flexpen SUBQ SCH (08:46)
--- NOTE | 2020-02-13 10:15 | General Progress Note ---
Subjective Constitutional: Reports: weakness Allergies: Coded Allergies: No Known Allergies (Unverified , 02/09/20) All Systems: reviewed and negative except above Subjective o2 mask sleep Objective Last 24 Hour Vital Signs Date Time Temp Pulse Resp B/P (MAP) Pulse Ox O2 Delivery O2 Flow Rate FiO2 02/13/20 08:00 98.2 104 22 134/69 (90) 92 02/13/20 08:00 Non-Rebreather 15.0 02/13/20 08:00 15.0 100 02/13/20 07:38 114 02/13/20 04:00 98.8 89 24 124/73 (90) 95 02/13/20 04:00 15.0 100 02/13/20 04:00 Non-Rebreather 15.0 02/13/20 03:13 76 02/13/20 00:00 75 02/13/20 00:00 15.0 100 02/13/20 00:00 97.7 81 24 129/80 (96) 93 02/13/20 00:00 Non-Rebreather 15.0 02/12/20 20:00 77 02/12/20 20:00 15.0 100 02/12/20 20:00 98.4 66 24 132/82 (99) 95 02/12/20 20:00 Non-Rebreather 15.0 02/12/20 16:00 74 02/12/20 16:00 97.7 80 22 142/84 (103) 96 02/12/20 16:00 Non-Rebreather 15.0 02/12/20 16:00 15.0 100 02/12/20 12:31 77 02/12/20 12:00 Non-Rebreather 15.0 02/12/20 12:00 98.2 92 24 140/83 (102) 97 02/12/20 12:00 15.0 100 Intake and Output 02/12/20 02/13/20 19:00 07:00 Intake Total 1655 ml Output Total 1800 ml 400 ml Balance -145 ml -400 ml Intake Oral 1600 ml IV Total 55 ml Output Urine Total 1800 ml 400 ml # Voids 4 # Bowel Movements 4 Laboratory Tests 02/12/20 20:35: POC Whole Blood Glucose 269H 02/13/20 05:11: POC Whole Blood Glucose 202H 02/13/20 06:30: White Blood Count 10.9H, Red Blood Count 5.01, Hemoglobin 15.0, Hematocrit 43.3, Mean Corpuscular Volume 86, Mean Corpuscular Hemoglobin 29.9, Mean Corpuscular Hemoglobin Concent 34.6, Red Cell Distribution Width 12.6, Platelet Count 326, Mean Platelet Volume 5.5L, Neutrophils (%) (Auto) 81.8H, Lymphocytes (%) (Auto) 14.4L, Monocytes (%) (Auto) 2.6, Eosinophils (%) (Auto) 0.9, Basophils (%) (Auto) 0.3, Sodium Level 136, Potassium Level 3.5, Chloride Level 101, Carbon Dioxide Level 28, Anion Gap 7, Blood Urea Nitrogen 17, Creatinine 0.7, Estimat Glomerular Filtration Rate > 60, Glucose Level 185H, Calcium Level 8.7, Total Bilirubin 0.6, Direct Bilirubin 0.2, Aspartate Amino Transf (AST/SGOT) 26, Alanine Aminotransferase (ALT/SGPT) 51, Alkaline Phosphatase 63, C-Reactive Protein, Quantitative [Pending], Total Protein 7.2, Albumin 2.5L, Globulin 4.7, Albumin/Globulin Ratio 0.5L Height (Feet): 5 Height (Inches): 8.00 Weight (Pounds): 195 General Appearance: lethargic EENT: normal ENT inspection Neck: normal alignment Cardiovascular: normal peripheral pulses, normal rate, regular rhythm Respiratory/Chest: chest wall non-tender, lungs clear, normal breath sounds Abdomen: normal bowel sounds, non tender, soft Extremities: normal inspection Edema: no edema noted Arm (L), no edema noted Arm (R), no edema noted Leg (L), no edema noted Leg (R), no edema noted Pedal (L), no edema noted Pedal (R), no edema noted Generalized Neurologic: motor weakness Skin: normal pigmentation, warm/dry Assessment/Plan Problem List: (1) Hypoxia ICD Codes: R09.02 - Hypoxemia SNOMED: 397542692 (2) Pneumonia ICD Codes: J18.9 - Pneumonia, unspecified organism SNOMED: 153578351 (3) COVID-19 ICD Codes: U07.1 - COVID-19 SNOMED: 357342909 Status: unchanged Assessment/Plan: o2 pulm tx abx cbc bmp am Bruce Nolasco DO Feb 13, 2020 10:15
--- NOTE | 2020-02-13 11:01 | Pulmonology Progress Note ---
Subjective ROS Limited/Unobtainable: No Constitutional: Denies: fever Gastrointestinal/Abdominal: Denies: nausea Psychiatric: Denies: depression Skin: Denies: rash Musculoskeletal: Denies: pain Allergies: Coded Allergies: No Known Allergies (Unverified , 02/09/20) All Systems: reviewed and negative except above Subjective on 100 % NRM, sat 92-95 on monitor denies CP, reports dry intermittent persistent cough, + chest discomfort with cough and deep breathing started 02/08 on DEX and REM remains afebrile, no leukocytosis Objective Last 24 Hour Vital Signs Date Time Temp Pulse Resp B/P (MAP) Pulse Ox O2 Delivery O2 Flow Rate FiO2 02/13/20 08:00 98.2 104 22 134/69 (90) 92 02/13/20 08:00 Non-Rebreather 15.0 02/13/20 08:00 15.0 100 02/13/20 07:38 114 02/13/20 04:00 98.8 89 24 124/73 (90) 95 02/13/20 04:00 15.0 100 02/13/20 04:00 Non-Rebreather 15.0 02/13/20 03:13 76 02/13/20 00:00 75 02/13/20 00:00 15.0 100 02/13/20 00:00 97.7 81 24 129/80 (96) 93 02/13/20 00:00 Non-Rebreather 15.0 02/12/20 20:00 77 02/12/20 20:00 15.0 100 02/12/20 20:00 98.4 66 24 132/82 (99) 95 02/12/20 20:00 Non-Rebreather 15.0 02/12/20 16:00 74 02/12/20 16:00 97.7 80 22 142/84 (103) 96 02/12/20 16:00 Non-Rebreather 15.0 02/12/20 16:00 15.0 100 02/12/20 12:31 77 02/12/20 12:00 Non-Rebreather 15.0 02/12/20 12:00 98.2 92 24 140/83 (102) 97 02/12/20 12:00 15.0 100 Intake and Output 02/12/20 02/13/20 19:00 07:00 Intake Total 1655 ml Output Total 1800 ml 400 ml Balance -145 ml -400 ml Intake Oral 1600 ml IV Total 55 ml Output Urine Total 1800 ml 400 ml # Voids 4 # Bowel Movements 4 General Appearance: WD/WN - middle age Spanisg speaking male in mild resp distress , no acute distress HEENT: normocephalic, atraumatic, anicteric, mucous membranes moist, PERRL Respiratory: chest wall non-tender, decreased breath sounds, other - mild resp distress, tachypnea Cardiovascular: normal rate - to low tachy , regular rhythm Abdomen: normal bowel sounds, soft, non tender Extremities: no edema, pedal pulses normal Skin: no rash Neurologic: repairer screen crusher II-XII grossly normal, no motor/sensory deficits, alert, oriented x 3, responsive Musculoskeletal: normal muscle bulk Laboratory Tests 02/12/20 20:35: POC Whole Blood Glucose 269H 02/13/20 05:11: POC Whole Blood Glucose 202H 02/13/20 06:30: White Blood Count 10.9H, Red Blood Count 5.01, Hemoglobin 15.0, Hematocrit 43.3, Mean Corpuscular Volume 86, Mean Corpuscular Hemoglobin 29.9, Mean Corpuscular Hemoglobin Concent 34.6, Red Cell Distribution Width 12.6, Platelet Count 326, Mean Platelet Volume 5.5L, Neutrophils (%) (Auto) 81.8H, Lymphocytes (%) (Auto) 14.4L, Monocytes (%) (Auto) 2.6, Eosinophils (%) (Auto) 0.9, Basophils (%) (Auto) 0.3, Sodium Level 136, Potassium Level 3.5, Chloride Level 101, Carbon Dioxide Level 28, Anion Gap 7, Blood Urea Nitrogen 17, Creatinine 0.7, Estimat Glomerular Filtration Rate > 60, Glucose Level 185H, Calcium Level 8.7, Total Bilirubin 0.6, Direct Bilirubin 0.2, Aspartate Amino Transf (AST/SGOT) 26, Alanine Aminotransferase (ALT/SGPT) 51, Alkaline Phosphatase 63, C-Reactive Protein, Quantitative [Pending], Total Protein 7.2, Albumin 2.5L, Globulin 4.7, Albumin/Globulin Ratio 0.5L 02/13/20 10:51: POC Whole Blood Glucose 299H Current Medications Medications (Trade) Dose Ordered Sig/Deepa Route PRN Reason Start Time Stop Time Status Last Admin Dose Admin Acetaminophen (Tylenol) 500 mg Q6H PRN ORAL Mild Pain (Pain Scale 1-3) 02/09/20 19:30 03/10/20 19:29 Acetaminophen (Tylenol) 500 mg Q6H PRN ORAL Temp >100.5 02/09/20 19:45 03/10/20 19:44 Albuterol/ Ipratropium (Combivent Respimat) 1 puff Q6HRT INH 02/10/20 20:00 03/11/20 19:59 02/13/20 06:05 Bisacodyl (Dulcolax) 10 mg DAILYPRN PRN RECTAL Constipation 02/09/20 19:30 05/09/20 19:29 Ceftriaxone Sodium 1 gm/ Dextrose 55 ml @ 110 mls/hr Q24H IVPB 02/10/20 14:00 02/17/20 13:59 02/12/20 14:31 Dexamethasone Sodium Phosphate (Decadron 10mg/ ml Inj) 6 mg DAILY IV 02/10/20 09:00 02/19/20 09:01 02/13/20 08:44 Dextrose (Dextrose 50%) 25 ml Q30M PRN IV Hypoglycemia 02/09/20 19:30 05/09/20 19:29 Dextrose (Dextrose 50%) 50 ml Q30M PRN IV Hypoglycemia 02/09/20 19:30 05/09/20 19:29 Diphenhydramine HCl (Benadryl) 25 mg Q6H PRN ORAL Itching/Pruritis 02/09/20 19:30 03/10/20 19:29 Docusate Sodium (Colace) 100 mg EVERY 12 HOURS ORAL 02/09/20 21:00 03/10/20 20:59 02/13/20 08:44 Doxycycline Monohydrate (Doxycycline Monohydrate) 100 mg EVERY 12 HOURS ORAL 02/09/20 21:00 02/16/20 20:59 02/13/20 08:44 Enoxaparin Sodium (Lovenox) 40 mg Q24H SUBQ 02/10/20 15:00 05/10/20 14:59 02/12/20 14:32 Guaifenesin/ Dextromethorphan (Robitussin DM Syrup) 10 ml Q4H PRN ORAL For Cough 02/10/20 12:00 05/10/20 11:59 02/11/20 05:30 Hydralazine HCl (Apresoline) 10 mg Q4H PRN IV htn 02/09/20 20:30 05/09/20 20:29 Insulin Aspart (NovoLOG) BEFORE MEALS AND HS SUBQ 02/09/20 21:00 05/09/20 20:59 02/13/20 05:46 Insulin Detemir (Levemir) 5 units DAILY SUBQ 02/11/20 12:00 05/11/20 11:59 02/13/20 08:46 Magnesium Hydroxide (Mom) 30 ml HSPRN PRN ORAL Constipation 02/09/20 19:30 03/10/20 19:29 Ondansetron HCl (Zofran) 4 mg Q6H PRN IVP Nausea & Vomiting 02/09/20 19:30 03/10/20 19:29 Oxycodone HCl (Roxicodone) 5 mg Q6H PRN ORAL pain 4-10 02/09/20 19:30 02/16/20 19:29 Pantoprazole (Protonix) 40 mg DAILY ORAL 02/10/20 09:00 03/11/20 08:59 02/13/20 08:44 Polyethylene Glycol (Miralax) 17 gm DAILYPRN PRN ORAL Constipation 02/09/20 19:30 03/10/20 19:29 Prochlorperazine (Compazine) 10 mg Q6H PRN IVP Nausea & Vomiting 02/09/20 19:30 03/10/20 19:29 Remdesivir 100 mg/ Sodium Chloride 250 ml @ 250 mls/hr Q24H IV 02/10/20 21:00 02/13/20 21:59 02/12/20 20:33 Assessment/Plan Assessment/Plan ASSESSMENT/PROBLEM LIST: * COVID 19 PNEUMONIA * ACUTE HYPOXEMIC RESPIRATORY FAILURE 2/2 ABOVE * B PULMONARY INFILTRATES 2/2 ABOVE * Asthma * DM * HTN * Obesity PLAN: Day of positive test : 02/08 rapid COVID 19 + * O2- NRM ; titrate settings as tolerated * ABG noted , sat 92- 95% on monitor * Optimize pulmonary hygiene/mobilize as tolerated * Titrate down FiO2 to keep SaO2 > 90% * encourage prone position as tolerated * Dex D5 ( 02/08 -) * Rem D5 ( 1/2 -) * COMBIVENT * Monitor inflammatory markers CRP 31.9-> 133.2 -pending this am * CXR 02/11 - Bilateral infiltrates , unchanged. * Monitor volumes and renal function * DVT Px: LMWH * Venous Duplex BLE * a/tussive prn * FC * f/up with consultants recs case discussed and evaluated by supervising physician Clarissa Loera NP Feb 13, 2020 11:01
--- NOTE | 2020-02-13 11:34 | NUR ---
[employer] SI: Respiratory Failure, COVID PNA T-98.2 (ax), HR 104, RR 22, BP 134/69 15L NRM, FiO2 100% O2 sat 92% WBC 10.9 POC whole bld glucose-299, cxray 1--21 Unchanged over 3 days. Bilateral infiltrates. IS: Remdisivir IV Lovenox sq Rocephin IV Dexamethasone IV Apresoline IV admit to SDU SDU Status DCP: Pending hospitalization
[2020-02-13 12:00] VITALS: BP 140/81
--- NOTE | 2020-02-13 12:30 | NUR ---
RD ASSESSMENT & RECOMMENDATIONS SEE CARE ACTIVITY FOR COMPLETE ASSESSMENT DAILY ESTIMATED NEEDS: Needs based on Pulmonary, DM 75kg abw 25-30 kcals/kg 1800-1331 total kcals 1-1.5 g protein/kg 75-113 g total protein 25-30 mL/kg 1617-9018 total fluid mLs NUTRITION DIAGNOSIS: Altered nutrition related lab values r/t clinical status as evidenced by elev BG (185 193 257), A1C 8.2, w/ elev POC (202-299), on NRB mask, covid + pna. CURRENT DIET: [facility] PO DIET RECOMMENDATIONS: [facility] ADDITIONAL RECOMMENDATIONS: 1) Maintain calibrated bed scale wts 2) Good po intake+decadron, consider increasing insulin 3) Monitor for continued good po intake 4) Monitor resp status-> currently tolerating NRB mask. 5) Consider CCHO LOW + Double protein portions to meet kcal needs
[2020-02-13] MEDS: cefTRIAXone 1 GM in D5W 55 ML IVPB SCH (13:24)
--- NOTE | 2020-02-13 14:44 | Diagnostic Imaging Report ---
Indication: Lower extremity pain Technique: Grayscale and duplex images of the bilateral lower extremity veins Comparison: Findings: Bilaterally, grayscale and duplex images demonstrate no evidence of intraluminal thrombus. Normal phasic Doppler waveforms, demonstrating normal augmentation response and no evidence of valvular insufficiency. Greater saphenous vein(s) and tibial veins are patent. Normal compressibility. Impression: Negative for evidence of lower extremity deep venous thrombosis bilaterally
[2020-02-13] MEDS: Enoxaparin 40mg Inj SUBQ SCH (15:33)
--- NOTE | 2020-02-13 15:59 | Cardiac Electrophysiology PN ---
Assessment/Plan Assessment/Plan 1. Sinus tachycardia due to respiratory failure due to COVID-19. EKG shows sinus rhythm with right bundle-branch block. EF 65% 2. COVID-19 pneumonia. On dexamethasone, ceftriaxone and non-rebreather face mask. 3. History of hypertension, on p.r.n. IV hydralazine. 4. Diabetes, on sliding scale insulin. Subjective Subjective On 15 liter VM and 100% Fio2. EF 65% in Sinus rhythm.In Covid isolation Objective Last 24 Hour Vital Signs Date Time Temp Pulse Resp B/P (MAP) Pulse Ox O2 Delivery O2 Flow Rate FiO2 02/13/20 12:00 Non-Rebreather 15.0 02/13/20 12:00 15.0 100 02/13/20 12:00 99.9 90 22 140/81 (100) 91 02/13/20 11:46 85 02/13/20 08:00 98.2 104 22 134/69 (90) 92 02/13/20 08:00 Non-Rebreather 15.0 02/13/20 08:00 15.0 100 02/13/20 07:38 114 02/13/20 07:04 94 Non-Rebreather 15.0 100 02/13/20 07:04 98 20 94 Non-Rebreather 15.0 100 02/13/20 04:00 98.8 89 24 124/73 (90) 95 02/13/20 04:00 15.0 100 02/13/20 04:00 Non-Rebreather 15.0 02/13/20 03:13 76 02/13/20 00:00 75 02/13/20 00:00 15.0 100 02/13/20 00:00 97.7 81 24 129/80 (96) 93 02/13/20 00:00 Non-Rebreather 15.0 02/12/20 20:00 77 02/12/20 20:00 15.0 100 02/12/20 20:00 98.4 66 24 132/82 (99) 95 02/12/20 20:00 Non-Rebreather 15.0 02/12/20 16:00 74 02/12/20 16:00 97.7 80 22 142/84 (103) 96 02/12/20 16:00 Non-Rebreather 15.0 02/12/20 16:00 15.0 100 Intake and Output 02/12/20 02/13/20 19:00 07:00 Intake Total 1655 ml Output Total 1800 ml 400 ml Balance -145 ml -400 ml Intake Oral 1600 ml IV Total 55 ml Output Urine Total 1800 ml 400 ml # Voids 4 # Bowel Movements 4 Laboratory Tests Test 02/12/20 20:35 02/13/20 05:11 02/13/20 06:30 02/13/20 10:51 POC Whole Blood Glucose 269 MG/DL (74-106) H 202 MG/DL (74-106) H 299 MG/DL (74-106) H White Blood Count 10.9 K/UL (4.8-10.8) H Red Blood Count 5.01 M/UL (4.70-6.10) Hemoglobin 15.0 G/DL (14.2-18.0) Hematocrit 43.3 % (42.0-52.0) Mean Corpuscular Volume 86 FL (80-99) Mean Corpuscular Hemoglobin 29.9 PG (27.0-31.0) Mean Corpuscular Hemoglobin Concent 34.6 G/DL (32.0-36.0) Red Cell Distribution Width 12.6 % (11.6-14.8) Platelet Count 326 K/UL (150-450) Mean Platelet Volume 5.5 FL (6.5-10.1) L Neutrophils (%) (Auto) 81.8 % (45.0-75.0) H Lymphocytes (%) (Auto) 14.4 % (20.0-45.0) L Monocytes (%) (Auto) 2.6 % (1.0-10.0) Eosinophils (%) (Auto) 0.9 % (0.0-3.0) Basophils (%) (Auto) 0.3 % (0.0-2.0) Sodium Level 136 MMOL/L (136-145) Potassium Level 3.5 MMOL/L (3.5-5.1) Chloride Level 101 MMOL/L (98-107) Carbon Dioxide Level 28 MMOL/L (21-32) Anion Gap 7 mmol/L (5-15) Blood Urea Nitrogen 17 mg/dL (7-18) Creatinine 0.7 MG/DL (0.55-1.30) Estimat Glomerular Filtration Rate > 60 mL/min (>60) Glucose Level 185 MG/DL (74-106) H Calcium Level 8.7 MG/DL (8.5-10.1) Total Bilirubin 0.6 MG/DL (0.2-1.0) Direct Bilirubin 0.2 MG/DL (0.0-0.3) Aspartate Amino Transf (AST/SGOT) 26 U/L (15-37) Alanine Aminotransferase (ALT/SGPT) 51 U/L (12-78) Alkaline Phosphatase 63 U/L (46-116) C-Reactive Protein, Quantitative Pending Total Protein 7.2 G/DL (6.4-8.2) Albumin 2.5 G/DL (3.4-5.0) L Globulin 4.7 g/dL Albumin/Globulin Ratio 0.5 (1.0-2.7) L Objective HEAD AND NECK: no JVD.VM is on LUNGS: Coarse rhonchi. CARDIOVASCULAR: regular S1 and S2 and tachycardic. ABDOMEN: Soft. EXTREMITIES: No pitting edema. Kiko Rubalcava MD Feb 13, 2020 15:59
[2020-02-13 16:00] VITALS: BP 127/78
--- NOTE | 2020-02-13 19:20 | NUR ---
NURSE HAND-OFF REPORT: Important Events on Shift: stable Patient Status: Diet: Pending Orders: Pending Results/Labs: Pending MD notification: Latest Vital Signs: Temperature 98.4 , Pulse 80 , B/P 127 /78 , Respiratory Rate 20 , O2 SAT 94 , Non-Rebreather, O2 Flow Rate 15.0 . Vital Sign Comment: EKG Rhythm: Sinus Rhythm Rhythm change?: N MD Notified?: Jw Oneil MD Response: No New Orders Received Latest [place] Fall Score: 45 Fall Risk: High Risk Safety Measures: Call light Within Reach, Bed Alarm Zone 1, Side Rails Side Rails x2, Bed position Low and Locked. Fall Precautions: Yellow Socks Patient Fall Education Report given to [employer].
--- NOTE | 2020-02-13 19:21 | Cardiology Report ---
APPROVED REPORT EXAM: Two-dimensional and M-mode echocardiogram with Doppler and color Doppler. INDICATION Congestive Heart Failure M-Mode DIMENSIONS IVSd1.1 (0.7-1.1cm)Left Atrium (MM)3.9 (1.6-4.0cm) LVDd4.3 (3.5-5.6cm)Aortic Root3.5 (2.0-3.7cm) PWd1.1 (0.7-1.1cm)Aortic Cusp Exc.1.9 (1.5-2.0cm) IVSs2.0 cmEPSS0.6 (>1.0cm) LVDs2.8 (2.5-4.0cm) PWs1.2 cm <Conclusion> Technically difficult study due to poor acoustical windows. Normal left ventricular chamber size, systolic function and wall motion to extent visualized. Left ventricular ejection fraction estimated to be 65 %. Small pericardial effusion. Mild right ventricular chamber size. Focal aortic valve sclerosis with adequate cusp excursion. Thickened mitral valve leaflets with normal excursion. Mitral annulus and aortic root calcification. Normal pulmonic valve structure. Normal tricuspid valve structure. IVC view is not obtainable due to pt's GI tube. A color flow and spectral Doppler study was performed and revealed: Trace mitral regurgitation. Mitral diastolic velocities suggest reduced left ventricular relaxation c/w mild LV diastolic dysfunction (Grade I ). Trace tricuspid regurgitation. Tricuspid systolic velocities suggests peak right ventricular systolic pressure of 20 mmHg. Pulmonic regurgitation present.
--- NOTE | 2020-02-13 19:25 | NUR ---
NURSE NOTES: Received pt and report from SHARIF Weinstein. Observed pt resting in bed with both eyes open. Pt is A/Ox4. 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 IV site intact, asymptomatic, and patent. Pt is on a non-breather mask at 15L, FiO2 100%; sating at 94%. Bed is in the lowest position and locked. Call light and bedside table is within reach. No signs/symptoms of acute distress noted. Will continue plan of care.
--- NOTE | 2020-02-13 19:33 | Cardiology Report ---
APPROVED REPORT EKG Measurement Heart [id number] <Conclusion> Normal sinus rhythm Nonspecific T wave abnormality Abnormal ECG
--- NOTE | 2020-02-13 19:34 | Cardiology Report ---
APPROVED REPORT EKG Measurement Heart [id number] <Conclusion> Normal sinus rhythm Incomplete right bundle branch block Nonspecific T wave abnormality Abnormal ECG
[2020-02-13 20:00] VITALS: BP 131/77
[2020-02-13] MEDS: Maintenance Dose:Remdesivir 100mg/NS 230ml x 4 Doses IV SCH ×2 (21:06)
[2020-02-13] MEDS: guaiFENesin /DM 10ml syrup ORAL PRN (21:08)
[2020-02-14] VITALS: BP 129/75
--- NOTE | 2020-02-14 01:17 | NUR ---
NURSE NOTES: Observed pt asleep in bed. Pt continues to be on non-rebreather at 15LPM, FiO2 100%; sating at 94%. No distress noted. Will continue plan of care.
[2020-02-14 04:00] VITALS: BP 137/72
[2020-02-14] MEDS: NovoLOG Insulin Flexpen SUBQ SCH ×4 (05:59→21:16)
[2020-02-14 06:49] LABS: ANION GAP 8 mmol/L (5-15); BLOOD UREA NITROGEN 17 mg/dL (7-18); CALCIUM 8.9 MG/DL (8.5-10.1); CARBON DIOXIDE 27 MMOL/L (21-32); CHLORIDE 101 MMOL/L (98-107); CREATININE 0.6 MG/DL (0.55-1.30); POTASSIUM 3.5 MMOL/L (3.5-5.1); SODIUM 136 MMOL/L (136-145)
[2020-02-14 06:55] LABS: BASOPHILS % (AUTO) 0.4 % (0.0-2.0); EOSINOPHILS % (AUTO) 1.1 % (0.0-3.0); HEMATOCRIT 43.9 % (42.0-52.0); HEMOGLOBIN 14.7 G/DL (14.2-18.0); LYMPHOCYTES % (AUTO) 11.7 % (20.0-45.0); MEAN CORPUSCULAR VOLUME 90 FL (80-99); MONOCYTES % (AUTO) 3.1 % (1.0-10.0); NEUTROPHILS % (AUTO) 83.8 % (45.0-75.0); PLATELET COUNT 322 K/UL (150-450); RED CELL DISTRIBUTION WIDTH 11.6 % (11.6-14.8)
--- NOTE | 2020-02-14 07:22 | NUR ---
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 Pt continues to be on non-breather at 15LPM O2, FiO2 100%; sating at 93-95%. Patient Status: Stable Diet: CCHO (M) Pending Orders: N Pending Results/Labs: AM Labs Pending MD notification: N Latest Vital Signs: Temperature 98.8 , Pulse 86 , B/P 137 /72 , Respiratory Rate 22 , O2 SAT 95 , Non-Rebreather, O2 Flow Rate 15.0 . EKG Rhythm: Sinus Rhythm Rhythm change?: N Latest [place] Fall Score: 45 Fall Risk: High Risk Safety Measures: Call light Within Reach, Bed Alarm Zone 1, Side Rails Side Rails x2, Bed position Low and Locked. Fall Precautions: Yellow Socks Patient Fall Education Report given to SHARIF Diaz.
--- NOTE | 2020-02-14 07:31 | NUR ---
Nursing Note: Pt received from Mine RN. pt in bed awake and resting. bed low and locked, call light within reach. on non rebreather at 15 liters. no complaint of pain or distress.
[2020-02-14 08:00] VITALS: BP 131/74
[2020-02-14] MEDS: dexAMETHasone 10mg/ml Inj IV SCH (08:42)
[2020-02-14] MEDS: Doxycycline Monohydrate 100mg ORAL SCH ×2 (08:42→19:59)
[2020-02-14] MEDS: Docusate 100mg cap ORAL SCH ×2 (08:42→19:59)
[2020-02-14] MEDS: Acetaminophen 500mg (ES) tab ORAL PRN ×2 (08:43→16:37)
[2020-02-14] MEDS: Levemir Flexpen SUBQ SCH (09:15)
--- NOTE | 2020-02-14 09:16 | General Progress Note ---
Subjective Constitutional: Reports: weakness Allergies: Coded Allergies: No Known Allergies (Unverified , 02/09/20) All Systems: reviewed and negative except above Subjective o2 mask sleep Objective Last 24 Hour Vital Signs Date Time Temp Pulse Resp B/P (MAP) Pulse Ox O2 Delivery O2 Flow Rate FiO2 02/14/20 08:00 Non-Rebreather 15.0 02/14/20 08:00 101.8 93 22 131/74 (93) 93 02/14/20 07:40 94 Non-Rebreather 15.0 100 02/14/20 07:40 97 18 94 Non-Rebreather 15.0 100 02/14/20 04:00 86 02/14/20 04:00 98.8 89 22 137/72 (93) 95 02/14/20 04:00 15.0 100 02/14/20 04:00 Non-Rebreather 15.0 02/14/20 00:00 Non-Rebreather 15.0 02/14/20 00:00 76 02/14/20 00:00 98.1 80 22 129/75 (93) 93 02/13/20 21:00 90 02/13/20 20:00 99.1 83 20 131/77 (95) 93 02/13/20 20:00 15.0 100 02/13/20 20:00 Non-Rebreather 15.0 02/13/20 19:15 94 Non-Rebreather 15.0 100 02/13/20 19:15 80 20 95 Non-Rebreather 15.0 100 02/13/20 16:00 98.4 87 20 127/78 (94) 95 02/13/20 16:00 Non-Rebreather 15.0 02/13/20 16:00 15.0 100 02/13/20 15:21 81 02/13/20 12:00 Non-Rebreather 15.0 02/13/20 12:00 15.0 100 02/13/20 12:00 99.9 90 22 140/81 (100) 91 02/13/20 11:46 85 l Intake and Output 02/13/20 02/14/20 19:00 07:00 Intake Total 1255 ml 650 ml Output Total 1500 ml 800 ml Balance -245 ml -150 ml Intake Oral 1200 ml 650 ml IV Total 55 ml Output Urine Total 1500 ml 800 ml # Voids 3 # Bowel Movements 2 Laboratory Tests 02/13/20 10:51: POC Whole Blood Glucose 299H 02/13/20 15:57: POC Whole Blood Glucose 303H 02/13/20 20:21: POC Whole Blood Glucose [Pending] 02/14/20 05:35: White Blood Count 12.0H, Red Blood Count 4.90, Hemoglobin 14.7, Hematocrit 43.9, Mean Corpuscular Volume 90, Mean Corpuscular Hemoglobin 30.1, Mean Corpuscular Hemoglobin Concent 33.5, Red Cell Distribution Width 11.6, Platelet Count 322, Mean Platelet Volume 5.6L, Neutrophils (%) (Auto) 83.8H, Lymphocytes (%) (Auto) 11.7L, Monocytes (%) (Auto) 3.1, Eosinophils (%) (Auto) 1.1, Basophils (%) (Auto) 0.4, Sodium Level 136, Potassium Level 3.5, Chloride Level 101, Carbon Dioxide Level 27, Anion Gap 8, Blood Urea Nitrogen 17, Creatinine 0.6, Estimat Glomerular Filtration Rate > 60, Glucose Level 196H, Calcium Level 8.9 02/14/20 05:53: POC Whole Blood Glucose 180H Height (Feet): 5 Height (Inches): 8.00 Weight (Pounds): 195 General Appearance: lethargic EENT: normal ENT inspection Neck: normal alignment Cardiovascular: normal peripheral pulses, normal rate, regular rhythm Respiratory/Chest: chest wall non-tender, lungs clear, normal breath sounds Abdomen: normal bowel sounds, non tender, no organomegaly Extremities: normal inspection Edema: no edema noted Arm (L), no edema noted Arm (R), no edema noted Leg (L), no edema noted Leg (R), no edema noted Pedal (L), no edema noted Pedal (R), no edema noted Generalized Neurologic: motor weakness Skin: normal pigmentation, warm/dry Assessment/Plan Problem List: (1) Hypoxia ICD Codes: R09.02 - Hypoxemia SNOMED: 581583367 (2) Pneumonia ICD Codes: J18.9 - Pneumonia, unspecified organism SNOMED: 322110202 (3) COVID-19 ICD Codes: U07.1 - COVID-19 SNOMED: 291434691 Status: unchanged Assessment/Plan: o2 pulm tx abx cbc bmp am Bruce Nolasco DO Feb 14, 2020 09:16
--- NOTE | 2020-02-14 11:58 | NUR ---
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
[2020-02-14 12:00] VITALS: BP 138/80
--- NOTE | 2020-02-14 12:51 | Pulmonology Progress Note ---
Subjective ROS Limited/Unobtainable: No Allergies: Coded Allergies: No Known Allergies (Unverified , 02/09/20) All Systems: reviewed and negative except above Subjective on 100 % NRM, sat 93-100 % reports some improvement in breathing denies CP, reports dry intermittent persistent cough, + chest discomfort with cough and deep breathing low grade fever, leukocytosis Objective Last 24 Hour Vital Signs Date Time Temp Pulse Resp B/P (MAP) Pulse Ox O2 Delivery O2 Flow Rate FiO2 02/14/20 12:00 Non-Rebreather 15.0 02/14/20 12:00 99.9 83 22 138/80 (99) 100 02/14/20 12:00 83 02/14/20 09:13 100.0 02/14/20 08:00 79 02/14/20 08:00 Non-Rebreather 15.0 02/14/20 08:00 101.8 93 22 131/74 (93) 93 02/14/20 07:40 94 Non-Rebreather 15.0 100 02/14/20 07:40 97 18 94 Non-Rebreather 15.0 100 02/14/20 04:00 86 02/14/20 04:00 98.8 89 22 137/72 (93) 95 02/14/20 04:00 15.0 100 02/14/20 04:00 Non-Rebreather 15.0 02/14/20 00:00 Non-Rebreather 15.0 02/14/20 00:00 76 02/14/20 00:00 98.1 80 22 129/75 (93) 93 02/13/20 21:00 90 02/13/20 20:00 99.1 83 20 131/77 (95) 93 02/13/20 20:00 15.0 100 02/13/20 20:00 Non-Rebreather 15.0 02/13/20 19:15 94 Non-Rebreather 15.0 100 02/13/20 19:15 80 20 95 Non-Rebreather 15.0 100 02/13/20 16:00 98.4 87 20 127/78 (94) 95 02/13/20 16:00 Non-Rebreather 15.0 02/13/20 16:00 15.0 100 02/13/20 15:21 81 Intake and Output 02/13/20 02/14/20 19:00 07:00 Intake Total 1255 ml 650 ml Output Total 1500 ml 800 ml Balance -245 ml -150 ml Intake Oral 1200 ml 650 ml IV Total 55 ml Output Urine Total 1500 ml 800 ml # Voids 3 # Bowel Movements 2 General Appearance: WD/WN - middle age Spanisg speaking male in mild resp distress , no acute distress HEENT: normocephalic, atraumatic, anicteric, mucous membranes moist, PERRL Respiratory: chest wall non-tender, decreased breath sounds, other - mild resp distress, tachypnea Cardiovascular: normal rate - to low tachy , regular rhythm Abdomen: normal bowel sounds, soft, non tender Extremities: no edema, pedal pulses normal Skin: no rash 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, no motor/sensory deficits, alert, oriented x 3, responsive Musculoskeletal: normal muscle bulk Laboratory Tests 02/13/20 15:57: POC Whole Blood Glucose 303H 02/13/20 20:21: POC Whole Blood Glucose [Pending] 02/14/20 05:35: White Blood Count 12.0H, Red Blood Count 4.90, Hemoglobin 14.7, Hematocrit 43.9, Mean Corpuscular Volume 90, Mean Corpuscular Hemoglobin 30.1, Mean Corpuscular Hemoglobin Concent 33.5, Red Cell Distribution Width 11.6, Platelet Count 322, Mean Platelet Volume 5.6L, Neutrophils (%) (Auto) 83.8H, Lymphocytes (%) (Auto) 11.7L, Monocytes (%) (Auto) 3.1, Eosinophils (%) (Auto) 1.1, Basophils (%) (Auto) 0.4, Sodium Level 136, Potassium Level 3.5, Chloride Level 101, Carbon Dioxide Level 27, Anion Gap 8, Blood Urea Nitrogen 17, Creatinine 0.6, Estimat Glomerular Filtration Rate > 60, Glucose Level 196H, Calcium Level 8.9 02/14/20 05:53: POC Whole Blood Glucose 180H Current Medications Medications (Trade) Dose Ordered Sig/Deepa Route PRN Reason Start Time Stop Time Status Last Admin Dose Admin Acetaminophen (Tylenol) 500 mg Q6H PRN ORAL Mild Pain (Pain Scale 1-3) 02/09/20 19:30 03/10/20 19:29 Acetaminophen (Tylenol) 500 mg Q6H PRN ORAL Temp >100.5 02/09/20 19:45 03/10/20 19:44 02/14/20 08:43 Albuterol/ Ipratropium (Combivent Respimat) 1 puff Q6HRT INH 02/10/20 20:00 03/11/20 19:59 02/14/20 07:21 Bisacodyl (Dulcolax) 10 mg DAILYPRN PRN RECTAL Constipation 02/09/20 19:30 05/09/20 19:29 Ceftriaxone Sodium 1 gm/ Dextrose 55 ml @ 110 mls/hr Q24H IVPB 02/10/20 14:00 02/17/20 13:59 02/13/20 13:24 Dexamethasone Sodium Phosphate (Decadron 10mg/ ml Inj) 6 mg DAILY IV 02/10/20 09:00 02/19/20 09:01 02/14/20 08:42 Dextrose (Dextrose 50%) 25 ml Q30M PRN IV Hypoglycemia 02/09/20 19:30 05/09/20 19:29 Dextrose (Dextrose 50%) 50 ml Q30M PRN IV Hypoglycemia 02/09/20 19:30 05/09/20 19:29 Diphenhydramine HCl (Benadryl) 25 mg Q6H PRN ORAL Itching/Pruritis 02/09/20 19:30 03/10/20 19:29 Docusate Sodium (Colace) 100 mg EVERY 12 HOURS ORAL 02/09/20 21:00 03/10/20 20:59 02/14/20 08:42 Doxycycline Monohydrate (Doxycycline Monohydrate) 100 mg EVERY 12 HOURS ORAL 02/09/20 21:00 02/16/20 20:59 02/14/20 08:42 Enoxaparin Sodium (Lovenox) 40 mg Q24H SUBQ 02/10/20 15:00 05/10/20 14:59 02/13/20 15:33 Guaifenesin/ Dextromethorphan (Robitussin DM Syrup) 10 ml Q4H PRN ORAL For Cough 02/10/20 12:00 05/10/20 11:59 02/13/20 21:08 Hydralazine HCl (Apresoline) 10 mg Q4H PRN IV htn 02/09/20 20:30 05/09/20 20:29 Insulin Aspart (NovoLOG) BEFORE MEALS AND HS SUBQ 02/09/20 21:00 05/09/20 20:59 02/14/20 11:12 Insulin Detemir (Levemir) 5 units DAILY SUBQ 02/11/20 12:00 05/11/20 11:59 02/14/20 09:15 Magnesium Hydroxide (Mom) 30 ml HSPRN PRN ORAL Constipation 02/09/20 19:30 03/10/20 19:29 Ondansetron HCl (Zofran) 4 mg Q6H PRN IVP Nausea & Vomiting 02/09/20 19:30 03/10/20 19:29 Oxycodone HCl (Roxicodone) 5 mg Q6H PRN ORAL pain 4-10 02/09/20 19:30 02/16/20 19:29 Pantoprazole (Protonix) 40 mg DAILY ORAL 02/10/20 09:00 03/11/20 08:59 02/14/20 08:42 Polyethylene Glycol (Miralax) 17 gm DAILYPRN PRN ORAL Constipation 02/09/20 19:30 03/10/20 19:29 Prochlorperazine (Compazine) 10 mg Q6H PRN IVP Nausea & Vomiting 02/09/20 19:30 03/10/20 19:29 Assessment/Plan Assessment/Plan ASSESSMENT/PROBLEM LIST: * COVID 19 PNEUMONIA * ACUTE HYPOXEMIC RESPIRATORY FAILURE 2/2 ABOVE * B PULMONARY INFILTRATES 2/2 ABOVE * Asthma * DM * HTN * Obesity PLAN: Day of positive test : 02/08 rapid COVID 19 + * O2- NRM ; titrate settings as tolerated * ABG noted , sat 92- 95% on monitor * Optimize pulmonary hygiene/mobilize as tolerated * Titrate down FiO2 to keep SaO2 > 90% * encourage prone position as tolerated * Dex D6 ( 1/2 -) * s/p Rem x 5 days * COMBIVENT * Monitor inflammatory markers CRP 31.9-> 133.2 - 38.3 * CXR 02/11 - Bilateral infiltrates , unchanged. * Monitor volumes and renal function * DVT Px: LMWH * Venous Duplex BLE NGT * a/tussive prn * FC * f/up with consultants recs case discussed and evaluated by supervising physician Clarissa Loera NP Feb 14, 2020 12:51 Mikal Malagon MD Feb 14, 2020 17:27
[2020-02-14] MEDS: cefTRIAXone 1 GM in D5W 55 ML IVPB SCH (13:15)
--- NOTE | 2020-02-14 13:33 | NUR ---
RESPIRATORY THERAPY NOTES Patient received on NRB 100% FiO2; SpO2 98% HR 77. @1325 patient placed on 50% venti mask @ 10LPM and is tolerating well at this time. SpO2 94% HR 78. Will continue to monitor.
[2020-02-14] MEDS ORDERED: NS 275ml ONE (14:07)
[2020-02-14] MEDS: Enoxaparin 40mg Inj SUBQ SCH (15:32)
[2020-02-14 16:00] VITALS: BP 138/81
--- NOTE | 2020-02-14 16:19 | Cardiac Electrophysiology PN ---
Assessment/Plan Assessment/Plan 1. Sinus tachycardia due to respiratory failure due to COVID-19. EKG sinus rhythm with right bundle-branch block. EF 65% 2. COVID-19 pneumonia. On dexamethasone, ceftriaxone and non-rebreather face mask. 3. History of hypertension, on p.r.n. IV hydralazine. 4. Diabetes, on sliding scale insulin. Subjective Subjective On 10 liter VM and 100% Fio2. EF 65% in Sinus rhythm.In Covid isolation Objective Last 24 Hour Vital Signs Date Time Temp Pulse Resp B/P (MAP) Pulse Ox O2 Delivery O2 Flow Rate FiO2 02/14/20 16:00 Venturi Mask 10.0 02/14/20 16:00 85 02/14/20 16:00 100.2 90 22 138/81 (100) 95 02/14/20 13:29 93 Venturi Mask 10.0 50 02/14/20 12:00 Non-Rebreather 15.0 02/14/20 12:00 99.9 83 22 138/80 (99) 100 02/14/20 12:00 83 02/14/20 09:13 100.0 02/14/20 08:00 79 02/14/20 08:00 Non-Rebreather 15.0 02/14/20 08:00 101.8 93 22 131/74 (93) 93 02/14/20 07:40 94 Non-Rebreather 15.0 100 02/14/20 07:40 97 18 94 Non-Rebreather 15.0 100 02/14/20 04:00 86 02/14/20 04:00 98.8 89 22 137/72 (93) 95 02/14/20 04:00 15.0 100 02/14/20 04:00 Non-Rebreather 15.0 02/14/20 00:00 Non-Rebreather 15.0 02/14/20 00:00 76 02/14/20 00:00 98.1 80 22 129/75 (93) 93 02/13/20 21:00 90 02/13/20 20:00 99.1 83 20 131/77 (95) 93 02/13/20 20:00 15.0 100 02/13/20 20:00 Non-Rebreather 15.0 02/13/20 19:15 94 Non-Rebreather 15.0 100 02/13/20 19:15 80 20 95 Non-Rebreather 15.0 100 Intake and Output 02/13/20 02/14/20 19:00 07:00 Intake Total 1255 ml 650 ml Output Total 1500 ml 800 ml Balance -245 ml -150 ml Intake Oral 1200 ml 650 ml IV Total 55 ml Output Urine Total 1500 ml 800 ml # Voids 3 # Bowel Movements 2 Laboratory Tests Test 02/13/20 20:21 02/14/20 05:35 02/14/20 05:53 POC Whole Blood Glucose Pending 180 MG/DL (74-106) H White Blood Count 12.0 K/UL (4.8-10.8) H Red Blood Count 4.90 M/UL (4.70-6.10) Hemoglobin 14.7 G/DL (14.2-18.0) Hematocrit 43.9 % (42.0-52.0) Mean Corpuscular Volume 90 FL (80-99) Mean Corpuscular Hemoglobin 30.1 PG (27.0-31.0) Mean Corpuscular Hemoglobin Concent 33.5 G/DL (32.0-36.0) Red Cell Distribution Width 11.6 % (11.6-14.8) Platelet Count 322 K/UL (150-450) Mean Platelet Volume 5.6 FL (6.5-10.1) L Neutrophils (%) (Auto) 83.8 % (45.0-75.0) H Lymphocytes (%) (Auto) 11.7 % (20.0-45.0) L Monocytes (%) (Auto) 3.1 % (1.0-10.0) Eosinophils (%) (Auto) 1.1 % (0.0-3.0) Basophils (%) (Auto) 0.4 % (0.0-2.0) Sodium Level 136 MMOL/L (136-145) Potassium Level 3.5 MMOL/L (3.5-5.1) Chloride Level 101 MMOL/L (98-107) Carbon Dioxide Level 27 MMOL/L (21-32) Anion Gap 8 mmol/L (5-15) Blood Urea Nitrogen 17 mg/dL (7-18) Creatinine 0.6 MG/DL (0.55-1.30) Estimat Glomerular Filtration Rate > 60 mL/min (>60) Glucose Level 196 MG/DL (74-106) H Calcium Level 8.9 MG/DL (8.5-10.1) Objective HEAD AND NECK: no JVD.VM is on LUNGS: Coarse rhonchi. CARDIOVASCULAR: regular S1 and S2 and tachycardic. ABDOMEN: Soft. EXTREMITIES: No pitting edema. Kiko Rubalcava MD Feb 14, 2020 16:18
--- NOTE | 2020-02-14 16:27 | NUR ---
NURSE NOTES: Per Dr. Root ok to give tylenol at 100.2 temp. also applied cooling measures.
--- NOTE | 2020-02-14 16:35 | Infectious Diseases Prog Note ---
Assessment/Plan Assessment/Plan ASSESSMENT AND PLAN: 1. covid-19 virus infection, pna, ? CAP, hypoxia, fevers leukocytosis secondary to steroids - dexamethasone and remdesivir - ceftriaxone and doxycycline - monitor hypoxia, labs and chest x-ray 2. Diabetes. 3. No history of hypertension. 4. Blood sugar treatment per primary medical team. 5. Continue treatment per primary consultants. 6. No known drug allergies. 7. Social history is negative. 8. Family history is noncontributory. 9. MAR is noted. 10. Case was discussed with RN. Subjective Constitutional: Reports: fever, fatigue, other - less sob per patient HEENT: Reports: congestion Respiratory: Reports: shortness of breath Cardiovascular: Denies: chest pain Gastrointestinal/Abdominal: Denies: nausea, vomiting, diarrhea Genitourinary: Reports: other - no savage Neurologic: Denies: headache Psychiatric: Denies: depression Skin: Denies: rash Hematologic: Denies: bleeding Musculoskeletal: Denies: pain Allergies: Coded Allergies: No Known Allergies (Unverified , 02/09/20) Objective Last 24 Hour Vital Signs Date Time Temp Pulse Resp B/P (MAP) Pulse Ox O2 Delivery O2 Flow Rate FiO2 02/14/20 16:00 Venturi Mask 10.0 02/14/20 16:00 85 02/14/20 16:00 100.2 90 22 138/81 (100) 95 02/14/20 13:29 93 Venturi Mask 10.0 50 02/14/20 12:00 Non-Rebreather 15.0 02/14/20 12:00 99.9 83 22 138/80 (99) 100 02/14/20 12:00 83 02/14/20 09:13 100.0 02/14/20 08:00 79 02/14/20 08:00 Non-Rebreather 15.0 02/14/20 08:00 101.8 93 22 131/74 (93) 93 02/14/20 07:40 94 Non-Rebreather 15.0 100 02/14/20 07:40 97 18 94 Non-Rebreather 15.0 100 02/14/20 04:00 86 02/14/20 04:00 98.8 89 22 137/72 (93) 95 02/14/20 04:00 15.0 100 02/14/20 04:00 Non-Rebreather 15.0 02/14/20 00:00 Non-Rebreather 15.0 02/14/20 00:00 76 02/14/20 00:00 98.1 80 22 129/75 (93) 93 02/13/20 21:00 90 02/13/20 20:00 99.1 83 20 131/77 (95) 93 02/13/20 20:00 15.0 100 02/13/20 20:00 Non-Rebreather 15.0 02/13/20 19:15 94 Non-Rebreather 15.0 100 02/13/20 19:15 80 20 95 Non-Rebreather 15.0 100 Height (Feet): 5 Height (Inches): 8.00 Weight (Pounds): 195 General Appearance: no acute distress HEENT: normocephalic, atraumatic, anicteric Respiratory/Chest: crackles/rales, rhonchi - bilaterally Cardiovascular: normal rate, regular rhythm, no gallop/murmur Abdomen: normal bowel sounds, soft, non tender, no organomegaly, non distended Genitourinary: other - no savage Extremities: no cyanosis Skin: no rash 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 Upper limits normal heart size. Impression: Unchanged, over 3 days, findings as above. Microbiology Date/Time Source Procedure Growth Status 02/09/20 14:10 Nasopharynx SARS-CoV-2 RdRp Gene Assay - Final Complete 02/09/20 14:10 Blood Blood Culture - Preliminary NO GROWTH AFTER 48 HOURS Resulted Laboratory Tests Test 02/13/20 20:21 02/14/20 05:35 02/14/20 05:53 POC Whole Blood Glucose Pending 180 MG/DL (74-106) H White Blood Count 12.0 K/UL (4.8-10.8) H Red Blood Count 4.90 M/UL (4.70-6.10) Hemoglobin 14.7 G/DL (14.2-18.0) Hematocrit 43.9 % (42.0-52.0) Mean Corpuscular Volume 90 FL (80-99) Mean Corpuscular Hemoglobin 30.1 PG (27.0-31.0) Mean Corpuscular Hemoglobin Concent 33.5 G/DL (32.0-36.0) Red Cell Distribution Width 11.6 % (11.6-14.8) Platelet Count 322 K/UL (150-450) Mean Platelet Volume 5.6 FL (6.5-10.1) L Neutrophils (%) (Auto) 83.8 % (45.0-75.0) H Lymphocytes (%) (Auto) 11.7 % (20.0-45.0) L Monocytes (%) (Auto) 3.1 % (1.0-10.0) Eosinophils (%) (Auto) 1.1 % (0.0-3.0) Basophils (%) (Auto) 0.4 % (0.0-2.0) Sodium Level 136 MMOL/L (136-145) Potassium Level 3.5 MMOL/L (3.5-5.1) Chloride Level 101 MMOL/L (98-107) Carbon Dioxide Level 27 MMOL/L (21-32) Anion Gap 8 mmol/L (5-15) Blood Urea Nitrogen 17 mg/dL (7-18) Creatinine 0.6 MG/DL (0.55-1.30) Estimat Glomerular Filtration Rate > 60 mL/min (>60) Glucose Level 196 MG/DL (74-106) H Calcium Level 8.9 MG/DL (8.5-10.1) Current Medications Medications (Trade) Dose Ordered Sig/Deepa Route PRN Reason Start Time Stop Time Status Last Admin Dose Admin Acetaminophen (Tylenol) 500 mg Q6H PRN ORAL Mild Pain (Pain Scale 1-3) 02/09/20 19:30 03/10/20 19:29 Acetaminophen (Tylenol) 500 mg Q6H PRN ORAL Temp >100.5 02/09/20 19:45 03/10/20 19:44 02/14/20 08:43 Albuterol/ Ipratropium (Combivent Respimat) 1 puff Q6HRT INH 02/10/20 20:00 03/11/20 19:59 02/14/20 13:14 Bisacodyl (Dulcolax) 10 mg DAILYPRN PRN RECTAL Constipation 02/09/20 19:30 05/09/20 19:29 Ceftriaxone Sodium 1 gm/ Dextrose 55 ml @ 110 mls/hr Q24H IVPB 02/10/20 14:00 02/17/20 13:59 02/14/20 13:15 Dexamethasone Sodium Phosphate (Decadron 10mg/ ml Inj) 6 mg DAILY IV 02/10/20 09:00 02/19/20 09:01 02/14/20 08:42 Dextrose (Dextrose 50%) 25 ml Q30M PRN IV Hypoglycemia 02/09/20 19:30 05/09/20 19:29 Dextrose (Dextrose 50%) 50 ml Q30M PRN IV Hypoglycemia 02/09/20 19:30 05/09/20 19:29 Diphenhydramine HCl (Benadryl) 25 mg Q6H PRN ORAL Itching/Pruritis 02/09/20 19:30 03/10/20 19:29 Docusate Sodium (Colace) 100 mg EVERY 12 HOURS ORAL 02/09/20 21:00 03/10/20 20:59 02/14/20 08:42 Doxycycline Monohydrate (Doxycycline Monohydrate) 100 mg EVERY 12 HOURS ORAL 02/09/20 21:00 02/16/20 20:59 02/14/20 08:42 Enoxaparin Sodium (Lovenox) 40 mg Q24H SUBQ 02/10/20 15:00 05/10/20 14:59 02/14/20 15:32 Guaifenesin/ Dextromethorphan (Robitussin DM Syrup) 10 ml Q4H PRN ORAL For Cough 02/10/20 12:00 05/10/20 11:59 02/13/20 21:08 Hydralazine HCl (Apresoline) 10 mg Q4H PRN IV htn 02/09/20 20:30 05/09/20 20:29 Insulin Aspart (NovoLOG) BEFORE MEALS AND HS SUBQ 02/09/20 21:00 05/09/20 20:59 02/14/20 11:12 Insulin Detemir (Levemir) 5 units DAILY SUBQ 02/11/20 12:00 05/11/20 11:59 02/14/20 09:15 Magnesium Hydroxide (Mom) 30 ml HSPRN PRN ORAL Constipation 02/09/20 19:30 03/10/20 19:29 Ondansetron HCl (Zofran) 4 mg Q6H PRN IVP Nausea & Vomiting 02/09/20 19:30 03/10/20 19:29 Oxycodone HCl (Roxicodone) 5 mg Q6H PRN ORAL pain 4-10 02/09/20 19:30 02/16/20 19:29 Pantoprazole (Protonix) 40 mg DAILY ORAL 02/10/20 09:00 03/11/20 08:59 02/14/20 08:42 Polyethylene Glycol (Miralax) 17 gm DAILYPRN PRN ORAL Constipation 02/09/20 19:30 03/10/20 19:29 Prochlorperazine (Compazine) 10 mg Q6H PRN IVP Nausea & Vomiting 02/09/20 19:30 03/10/20 19:29 Sonia Jade MD Feb 14, 2020 16:35
--- NOTE | 2020-02-14 19:20 | NUR ---
NURSE NOTES: Received report from SHARIF Diaz. Pt is A/Ox4 and vebally responsive most in [place]. monitoring coordinator showing NSR. PT has IV site Lw 22G which is intact and patent. Pt is on a non-breather mask at 10L, FiO2 50% with saturation at 94%. Bed is in the lowest position with siderails x 2 and locked. Call light and bedside table is within reach. No signs/symptoms of acute distress noted. Will continue plan of care.
--- NOTE | 2020-02-14 19:27 | NUR ---
NURSE HAND-OFF REPORT: Important Events on Shift:[2 fevers, both reduced with tylenol and cooling measures. ] Patient Status: [full code] Diet: [CCHO m] Pending Orders: [] Pending Results/Labs:[] Pending MD notification:[] Latest Vital Signs: Temperature 99.7 , Pulse 85 , B/P 138 /81 , Respiratory Rate 22 , O2 SAT 95 , Non-Rebreather, O2 Flow Rate 10.0 . Vital Sign Comment: [] EKG Rhythm: Sinus Rhythm Rhythm change?: N Notified?: Y -Dr Clarice BLOOM Response: No New Orders Received Latest [place] Fall Score: 45 Fall Risk: High Risk Safety Measures: Call light Within Reach, Bed Alarm Zone 1, Side Rails Side Rails x2, Bed position Low and Locked. Fall Precautions: Yellow Socks Patient Fall Education Report given to [Angela RN].
[2020-02-14 20:00] VITALS: BP 134/82
[2020-02-15] VITALS: BP 144/78
[2020-02-15 04:00] VITALS: BP 140/79
[2020-02-15] MEDS: NovoLOG Insulin Flexpen SUBQ SCH ×4 (05:40→22:15)
--- NOTE | 2020-02-15 06:58 | NUR ---
NURSE HAND-OFF REPORT: Important Events on Shift: Pt tolerating oral care without desaturating. Patient Status: Stable Diet: CCHO Med Pending Orders: Pending Results/Labs: Pending MD notification: Latest Vital Signs: Temperature 98.9 , Pulse 93 , B/P 140 /79 , Respiratory Rate 22 , O2 SAT 94 , Non-Rebreather, O2 Flow Rate 10.0 . Vital Sign Comment: EKG Rhythm: Sinus Rhythm Rhythm change?: N MD Notified?: Jw Oneil MD Response: No New Orders Received Latest [place] Fall Score: 45 Fall Risk: High Risk Safety Measures: Call light Within Reach, Bed Alarm Zone 1, Side Rails Side Rails x2, Bed position Low and Locked. Fall Precautions: Yellow Socks Patient Fall Education Report given to Ani.
--- NOTE | 2020-02-15 07:03 | NUR ---
Nursing Note: Pt received from Angela OLGUIN. pt in bed awake and resting. bed low and locked, call light within reach. on venturis mask at 10 liters. Saturation 93%. no complaint of pain or distress.
[2020-02-15 07:10] LABS: BASOPHILS % (AUTO) 0.3 % (0.0-2.0); HEMATOCRIT 47.3 % (42.0-52.0); HEMOGLOBIN 15.8 G/DL (14.2-18.0); LYMPHOCYTES % (AUTO) 13.3 % (20.0-45.0); MEAN CORPUSCULAR VOLUME 90 FL (80-99); MONOCYTES % (AUTO) 3.4 % (1.0-10.0); NEUTROPHILS % (AUTO) 81.9 % (45.0-75.0); PLATELET COUNT 343 K/UL (150-450); RED BLOOD COUNT 5.27 M/UL (4.70-6.10); RED CELL DISTRIBUTION WIDTH 11.5 % (11.6-14.8); WHITE BLOOD COUNT 12.3 K/UL (4.8-10.8)
[2020-02-15 07:29] LABS: ANION GAP 9 mmol/L (5-15); BLOOD UREA NITROGEN 20 mg/dL (7-18); CALCIUM 9.2 MG/DL (8.5-10.1); CARBON DIOXIDE 26 MMOL/L (21-32); CHLORIDE 101 MMOL/L (98-107); CREATININE 0.7 MG/DL (0.55-1.30); POTASSIUM 3.7 MMOL/L (3.5-5.1); SODIUM 136 MMOL/L (136-145)
[2020-02-15 08:00] VITALS: BP 128/70
[2020-02-15] MEDS: Docusate 100mg cap ORAL SCH ×2 (08:38→20:50)
[2020-02-15] MEDS: dexAMETHasone 10mg/ml Inj IV SCH (08:38)
[2020-02-15] MEDS: Doxycycline Monohydrate 100mg ORAL SCH ×2 (08:38→20:50)
--- NOTE | 2020-02-15 09:02 | General Progress Note ---
Subjective Constitutional: Reports: weakness Allergies: Coded Allergies: No Known Allergies (Unverified , 02/09/20) All Systems: reviewed and negative except above Subjective o2 mask sleep Objective Last 24 Hour Vital Signs Date Time Temp Pulse Resp B/P (MAP) Pulse Ox O2 Delivery O2 Flow Rate FiO2 02/15/20 08:00 Venturi Mask 10.0 02/15/20 08:00 99.9 86 20 128/70 (89) 97 02/15/20 04:00 Venturi Mask 10.0 02/15/20 04:00 93 02/15/20 04:00 98.9 92 22 140/79 (99) 94 02/15/20 00:00 98.6 88 24 144/78 (100) 92 02/15/20 00:00 Venturi Mask 10.0 02/15/20 00:00 90 02/14/20 20:00 100 02/14/20 20:00 98.9 95 24 134/82 (99) 95 02/14/20 20:00 Venturi Mask 10.0 02/14/20 19:54 93 Non-Rebreather 15.0 100 02/14/20 19:54 94 20 93 Non-Rebreather 15.0 100 02/14/20 17:07 99.7 02/14/20 16:00 Venturi Mask 10.0 02/14/20 16:00 85 02/14/20 16:00 100.2 90 22 138/81 (100) 95 02/14/20 13:29 93 Venturi Mask 10.0 50 02/14/20 12:00 Non-Rebreather 15.0 02/14/20 12:00 99.9 83 22 138/80 (99) 100 02/14/20 12:00 83 02/14/20 09:13 100.0 Intake and Output 02/14/20 02/15/20 19:00 07:00 Intake Total 1200 ml 1100 ml Output Total 1800 ml 975 ml Balance -600 ml 125 ml Intake Oral 1200 ml 1100 ml Output Urine Total 1800 ml 975 ml # Voids 4 3 # Bowel Movements 1 Laboratory Tests 02/14/20 21:09: POC Whole Blood Glucose 285H 02/15/20 04:40: White Blood Count 12.3H, Red Blood Count 5.27, Hemoglobin 15.8, Hematocrit 47.3, Mean Corpuscular Volume 90, Mean Corpuscular Hemoglobin 29.9, Mean Corpuscular Hemoglobin Concent 33.3, Red Cell Distribution Width 11.5L, Platelet Count 343, Mean Platelet Volume 5.8L, Neutrophils (%) (Auto) 81.9H, Lymphocytes (%) (Auto) 13.3L, Monocytes (%) (Auto) 3.4, Eosinophils (%) (Auto) 1.0, Basophils (%) (Auto) 0.3, Sodium Level 136, Potassium Level 3.7, Chloride Level 101, Carbon Dioxide Level 26, Anion Gap 9, Blood Urea Nitrogen 20H, Creatinine 0.7, Estimat Glomerular Filtration Rate > 60, Glucose Level 198H, Calcium Level 9.2 02/15/20 05:09: POC Whole Blood Glucose 227H Height (Feet): 5 Height (Inches): 8.00 Weight (Pounds): 195 General Appearance: lethargic EENT: normal ENT inspection Neck: normal alignment Cardiovascular: normal peripheral pulses, normal rate, regular rhythm Respiratory/Chest: chest wall non-tender Abdomen: normal bowel sounds, non tender, soft Extremities: normal inspection Edema: no edema noted Arm (L), no edema noted Arm (R), no edema noted Leg (L), no edema noted Leg (R), no edema noted Pedal (L), no edema noted Pedal (R), no edema noted Generalized Neurologic: motor weakness Skin: normal pigmentation, warm/dry Assessment/Plan Problem List: (1) Hypoxia ICD Codes: R09.02 - Hypoxemia SNOMED: 807783953 (2) Pneumonia ICD Codes: J18.9 - Pneumonia, unspecified organism SNOMED: 226490243 (3) COVID-19 ICD Codes: U07.1 - COVID-19 SNOMED: 778564238 Status: unchanged Assessment/Plan: o2 pulm tx abx cbc bmp am Bruce Nolasco DO Feb 15, 2020 09:02
[2020-02-15] MEDS: Levemir Flexpen SUBQ SCH (09:12)
--- NOTE | 2020-02-15 09:13 | NUR ---
NURSE NOTES: Pt sat noted in high 80s on venturi. with rt switched back to non rebreather, nopw sat 92%
--- NOTE | 2020-02-15 11:02 | Pulmonology Progress Note ---
Subjective ROS Limited/Unobtainable: No Allergies: Coded Allergies: No Known Allergies (Unverified , 02/09/20) All Systems: reviewed and negative except above Subjective yesterday afternoon was able to be downgraded to , this am back on 100% NRM, sat 97% remains afebrile, mild leukocytosis reports some improvement in breathing denies CP, reports dry intermittent persistent cough, + chest discomfort with cough and deep breathing Objective Last 24 Hour Vital Signs Date Time Temp Pulse Resp B/P (MAP) Pulse Ox O2 Delivery O2 Flow Rate FiO2 02/15/20 08:00 113 02/15/20 08:00 Non-Rebreather 15.0 02/15/20 08:00 99.9 86 20 128/70 (89) 97 02/15/20 04:00 Venturi Mask 10.0 02/15/20 04:00 93 02/15/20 04:00 98.9 92 22 140/79 (99) 94 02/15/20 00:00 98.6 88 24 144/78 (100) 92 02/15/20 00:00 Venturi Mask 10.0 02/15/20 00:00 90 02/14/20 20:00 100 02/14/20 20:00 98.9 95 24 134/82 (99) 95 02/14/20 20:00 Venturi Mask 10.0 02/14/20 19:54 93 Non-Rebreather 15.0 100 02/14/20 19:54 94 20 93 Non-Rebreather 15.0 100 02/14/20 17:07 99.7 02/14/20 16:00 Venturi Mask 10.0 02/14/20 16:00 85 02/14/20 16:00 100.2 90 22 138/81 (100) 95 02/14/20 13:29 93 Venturi Mask 10.0 50 02/14/20 12:00 Non-Rebreather 15.0 02/14/20 12:00 99.9 83 22 138/80 (99) 100 02/14/20 12:00 83 Intake and Output 02/14/20 02/15/20 19:00 07:00 Intake Total 1200 ml 1100 ml Output Total 1800 ml 975 ml Balance -600 ml 125 ml Intake Oral 1200 ml 1100 ml Output Urine Total 1800 ml 975 ml # Voids 4 3 # Bowel Movements 1 General Appearance: WD/WN - middle age Spanisg speaking male in mild resp distress , no acute distress HEENT: normocephalic, atraumatic, anicteric, mucous membranes moist, PERRL Respiratory: chest wall non-tender, decreased breath sounds, other - mild resp distress, tachypnea Cardiovascular: normal rate - to low tachy , regular rhythm Abdomen: normal bowel sounds, soft, non tender Extremities: no edema, pedal pulses normal Skin: no rash 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, no motor/sensory deficits, alert, oriented x 3, responsive Musculoskeletal: normal muscle bulk Laboratory Tests 02/14/20 21:09: POC Whole Blood Glucose 285H 02/15/20 04:40: White Blood Count 12.3H, Red Blood Count 5.27, Hemoglobin 15.8, Hematocrit 47.3, Mean Corpuscular Volume 90, Mean Corpuscular Hemoglobin 29.9, Mean Corpuscular Hemoglobin Concent 33.3, Red Cell Distribution Width 11.5L, Platelet Count 343, Mean Platelet Volume 5.8L, Neutrophils (%) (Auto) 81.9H, Lymphocytes (%) (Auto) 13.3L, Monocytes (%) (Auto) 3.4, Eosinophils (%) (Auto) 1.0, Basophils (%) (Auto) 0.3, Sodium Level 136, Potassium Level 3.7, Chloride Level 101, Carbon Dioxide Level 26, Anion Gap 9, Blood Urea Nitrogen 20H, Creatinine 0.7, Estimat Glomerular Filtration Rate > 60, Glucose Level 198H, Calcium Level 9.2 02/15/20 05:09: POC Whole Blood Glucose 227H Current Medications Medications (Trade) Dose Ordered Sig/Deepa Route PRN Reason Start Time Stop Time Status Last Admin Dose Admin Acetaminophen (Tylenol) 500 mg Q6H PRN ORAL Mild Pain (Pain Scale 1-3) 02/09/20 19:30 03/10/20 19:29 Acetaminophen (Tylenol) 500 mg Q6H PRN ORAL Temp >100.5 02/09/20 19:45 03/10/20 19:44 02/14/20 16:37 Albuterol/ Ipratropium (Combivent Respimat) 1 puff Q6HRT INH 02/10/20 20:00 03/11/20 19:59 1/8/21 08:39 Bisacodyl (Dulcolax) 10 mg DAILYPRN PRN RECTAL Constipation 02/09/20 19:30 05/09/20 19:29 Ceftriaxone Sodium 1 gm/ Dextrose 55 ml @ 110 mls/hr Q24H IVPB 02/10/20 14:00 02/17/20 13:59 02/14/20 13:15 Dexamethasone Sodium Phosphate (Decadron 10mg/ ml Inj) 6 mg DAILY IV 02/10/20 09:00 02/19/20 09:01 02/15/20 08:38 Dextrose (Dextrose 50%) 25 ml Q30M PRN IV Hypoglycemia 02/09/20 19:30 05/09/20 19:29 Dextrose (Dextrose 50%) 50 ml Q30M PRN IV Hypoglycemia 02/09/20 19:30 05/09/20 19:29 Diphenhydramine HCl (Benadryl) 25 mg Q6H PRN ORAL Itching/Pruritis 02/09/20 19:30 03/10/20 19:29 Docusate Sodium (Colace) 100 mg EVERY 12 HOURS ORAL 02/09/20 21:00 03/10/20 20:59 02/15/20 08:38 Doxycycline Monohydrate (Doxycycline Monohydrate) 100 mg EVERY 12 HOURS ORAL 02/09/20 21:00 02/16/20 20:59 02/15/20 08:38 Enoxaparin Sodium (Lovenox) 40 mg Q24H SUBQ 02/10/20 15:00 05/10/20 14:59 02/14/20 15:32 Guaifenesin/ Dextromethorphan (Robitussin DM Syrup) 10 ml Q4H PRN ORAL For Cough 02/10/20 12:00 05/10/20 11:59 02/13/20 21:08 Hydralazine HCl (Apresoline) 10 mg Q4H PRN IV htn 02/09/20 20:30 05/09/20 20:29 Insulin Aspart (NovoLOG) BEFORE MEALS AND HS SUBQ 02/09/20 21:00 05/09/20 20:59 02/15/20 05:40 Insulin Detemir (Levemir) 5 units DAILY SUBQ 02/11/20 12:00 05/11/20 11:59 02/15/20 09:12 Magnesium Hydroxide (Mom) 30 ml HSPRN PRN ORAL Constipation 02/09/20 19:30 03/10/20 19:29 Ondansetron HCl (Zofran) 4 mg Q6H PRN IVP Nausea & Vomiting 02/09/20 19:30 03/10/20 19:29 Oxycodone HCl (Roxicodone) 5 mg Q6H PRN ORAL pain 4-10 02/09/20 19:30 02/16/20 19:29 Pantoprazole (Protonix) 40 mg DAILY ORAL 02/10/20 09:00 03/11/20 08:59 02/15/20 08:38 Polyethylene Glycol (Miralax) 17 gm DAILYPRN PRN ORAL Constipation 02/09/20 19:30 03/10/20 19:29 Prochlorperazine (Compazine) 10 mg Q6H PRN IVP Nausea & Vomiting 02/09/20 19:30 03/10/20 19:29 Assessment/Plan Assessment/Plan ASSESSMENT/PROBLEM LIST: * COVID 19 PNEUMONIA * ACUTE HYPOXEMIC RESPIRATORY FAILURE 2/2 ABOVE * B PULMONARY INFILTRATES 2/2 ABOVE * Asthma * DM * HTN * Obesity PLAN: Day of positive test : 02/08 rapid COVID 19 + * O2- NRM ; titrate settings as tolerated * ABG noted , sat 92- 95% on monitor * Optimize pulmonary hygiene/mobilize as tolerated * Titrate down FiO2 to keep SaO2 > 90% * encourage prone position as tolerated * Dex D7 ( 1/2 -) * s/p Rem x 5 days * COMBIVENT * Monitor inflammatory markers CRP 31.9-> 133.2 -72.2 * CXR 1/5 - Bilateral infiltrates , unchanged. * Monitor volumes and renal function * DVT Px: LMWH * Venous Duplex BLE NGT * a/tussive prn * FC * f/up with consultants recs case discussed and evaluated by supervising physician Clarissa Loera NP Feb 15, 2020 11:02
--- NOTE | 2020-02-15 11:57 | NUR ---
Loading Dock HandSupport Architect SI: Respiratory Failure, COVID PNA T-99.9 (ax), HR 86, RR 20, BP 128/70 15L NRM, FiO2 100% O2 sat 97% WBC 12.3 blood glucose 198 IS: Remdisivir IV QD Lovenox sq QD Rocephin IV QD Dexamethasone IV QD SDU Status
[2020-02-15 12:00] VITALS: BP 131/77
[2020-02-15] MEDS: Acetaminophen 500mg (ES) tab ORAL PRN (12:48)
[2020-02-15] MEDS: cefTRIAXone 1 GM in D5W 55 ML IVPB SCH (13:22)
--- NOTE | 2020-02-15 15:25 | Cardiac Electrophysiology PN ---
Assessment/Plan Assessment/Plan 1. Sinus tachycardia due to respiratory failure due to COVID-19. EKG sinus rhythm with right bundle-branch block. EF 65% 2. COVID-19 pneumonia. On dexamethasone, ceftriaxone and non-rebreather face mask. 3. History of hypertension, on p.r.n. IV hydralazine. 4. Diabetes, on sliding scale insulin. Subjective Subjective On 10 liter VM and 50% Fio2. EF 65% in Sinus rhythm.In Covid isolation in SR Objective Last 24 Hour Vital Signs Date Time Temp Pulse Resp B/P (MAP) Pulse Ox O2 Delivery O2 Flow Rate FiO2 02/15/20 13:18 100.5 02/15/20 12:00 79 02/15/20 12:00 101.5 79 20 131/77 (95) 97 02/15/20 12:00 Non-Rebreather 15.0 02/15/20 08:00 113 02/15/20 08:00 Non-Rebreather 15.0 02/15/20 08:00 99.9 86 20 128/70 (89) 97 02/15/20 07:20 88 20 95 Non-Rebreather 15.0 100 02/15/20 07:20 94 Venturi Mask 10.0 50 02/15/20 04:00 Venturi Mask 10.0 02/15/20 04:00 93 02/15/20 04:00 98.9 92 22 140/79 (99) 94 02/15/20 00:00 98.6 88 24 144/78 (100) 92 02/15/20 00:00 Venturi Mask 10.0 02/15/20 00:00 90 02/14/20 20:00 100 02/14/20 20:00 98.9 95 24 134/82 (99) 95 02/14/20 20:00 Venturi Mask 10.0 02/14/20 19:54 93 Non-Rebreather 15.0 100 02/14/20 19:54 94 20 93 Non-Rebreather 15.0 100 02/14/20 17:07 99.7 02/14/20 16:00 Venturi Mask 10.0 02/14/20 16:00 85 02/14/20 16:00 100.2 90 22 138/81 (100) 95 Intake and Output 02/14/20 02/15/20 19:00 07:00 Intake Total 1200 ml 1100 ml Output Total 1800 ml 975 ml Balance -600 ml 125 ml Intake Oral 1200 ml 1100 ml Output Urine Total 1800 ml 975 ml # Voids 4 3 # Bowel Movements 1 Laboratory Tests Test 02/14/20 21:09 02/15/20 04:40 02/15/20 05:09 POC Whole Blood Glucose 285 MG/DL (74-106) H 227 MG/DL (74-106) H White Blood Count 12.3 K/UL (4.8-10.8) H Red Blood Count 5.27 M/UL (4.70-6.10) Hemoglobin 15.8 G/DL (14.2-18.0) Hematocrit 47.3 % (42.0-52.0) Mean Corpuscular Volume 90 FL (80-99) Mean Corpuscular Hemoglobin 29.9 PG (27.0-31.0) Mean Corpuscular Hemoglobin Concent 33.3 G/DL (32.0-36.0) Red Cell Distribution Width 11.5 % (11.6-14.8) L Platelet Count 343 K/UL (150-450) Mean Platelet Volume 5.8 FL (6.5-10.1) L Neutrophils (%) (Auto) 81.9 % (45.0-75.0) H Lymphocytes (%) (Auto) 13.3 % (20.0-45.0) L Monocytes (%) (Auto) 3.4 % (1.0-10.0) Eosinophils (%) (Auto) 1.0 % (0.0-3.0) Basophils (%) (Auto) 0.3 % (0.0-2.0) Sodium Level 136 MMOL/L (136-145) Potassium Level 3.7 MMOL/L (3.5-5.1) Chloride Level 101 MMOL/L (98-107) Carbon Dioxide Level 26 MMOL/L (21-32) Anion Gap 9 mmol/L (5-15) Blood Urea Nitrogen 20 mg/dL (7-18) H Creatinine 0.7 MG/DL (0.55-1.30) Estimat Glomerular Filtration Rate > 60 mL/min (>60) Glucose Level 198 MG/DL (74-106) H Calcium Level 9.2 MG/DL (8.5-10.1) Objective HEAD AND NECK: no JVD.VM is on LUNGS: Coarse rhonchi. CARDIOVASCULAR: regular S1 and S2 and tachycardic. ABDOMEN: Soft. EXTREMITIES: No pitting edema. Kiko Rubalcava MD Feb 15, 2020 15:25
[2020-02-15] MEDS ORDERED: NS 275ml ONE (15:33)
[2020-02-15] MEDS ORDERED: Tubing IV Secondary IV ONE (15:33)
[2020-02-15] MEDS: Enoxaparin 40mg Inj SUBQ SCH (15:52)
[2020-02-15 16:00] VITALS: BP 126/77
--- NOTE | 2020-02-15 18:32 | NUR ---
NURSE HAND-OFF REPORT: Important Events on Shift:[Pt had another episode of fever. tylenol resolved. Pt put on non rebreather in the AM as saturation was high 80's. However titrated back to venturi. Per MDs ok to transfer to [facility], waiting for rn to be available. ] Patient Status: [Full code] Diet: [CCHO M] Pending Orders: [] Pending Results/Labs:[] Pending MD notification:[] Latest Vital Signs: Temperature 99.9 , Pulse 91 , B/P 126 /77 , Respiratory Rate 20 , O2 SAT 94 , Non-Rebreather, O2 Flow Rate 10.0 . Vital Sign Comment: [] EKG Rhythm: Sinus Rhythm Rhythm change?: N MD Notified?: Jw Oneil MD Response: No New Orders Received Latest [place] Fall Score: 45 Fall Risk: High Risk Safety Measures: Call light Within Reach, Bed Alarm Zone 1, Side Rails Side Rails x2, Bed position Low and Locked. Fall Precautions: Yellow Socks Patient Fall Education Report given to [Pending Rn assignment]. Addendum: 02/15/20 at 1914 by Emily Franco RN Report given to Eliel OLGUIN
--- NOTE | 2020-02-15 19:23 | NUR ---
NURSE NOTES: Received report from SHARIF Diaz. Pt is A/Ox4 and verbally responsive most in [place], able to make needs known. On cardiac specialist showing SR 92 bpm. On Venturi mask 50% @ 10L, saturating @ 93%. SOB on exertion. IV site L wrist 22G which is intact, patent. and flushed well. Safety measures in place, bed is in the lowest position with siderails x 2 and locked. Call light and bedside table is within reach. Will continue plan of care.
[2020-02-15 20:00] VITALS: BP 132/81
--- NOTE | 2020-02-15 20:16 | CDS Physician Query ---
Clarification is required for compliance, coding accuracy, and to reflect severity of illness for this patient Dear Salvatore Nuno D.O. Date: 02/15/2020 Kitchen Work Supervisor/CDS Name: MEGAN DE LA TORRE Clinical Documentation States: 49-year-old male with a past medical history of diabetes, hypertension, asthma who presents with 2-week history of worsening productive cough and shortness of breath. Also with subjective fever and chills. His was diagnosed with COVID-19 but he himself has not yet been tested. His symptoms have worsened over the past few days. He had some chest pain, midsternal, pleuritic, non- radiating, 2/10, earlier in the day which has now resolved. Also with some palpitations. But no dizziness, syncope or near syncope. [ H&P Salvatore Wood D.O.. 02/09/20] Assessment:Acute hypoxic respiratory failure secondary to Covid pneumonia, CAP,Covid pneumonia Dyspnea, Sinus tachycardia due to COVID pna, chest pain, resolved. Likely related to COVID. Appreciate cards input Fever due to above, asthma, does not appear to be in exacerbation NUTRITION DIAGNOSIS: Altered nutrition related lab values r/t clinical status as evidenced by elev BG ([phone]), A1C 8.2, w/ elev POC (202-299), on NRB mask, covid + pna. User: Seema Godfrey RD Clinical Finding Show: BMI: 29.6kg/m2 LAB (02/08) : Chem: Albumin 2.8 [3.4-5.0], Calcium lv. 8.9, Lymphocytes: 0.964 k/ul Please select the most appropriate option: [] Protein/Calorie Malnutrition [] Mild [] Moderate [] Severe [] Hypoalbuminemia [] Other [] Unable to determine [] Not Applicable Present on Admission: [] Yes [] No [] Clinically Undetermined Physician signature Date Please also document in your Progress Notes and/or Discharge Summary and indicate if the condition was present on admission. MTDD
--- NOTE | 2020-02-15 20:25 | NUR ---
NURSE HAND-OFF REPORT: Important Events on Shift: Stable Patient Status: Stable Diet: CCHO medium Pending Orders: Pending Results/Labs: Pending MD notification: Latest Vital Signs: Temperature 99.9 , Pulse 83 , B/P 126 /77 , Respiratory Rate 20 , O2 SAT 93 , Non-Rebreather, O2 Flow Rate 10.0 . Vital Sign Comment: Stable no fever EKG Rhythm: Sinus Rhythm Rhythm change?: N MD Notified?: MD Response: Latest [place] Fall Score: 45 Fall Risk: High Risk Safety Measures: Call light Within Reach, Bed Alarm Zone 1, Side Rails Side Rails x2, Bed position Low and Locked. Fall Precautions: Yellow Socks Patient Fall Education Report given to SHARIF Box TELE.
--- NOTE | 2020-02-15 20:29 | NUR ---
NURSE NOTES: Pt transferred to tele floor, in no apparent acute cardiac and respiratory distress noted. Denies any pain or discomfort at the moment. Endorsed to Jewell Box. Belongings checked and signed with the receiving nurse. Pt has a slade on hand but refused to be checked, charge nurse qamar made aware and documentation on the chart.
--- NOTE | 2020-02-15 20:30 | NUR ---
NURSE NOTES: PATIENT TRANSFERRED FROM [facility] TO TELE IN STABLE CONDITION. PATIENT AWAKE, ALERT/ORIENTED X3, ABLE TO VERBALIZE NEEDS IN WELSH, DENIES PAIN. NO SIGNS AND SYMPTOMS OF ACUTE CARDIO RESPIRATORY DISTRESS/SHORTNESS OF BREATH, VENTURI MASK/10L, SOB ON EXERTION, NOTED WITH DRY NON PRODUCTIVE COUGH, NO PERIPHERAL EDEMA NOTED. IV INTACT TO LEFT WRIST/GAUGE 22, SALINE LOCK. ABDOMEN SOFT/NON DISTENDED/NON TENDER, BOWELS AUDIBLE, DENIES N/V/D. CONTINENT OF B/B. SIDE RAILS UP X3/BED IN LOWEST POSITION FOR SAFETY, CALL LIGHT WITHIN REACH AT ALL TIMES, ENCOURAGED PATIENT UTILIZE CALL LIGHT FOR ASSISTANCE, PATIENT VERBALIZED UNDERSTANDING. CONTINUE WITH CURRENT PLAN OF CARE. NAD.,
[2020-02-16] VITALS: BP 118/74
[2020-02-16 04:00] VITALS: BP 133/72
[2020-02-16 06:13] LABS: BASOPHILS % (AUTO) 0.3 % (0.0-2.0); EOSINOPHILS % (AUTO) 0.6 % (0.0-3.0); HEMATOCRIT 44.3 % (42.0-52.0); HEMOGLOBIN 15.3 G/DL (14.2-18.0); LYMPHOCYTES % (AUTO) 16.7 % (20.0-45.0); MEAN CORPUSCULAR VOLUME 87 FL (80-99); MONOCYTES % (AUTO) 3.6 % (1.0-10.0); NEUTROPHILS % (AUTO) 78.8 % (45.0-75.0); PLATELET COUNT 298 K/UL (150-450); RED BLOOD COUNT 5.07 M/UL (4.70-6.10); RED CELL DISTRIBUTION WIDTH 12.2 % (11.6-14.8); WHITE BLOOD COUNT 9.5 K/UL (4.8-10.8)
[2020-02-16 06:23] LABS: ANION GAP 12 mmol/L (5-15); BLOOD UREA NITROGEN 20 mg/dL (7-18); CALCIUM 8.9 MG/DL (8.5-10.1); CARBON DIOXIDE 26 MMOL/L (21-32); CHLORIDE 101 MMOL/L (98-107); CREATININE 0.7 MG/DL (0.55-1.30); POTASSIUM 3.5 MMOL/L (3.5-5.1); SODIUM 138 MMOL/L (136-145)
[2020-02-16] MEDS: NovoLOG Insulin Flexpen SUBQ SCH (06:28)
--- NOTE | 2020-02-16 07:42 | Pulmonology Progress Note ---
Subjective ROS Limited/Unobtainable: No Allergies: Coded Allergies: No Known Allergies (Unverified , 02/09/20) All Systems: reviewed and negative except above Subjective transferred to tele on 50% VM leukocytosis resolved reports dry intermittent persistent cough, + chest discomfort with cough and deep breathing reports some improvement in breathing denies CP, Objective Last 24 Hour Vital Signs Date Time Temp Pulse Resp B/P (MAP) Pulse Ox O2 Delivery O2 Flow Rate FiO2 02/16/20 03:30 85 02/16/20 00:00 83 02/16/20 00:00 99.9 95 20 118/74 (89) 94 02/15/20 21:00 Venturi Mask 10.0 02/15/20 20:00 Venturi Mask 10.0 02/15/20 20:00 Venturi Mask 10.0 02/15/20 20:00 90 02/15/20 20:00 98.8 90 24 132/81 (98) 91 02/15/20 19:35 93 Venturi Mask 10.0 50 02/15/20 19:34 83 20 93 Venturi Mask 10.0 50 02/15/20 19:24 90 02/15/20 16:00 99.9 79 20 126/77 (93) 94 02/15/20 16:00 91 02/15/20 16:00 Venturi Mask 10.0 02/15/20 13:18 100.5 02/15/20 12:00 79 02/15/20 12:00 101.5 79 20 131/77 (95) 97 02/15/20 12:00 Non-Rebreather 15.0 02/15/20 08:00 113 02/15/20 08:00 Non-Rebreather 15.0 02/15/20 08:00 99.9 86 20 128/70 (89) 97 Intake and Output 02/15/20 02/16/20 19:00 07:00 Intake Total 1200 ml Output Total 1800 ml Balance -600 ml Intake Oral 1200 ml Output Urine Total 1800 ml # Voids 4 General Appearance: WD/WN - middle age Spanisg speaking male in mild resp distress , no acute distress HEENT: normocephalic, atraumatic, anicteric, mucous membranes moist, PERRL Respiratory: chest wall non-tender, normal breath sounds, other - 50% VM Cardiovascular: normal rate - to low tachy , regular rhythm Abdomen: normal bowel sounds, soft, non tender Extremities: no edema, pedal pulses normal Skin: no rash 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, no motor/sensory deficits, alert, oriented x 3, responsive Musculoskeletal: normal muscle bulk Laboratory Tests 02/15/20 21:01: POC Whole Blood Glucose 265H 02/16/20 05:00: White Blood Count 9.5, Red Blood Count 5.07, Hemoglobin 15.3, Hematocrit 44.3, Mean Corpuscular Volume 87, Mean Corpuscular Hemoglobin 30.1, Mean Corpuscular Hemoglobin Concent 34.5, Red Cell Distribution Width 12.2, Platelet Count 298, Mean Platelet Volume 5.6L, Neutrophils (%) (Auto) 78.8H, Lymphocytes (%) (Auto) 16.7L, Monocytes (%) (Auto) 3.6, Eosinophils (%) (Auto) 0.6, Basophils (%) (Auto) 0.3, Sodium Level 138, Potassium Level 3.5, Chloride Level 101, Carbon Dioxide Level 26, Anion Gap 12, Blood Urea Nitrogen 20H, Creatinine 0.7, Estimat Glomerular Filtration Rate > 60, Glucose Level 203H, Calcium Level 8.9 02/16/20 06:25: POC Whole Blood Glucose [Pending] Current Medications Medications (Trade) Dose Ordered Sig/Deepa Route PRN Reason Start Time Stop Time Status Last Admin Dose Admin Acetaminophen (Tylenol) 500 mg Q6H PRN ORAL Mild Pain (Pain Scale 1-3) 02/09/20 19:30 03/10/20 19:29 Acetaminophen (Tylenol) 500 mg Q6H PRN ORAL Temp >100.5 02/09/20 19:45 03/10/20 19:44 02/15/20 12:48 Albuterol/ Ipratropium (Combivent Respimat) 1 puff Q6HRT INH 02/10/20 20:00 03/11/20 19:59 02/16/20 07:07 Bisacodyl (Dulcolax) 10 mg DAILYPRN PRN RECTAL Constipation 02/09/20 19:30 05/09/20 19:29 Ceftriaxone Sodium 1 gm/ Dextrose 55 ml @ 110 mls/hr Q24H IVPB 02/10/20 14:00 02/17/20 13:59 02/15/20 13:22 Dexamethasone Sodium Phosphate (Decadron 10mg/ ml Inj) 6 mg DAILY IV 02/10/20 09:00 02/19/20 09:01 02/15/20 08:38 Dextrose (Dextrose 50%) 25 ml Q30M PRN IV Hypoglycemia 02/09/20 19:30 05/09/20 19:29 Dextrose (Dextrose 50%) 50 ml Q30M PRN IV Hypoglycemia 02/09/20 19:30 05/09/20 19:29 Diphenhydramine HCl (Benadryl) 25 mg Q6H PRN ORAL Itching/Pruritis 02/09/20 19:30 03/10/20 19:29 Docusate Sodium (Colace) 100 mg EVERY 12 HOURS ORAL 02/09/20 21:00 03/10/20 20:59 02/15/20 20:50 Doxycycline Monohydrate (Doxycycline Monohydrate) 100 mg EVERY 12 HOURS ORAL 02/09/20 21:00 02/16/20 20:59 02/15/20 20:50 Enoxaparin Sodium (Lovenox) 40 mg Q24H SUBQ 02/10/20 15:00 05/10/20 14:59 02/15/20 15:52 Guaifenesin/ Dextromethorphan (Robitussin DM Syrup) 10 ml Q4H PRN ORAL For Cough 02/10/20 12:00 05/10/20 11:59 02/13/20 21:08 Hydralazine HCl (Apresoline) 10 mg Q4H PRN IV htn 02/09/20 20:30 05/09/20 20:29 Insulin Aspart (NovoLOG) BEFORE MEALS AND HS SUBQ 02/09/20 21:00 05/09/20 20:59 02/16/20 06:28 Insulin Detemir (Levemir) 5 units DAILY SUBQ 02/11/20 12:00 05/11/20 11:59 02/15/20 09:12 Magnesium Hydroxide (Mom) 30 ml HSPRN PRN ORAL Constipation 02/09/20 19:30 03/10/20 19:29 Ondansetron HCl (Zofran) 4 mg Q6H PRN IVP Nausea & Vomiting 02/09/20 19:30 03/10/20 19:29 Oxycodone HCl (Roxicodone) 5 mg Q6H PRN ORAL pain 4-10 02/09/20 19:30 02/16/20 19:29 Pantoprazole (Protonix) 40 mg DAILY ORAL 02/10/20 09:00 03/11/20 08:59 02/15/20 08:38 Polyethylene Glycol (Miralax) 17 gm DAILYPRN PRN ORAL Constipation 02/09/20 19:30 03/10/20 19:29 Prochlorperazine (Compazine) 10 mg Q6H PRN IVP Nausea & Vomiting 02/09/20 19:30 03/10/20 19:29 Assessment/Plan Assessment/Plan ASSESSMENT/PROBLEM LIST: * COVID 19 PNEUMONIA * ACUTE HYPOXEMIC RESPIRATORY FAILURE 2/2 ABOVE * B PULMONARY INFILTRATES 2/2 ABOVE * Asthma * DM * HTN * Obesity PLAN: Day of positive test : 02/08 rapid COVID 19 + * O2- 50% VM ; titrate settings as tolerated * ABG noted , sat 92- 95% on monitor * Optimize pulmonary hygiene/mobilize as tolerated * Titrate down FiO2 to keep SaO2 > 90% * encourage prone position as tolerated * Dex D8 ( 02/08 -) * s/p Rem x 5 days * COMBIVENT * Monitor inflammatory markers CRP 31.9-> 133.2 -72.2 * CXR 02/11 - Bilateral infiltrates , unchanged. * Monitor volumes and renal function * DVT Px: LMWH * Venous Duplex BLE NGT * a/tussive prn * FC * f/up with consultants recs case discussed and evaluated by supervising physician Clarissa Loera NP Feb 16, 2020 07:42
[2020-02-16 08:00] VITALS: BP 115/73
--- NOTE | 2020-02-16 08:14 | NUR ---
NURSE HAND-OFF REPORT: Important Events on Shift:[RESTED WELL THROUGHOUT THE NIGHT, NAD.] Patient Status: [STABLE] Diet: [CCHO M] Pending Orders: [C XRAY / AM LABAS 02/16/20] Pending Results/Labs:[AM LABS] Pending MD notification:[] Latest Vital Signs: Temperature 98.9 , Pulse 94 , B/P 133 /72 , Respiratory Rate 20 , O2 SAT 95 , Non-Rebreather, O2 Flow Rate 10.0 . Vital Sign Comment: [STABLE, AFEBRILE] EKG Rhythm: Sinus Rhythm Rhythm change?: N Notified?: wJ Oneil MD Response: No New Orders Received Latest [place] Fall Score: 45 Fall Risk: High Risk Safety Measures: Call light Within Reach, Bed Alarm Zone 1, Side Rails Side Rails x2, Bed position Low and Locked. Fall Precautions: Yellow Socks Patient Fall Education Report given to [SHARIF MTZ].
--- NOTE | 2020-02-16 08:20 | NUR ---
NURSE NOTES: Patient seen in bed in low fowlers position and has just finished breakfast and brushing teeth. the patient in on venturi mask 10L and oxygen saturation within normal limits. The patient does not complain of any pain or shortness of breath. All patients request have been met at this time. The patients bed is in lowest position, locked, side rails x2 and call light within reach. patient educated engineer gas pumping station light for any further needs.
--- NOTE | 2020-02-16 08:32 | General Progress Note ---
Subjective Constitutional: Reports: weakness Allergies: Coded Allergies: No Known Allergies (Unverified , 02/09/20) All Systems: reviewed and negative except above Subjective o2 mask sleep Objective Last 24 Hour Vital Signs Date Time Temp Pulse Resp B/P (MAP) Pulse Ox O2 Delivery O2 Flow Rate FiO2 02/16/20 04:00 98.9 94 20 133/72 (92) 95 02/16/20 03:30 85 02/16/20 00:00 83 02/16/20 00:00 99.9 95 20 118/74 (89) 94 02/15/20 21:00 Venturi Mask 10.0 02/15/20 20:00 Venturi Mask 10.0 02/15/20 20:00 Venturi Mask 10.0 02/15/20 20:00 90 02/15/20 20:00 98.8 90 24 132/81 (98) 91 02/15/20 19:35 93 Venturi Mask 10.0 50 02/15/20 19:34 83 20 93 Venturi Mask 10.0 50 02/15/20 19:24 90 02/15/20 16:00 99.9 79 20 126/77 (93) 94 02/15/20 16:00 91 02/15/20 16:00 Venturi Mask 10.0 02/15/20 13:18 100.5 02/15/20 12:00 79 02/15/20 12:00 101.5 79 20 131/77 (95) 97 02/15/20 12:00 Non-Rebreather 15.0 Intake and Output 02/15/20 02/16/20 19:00 07:00 Intake Total 1200 ml Output Total 1800 ml Balance -600 ml Intake Oral 1200 ml Output Urine Total 1800 ml # Voids 4 Laboratory Tests 02/15/20 21:01: POC Whole Blood Glucose 265H 02/16/20 05:00: White Blood Count 9.5, Red Blood Count 5.07, Hemoglobin 15.3, Hematocrit 44.3, Mean Corpuscular Volume 87, Mean Corpuscular Hemoglobin 30.1, Mean Corpuscular Hemoglobin Concent 34.5, Red Cell Distribution Width 12.2, Platelet Count 298, Mean Platelet Volume 5.6L, Neutrophils (%) (Auto) 78.8H, Lymphocytes (%) (Auto) 16.7L, Monocytes (%) (Auto) 3.6, Eosinophils (%) (Auto) 0.6, Basophils (%) (Auto) 0.3, Sodium Level 138, Potassium Level 3.5, Chloride Level 101, Carbon Dioxide Level 26, Anion Gap 12, Blood Urea Nitrogen 20H, Creatinine 0.7, Estimat Glomerular Filtration Rate > 60, Glucose Level 203H, Calcium Level 8.9 02/16/20 06:25: POC Whole Blood Glucose [Pending] Height (Feet): 5 Height (Inches): 8.00 Weight (Pounds): 195 General Appearance: lethargic EENT: normal ENT inspection Neck: normal alignment Cardiovascular: normal peripheral pulses, normal rate, regular rhythm Respiratory/Chest: chest wall non-tender, lungs clear, normal breath sounds Abdomen: normal bowel sounds, non tender, soft Extremities: normal inspection Edema: no edema noted Arm (L), no edema noted Arm (R), no edema noted Leg (L), no edema noted Leg (R), no edema noted Pedal (L), no edema noted Pedal (R), no edema noted Generalized Neurologic: motor weakness Skin: normal pigmentation, warm/dry Assessment/Plan Problem List: (1) Hypoxia ICD Codes: R09.02 - Hypoxemia SNOMED: 090638733 (2) Pneumonia ICD Codes: J18.9 - Pneumonia, unspecified organism SNOMED: 412560113 (3) COVID-19 ICD Codes: U07.1 - COVID-19 SNOMED: 752558322 Status: unchanged Assessment/Plan: o2 pulm tx abx cbc bmp am Bruce Nolasco DO Feb 16, 2020 08:32
[2020-02-16] MEDS: Docusate 100mg cap ORAL SCH (08:52)
[2020-02-16] MEDS: dexAMETHasone 10mg/ml Inj IV SCH (08:52)
[2020-02-16] MEDS: Doxycycline Monohydrate 100mg ORAL SCH (08:52)
[2020-02-16] MEDS: Levemir Flexpen SUBQ SCH (08:57)
--- NOTE | 2020-02-16 11:12 | Diagnostic Imaging Report ---
EXAM: XR Chest, 1 View CLINICAL HISTORY: SOB TECHNIQUE: Frontal view of the chest. COMPARISON: Chest radiograph on 02/12/2020 FINDINGS: Hardware: None. Lungs/pleura: Increased patchy consolidations throughout the lungs. No pleural effusion or pneumothorax. Stable elevation of the right hemidiaphragm. Heart/mediastinum: Stable borderline size of the cardiac silhouette. Soft tissues: Unremarkable. Bones: No acute fracture. Degenerative changes of the spine. Upper abdomen: Normal. IMPRESSION: Increased patchy consolidation throughout the lungs, concerning for Covid 19 infection.
--- NOTE | 2020-02-16 11:36 | NUR ---
NURSE NOTES: Nurse responded immediately to patient pressing martha light once nurse arrived patient was found to be tachypneic with rate of 32 breaths per minute. Patient was on 10L venturi mask at the moment with oxygen saturation at 77%. Patient was put in high fowlers position for proper respiration. Patients oxygen saturation continued to decline and PRODUCTION PACKAGER was called and placed on 15L nonrebreather. The patient then became unresponsive and Joanne calhoun was called. Chest compression were immediately began on patient. Dr. Babcock arrived at the bedside and resuscitation efforts were continued for 25 minutes. Patient maintained a PEA while efforts to resuscitate continued until Dr stopped the code at 1131 and pronounced the patient.
--- NOTE | 2020-02-16 12:05 | NUR ---
CHARGE NURSE NOTES: [facility] notified. Report given to Tiki # CC [phone]
--- NOTE | 2020-02-16 12:27 | NUR ---
CHARGE NURSE NOTES: Call place to Dr Rainey. Message left with answering service regarding contacting pt's family with notification of .
--- NOTE | 2020-02-16 12:41 | Emergency Room Report ---
History of Present Illness General Chief Complaint: Dyspnea/Respdistress Source: Patient Present Illness Allergies: Coded Allergies: No Known Allergies (Unverified , 02/09/20) COVID-19 Screening Contact w/high risk pt: Yes Experienced COVID-19 symptoms?: Yes COVID-19 Testing performed ORAL AND MAXILLOFACIAL SURGEON: No COVID-19 Screening: Positive COVID-19 Nursing Documentation-PMH Hx Cardiac Problems: Yes Hx Hypertension: Yes Hx Asthma: Yes Hx Diabetes: Yes Hx Cancer: No Hx Gastrointestinal Problems: No Hx Neurological Problems: No Physical Exam Vital Signs Date Time Temp Pulse Resp B/P (MAP) Pulse Ox O2 Delivery O2 Flow Rate FiO2 02/12/20 07:10 79 20 93 Non-Rebreather 15.0 100 02/12/20 08:00 98.4 136/92 (107) Medical Decision Making Diagnostic Impression: Primary Impression: Hypoxia Additional Impressions: Elevated d-dimer COVID-19 Pneumonia ER Course I was called to CODE BLUE on patient for asystole. Patient's bedside nurse states that the patient became progressively hypoxic and went into asystole. When I arrived to the room CPR was in progress and patient was being bagged. Please refer to CODE BLUE note for exact timing and medications given. Throughout the code patient was given 5 A of epi, 1 amp of sodium bicarbonate and 1 amp of calcium gluconate. Patient remained in asystole throughout the entire code. Patient was pronounced at 11:31 AM. Last Vital Signs Date Time Temp Pulse Resp B/P (MAP) Pulse Ox O2 Delivery O2 Flow Rate FiO2 02/16/20 09:00 Venturi Mask 10.0 02/16/20 08:00 102 02/16/20 08:00 98.8 20 115/73 (87) 90 02/16/20 07:58 50 Disposition: Condition: Referrals: NOT CHOSEN MACY/,REFERRING (PCP) Jen Mccracken M.D. Feb 16, 2020 12:40
--- NOTE | 2020-02-19 12:48 | Discharge Summary ---
Discharge Summary Discharge Summary _ SUMMARY DATE OF ADMISSION: 02/09/2020 DATE OF EXPIRATION: 02/16/2020 REASON FOR ADMISSION: 49 years old male with past medical history of obesity, diabetes mellitus, hypertension, presented to emergency department complaining of cough , fevers and shortness of breath for the last 2 weeks. He did not have a prior Covid testing, but his had Covid. Upon evaluation in ED patient was febrile with temperature 100.8 , tachycardic with heart rate 122 and hypoxic, requiring nonrebreather mask. Chest x-ray revealed bilateral infiltrates. Rapid COVID-19 was positive. Laboratory work-up revealed no leukocytosis , stable hemoglobin , hematocrit and platelet count. D-dimer 0.73, LDH 401, ferritin 1441 and CRP 31.9. Troponin negative. Lactic acid 1.7. Stable electrolytes and renal parameters. Glucose 246. AST 53 , ALT 57 In emergency department patient was placed on nonrebreather mask, received steroid, empiric antibiotic, liter of fluid, Tylenol, Lovenox , Albuterol and admitted for further management . CONSULTANTS: chute greaser Dr. Jesus pulmonary Dr. Malagon ID specialist Dr. Jade [facility]SE: Patient admitted to [facility] isolation room. Patient was on nonrebreather mask. Patient received remdesivir for 5 days and dexamethasone for 8 days. Supplemental oxygen titrated to keep pulse oximetry above 92%. Combivent provided. Patient was followed-up with ABG. Inflammatory markers were closely monitored. Patient was followed-up with chest x-ray , that showed unchanged bilateral infiltrates. DVT prophylaxis with low molecular weight heparin provided. Venous duplex bilateral lower extremity was negative. Antitussive provided as needed. Volumes and renal parameters were closely monitored. Electrolytes corrected as needed. GI prophylaxis provided. Blood pressure was closely monitored and remained stable. Diabetic diet and diabetic teaching provided. Hemoglobin A1c 8.4. Blood sugar was managed with s long acting Levemir and sliding scale of short acting insulin Patient was able to be weaned to Venturi mask. On 02/15 patient went to a cardiopulmonary arrest due to asystole. ACLS protocol initiated. Unfortunately all resuscitative efforts appeared to be futile . Patient remained in asystole throughout the entire code. Patient was pronounced at 11:31 AM 02/16/2020. Cause of : cardiopulmonary arrest FINAL DIAGNOSES: s/p cardiopulmonary arrest Covid pneumonia Acute hypoxemic respiratory failure secondary to Covid pneumonia Asthma Diabetes mellitus Hypertension Obesity I have been assigned to dictate discharge summary for this account. Clarissa Loera NP Feb 19, 2020 12:48
== END 2020-02-16 11:31 | disposition expired | DRG 137 ==
LOC: EMR 14:05 → 2W 14:28 → EDBEDREQ 18:01 → 2E 02-15 20:36
PROC: XW033E5 Introduction of Remdesivir Anti-infective into Peripheral Vein, Percutaneous Approach, New Technology Group 5 (ICD-10-PCS; principal; 2020-02-09)
DX: U07.1 COVID-19 (principal); I46.9 Cardiac arrest, cause unspecified; J96.01 Acute respiratory failure with hypoxia; J12.82 Pneumonia due to coronavirus disease 2019; J45.909 Unspecified asthma, uncomplicated; E11.9 Type 2 diabetes mellitus without complications; I10 Essential (primary) hypertension; E66.9 Obesity, unspecified; R00.0 Tachycardia, unspecified; Z79.4 Long term (current) use of insulin; I45.10 Unspecified right bundle-branch block; Z68.30 Body mass index [BMI] 30.0-30.9, adult
CPT/HCPCS: 36415; 71045; 80048; 80053; 80061; 82248; 82550; 82553; 82728; 82803; 82962; 83036; 83605; 83615; 83690; 83735; 83880; 84100; 84439; 84443; 84484; 85007; 85025; 85379; 85610; 85730; 86140; 87040; 92950; 93005; 93306; 93970; 96361; 96365; 96367; 96372; 96375; 99291; J1815; J3490; J7030; S5561; U0002